=== PATIENT | female | born 1975 | race Caucasian/White ===

== ENCOUNTER 2019-12-31 13:08 | Observation (INO) | payer BC ==
[2019-12-31 15:42] LABS: Basophils % 1.1 % (0-1.3); Lymphocytes % 40.3 % (15.3-44.8); RBC Red Blood Cell Count 3.56 M/uL (3.86-4.86)
[2019-12-31 15:43] LABS: BUN Blood Urea Nitrogen 11 mg/dL (7-18); Bicarbonate 23 mmol/L (21-32); Glucose Level 88 mg/dL (74-106); Potassium 3.9 mmol/L (3.5-5.1); Sodium Level 138 mmol/L (136-145)
[2019-12-31 15:53] LABS: Hematocrit 19.6 % (36.0-45.0)
[2019-12-31] MEDS ORDERED: LORazepam 2 MG/ML VIAL ONE (16:11)
[2019-12-31] MEDS ORDERED: ONDANSETRON 4 MG/2 ML VIAL ONE ×2 (16:12→19:15)
[2019-12-31] MEDS ORDERED: ACETAMINOPHEN 500 MG TAB PO PRN (17:30)
--- NOTE | 2019-12-31 17:41 | P.HP ---
Certification for Inpatient Patient admitted to: Observation With expected LOS: <2 Midnights Patient will require the following post-hospital care: None Practitioner: I am a practitioner with admitting privileges, knowledge of patient current condition, hospital course, and medical plan of care. Services: Services provided to patient in accordance with Admission requirements found in Title 42 Section 412.3 of the Code of Federal Regulations Patient History Date of Service: 12/31/19 Reason for admission: Anemia History of Present Illness: 44-year-old female with no significant past medical history other than anxiety and chronic anemia came with generalized weakness and was diagnosed with anemia with a hemoglobin of 5.2 and is admitted for blood transfusions. The patient denies any bleeding. No history of melena or hematemesis, Denies any menorrhagia. No previous history of connective tissue disorder or hemolytic anemia. Patient has poor appetite. Denies any chest pain or shortness of breath No fever no chills No sick contacts Home medications list reviewed: Yes - Past Medical/Surgical History Past Medical History: Reviewed- Non-Contributory Past Surgical History: Reviewed- Non-Contributory - Family History Family History: Reviewed- Non-Contributory - Social History Smoking Status: Never smoker Review of Systems 10-point ROS is otherwise unremarkable Physical Examination - Vital Signs Temperature: 97.8 F Blood Pressure: 112/76 Pulse: 82 Respirations: 18 Pulse Ox (%): 98 - Physical Exam General: Alert, In no apparent distress, Oriented x3 HEENT: Atraumatic, Normocephalic Neck: Supple, 2+ carotid pulse no bruit Respiratory: Clear to auscultation bilaterally, Normal air movement Cardiovascular: Normal pulses, Regular rate/rhythm Capillary refill: <2 Seconds Gastrointestinal: Soft and benign, W/out hepatosplenomegaly, No guarding Musculoskeletal: No clubbing, No swelling Integumentary: No rashes, No breakdown Neurological: Normal speech, Normal strength at 5/5 x4 extr, Other (Anxious ) Rectal: Deferred - Studies Laboratory Data (last 24 hrs) 12/31/19 15:15: Sodium 138, Potassium 3.9, BUN 11, Creatinine 0.63, Glucose 88 12/31/19 15:15: WBC 4.9, Hgb 5.2 L*, Hct 19.6 L*, Plt Count 530 H Laboratory Last Values WBC 4.9 K/uL (4.3-10.9) 12/31/19 15:15 RBC 3.56 M/uL (3.86-4.86) L 12/31/19 15:15 Hgb 5.2 g/dL (12.0-15.0) L* 12/31/19 15:15 Hct 19.6 % (36.0-45.0) L* 12/31/19 15:15 MCV 55.1 fL (80-100) L 12/31/19 15:15 MCH 14.5 pg (27.0-35.0) L 12/31/19 15:15 MCHC 26.3 g/dL (32.0-36.0) L 12/31/19 15:15 RDW 21.2 % (12.1-15.2) H 12/31/19 15:15 Plt Count 530 K/uL (152-406) H 12/31/19 15:15 MPV 9.0 fL (7.6-11.3) 12/31/19 15:15 Neutrophils % 46.3 % (41.7-73.7) 12/31/19 15:15 Lymphocytes % 40.3 % (15.3-44.8) 12/31/19 15:15 Monocytes % 10.1 % (3.3-12.3) 12/31/19 15:15 Eosinophils % 2.2 % (0-4.4) 12/31/19 15:15 Basophils % 1.1 % (0-1.3) 12/31/19 15:15 Absolute Neutrophils 2.3 K/uL (1.8-8.0) 12/31/19 15:15 Absolute Lymphocytes 2.0 K/uL (0.7-4.9) 12/31/19 15:15 Absolute Monocytes 0.5 K/uL (0.1-1.3) 12/31/19 15:15 Absolute Eosinophils 0.1 K/uL (0-0.5) 12/31/19 15:15 Absolute Basophils 0.1 K/uL (0-0.5) 12/31/19 15:15 Sodium 138 mmol/L (136-145) 12/31/19 15:15 Potassium 3.9 mmol/L (3.5-5.1) 12/31/19 15:15 Chloride 110 mmol/L (98-107) H 12/31/19 15:15 Carbon Dioxide 23 mmol/L (21-32) 12/31/19 15:15 BUN 11 mg/dL (7-18) 12/31/19 15:15 Creatinine 0.63 mg/dL (0.55-1.3) 12/31/19 15:15 Estimated GFR > 90 mL/min (=/>90) 12/31/19 15:15 Glucose 88 mg/dL (74-106) 12/31/19 15:15 Calcium 8.6 mg/dL (8.5-10.1) 12/31/19 15:15 ABO/Rh O POSITIVE 12/31/19 15:15 Solid Phase Ab Screen Positive H 12/31/19 15:15 Assessment and Plan - Problems (Diagnosis) (1) Anemia Current Visit: Yes Status: Acute - Plan Anemia with hemoglobin 5.2 Hypochromic microcytic Plan monitor closely under telemetry Transfuse 2 units PRBC will monitor under observation as the patient has antibodies Will get a reticulocyte count, haptoglobin, iron and TIBC along with folic acid and vitamin B12 levels Will also get an stool occult blood Will get a repeat H and H post transfusion Possible Dc in a.m. Discharge Plan: Home Plan to discharge in: 24 Hours - Advance Directives Does patient have a Living Will: No Does patient have a Durable POA for Healthcare: No Time Spent Managing Pts Care (In Minutes): 35
[2019-12-31 18:11] LABS: ALT/SGPT 12 U/L (12-78); AST/SGOT 12 U/L (15-37); Albumin 3.8 g/dL (3.4-5.0); Alkaline Phosphatase 52 U/L (45-117); BUN Blood Urea Nitrogen 11 mg/dL (7-18); Bicarbonate 22 mmol/L (21-32); Bilirubin Total 0.2 mg/dL (0.2-1.0); Glucose Level 89 mg/dL (74-106); Potassium 3.9 mmol/L (3.5-5.1); Protein, Total 7.3 g/dL (6.4-8.2); Sodium Level 139 mmol/L (136-145)
[2019-12-31 18:37] LABS: Folic Acid, (Folate) 10.1 ng/mL (3.1-17.5)
[2019-12-31] MEDS: ONDANSETRON 4 MG/2 ML VIAL IV PRN (19:14)
[2019-12-31 19:26] LABS: RBC Red Blood Cell Count 3.45 M/uL (3.86-4.86)
[2019-12-31 20:20] LABS: Anisocytosis 1+; Blood Morphology Comment NOTED (NOT SEEN); Hypochromasia 3+; Platelet Estimate INCR; Poikilocytosis SLIGHT
[2019-12-31 20:23] LABS: Urine Appearance CLEAR; Urine Bilirubin NEGATIVE (NEG); Urine Blood NEGATIVE (NEG); Urine Color YELLOW; Urine Glucose NEGATIVE (NEG); Urine Protein NEGATIVE (NEG)
[2019-12-31 20:29] LABS: Urine Microscopic Reflex NO UMIC
[2019-12-31 22:01] LABS: Ovalocytes SLIGHT
[2019-12-31 22:42] VITALS: BMI 24.3
[2020-01-01] MEDS ORDERED: ACETAMINOPHEN 325 MG TABLET PO ONE (00:41)
[2020-01-01] MEDS ORDERED: DIPHENHYDRAMINE 50 MG/ML VIAL IV ONE ×2 (00:43→11:46)
[2020-01-01] MEDS ORDERED: NA CHLORIDE 0.9% 250 ML ONE ×2 (02:53→12:04)
[2020-01-01 04:22] VITALS: O2SAT 99
[2020-01-01] MEDS ORDERED: LEVOTHYROXINE SOD 0.075 MG TAB PO SCH (08:38)
[2020-01-01] MEDS ORDERED: ACETAMIN/CAFFEINE/BUTALB TAB PO SCH (09:00)
[2020-01-01] MEDS ORDERED: FERROUS SULFATE 325 MG TAB PO SCH (09:00)
[2020-01-01 11:14] LABS: Absolute Lymphocytes (CBC) 1.5 K/uL (0.7-4.9); Basophils % 1.8 % (0-1.3); Hematocrit 25.4 % (36.0-45.0); Lymphocytes % 28.8 % (15.3-44.8); MPV 8.7 fL (7.6-11.3); RBC Red Blood Cell Count 4.26 M/uL (3.86-4.86)
[2020-01-01] MEDS ORDERED: FUROSEMIDE 20 MG/ 2ML VIAL IV ONE (11:35)
--- NOTE | 2020-01-01 11:44 | DS ---
Discharge Diagnoses: 1. Acute microcytic hypochromic anemia. 2. History of migraine headaches. 3. Generalized anxiety disorder. 4. Hypothyroidism. Hospital Course: Patient is a 44-year-old female with past medical history of anxiety, chronic anemia with no significant workup done in the past. Does not know her baseline hemoglobin and has required transfusions in the past. Last transfusion was almost 1 year ago. Patient came in with hemoglobin of 5.2. Patient denied any abnormal bleeding, did not have any hematuria or blood in the stool. No melena or hematemesis, but recently completed her menstrual cycle, which was normal. She denied any menorrhagia. Patient was transfused 2 units of PRBCs. Hemoglobin was repeated. UA was negative. Her iron panel showed very low iron levels and she is very hypochromic microcytic and children's entertainer homemaker companion, Dr. Hurtado was consulted. She recommended outpatient followup in her office. Patient's Face sheet was faxed over to Dr. Hurtado's office. Patient was counseled regarding taking iron pills regularly. She was on a multivitamin with iron previously. She understands that she needs to have workup done for her anemia. Patient will also need IV iron infusions, which can be set up as an outpatient. She has had a scope done by Dr. Bowman within the past year and was negative. Patient's weakness and symptoms improved. She was not having any dizziness, was able to ambulate. Her blood pressure was stable. She was not tachycardic, hemodynamically stable. She was then cleared for discharge and was sent home in a stable condition. Followup: Patient to follow up with her primary care physician in 2-3 days. Follow up with children's entertainer, Dr. Hurtado in 1 week. Return to ER for worsening condition. Diet: Regular. Activity: As tolerated. Medications: As per medication reconciliation list. Physical Examination: General: Awake, alert, oriented x3. No acute distress. CV: S1-S2. No murmurs. Respiratory: Moving air well bilaterally. Abdomen: Soft, nontender, nondistended. Positive bowel sounds. Extremities: no clubbing cyanosis or edema Neuro: nonfocal SA/MODL Voice ID: [id number] Report ID: [id number] [facility]
[2020-01-01 11:45] LABS: Anisocytosis 3+; Blood Morphology Comment NOTED (NOT SEEN); Hypochromasia 3+; Platelet Estimate ADEQ; Urine White Blood Cell Casts OK
[2020-01-01 11:58] LABS: BUN Blood Urea Nitrogen 6 mg/dL (7-18); Bicarbonate 23 mmol/L (21-32); Glucose Level 87 mg/dL (74-106); Magnesium 2.3 mg/dL (1.8-2.4); Phosphorus 3.1 mg/dL (2.5-4.9); Potassium 4.6 mmol/L (3.5-5.1); Sodium Level 137 mmol/L (136-145)
[2020-01-01] MEDS: ONDANSETRON 4 MG/2 ML VIAL IV PRN (12:08)
[2020-01-01 12:35] VITALS: BP 115/55; TEMP 97.7
--- NOTE | 2020-01-04 15:59 | EDPHYS ---
Physician Documentation [facility] Name: Stephanie Espinoza Age: 44 yrs Sex: Female : 1975 Arrival Date: 12/31/2019 Time: 13:26 Bed 7 Private MD: ED Physician Cristian Davies HPI: 12/30 15:17 This 44 yrs old Female presents to ER via Ambulatory with complaints of BLOOD jr8 TRANSFUSION. 15:17 Patient stated that she has been feeling very fatigued. Went to PCP and had blood work jr8 done. Stated that she was called today by PCP and told to go to ED because her hemoglobin was low. Stated that she has had to transfusions in the past from chronic anemia. Denies hematemesis or melena . Severity of symptoms: At their worst the symptoms were moderate in the emergency department the symptoms are unchanged. The patient has experienced similar episodes in the past, a few times. The patient has been recently seen by a physician:. 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 - Social history:: Smoking status: unknown. ROS: 15:17 Eyes: Negative for injury, pain, redness, and discharge, ENT: Negative for injury, jr8 pain, and discharge, Neck: Negative for injury, pain, and swelling, Cardiovascular: Negative for chest pain, palpitations, and edema, Respiratory: Negative for shortness of breath, cough, wheezing, and pleuritic chest pain, Abdomen/GI: Negative for abdominal pain, nausea, vomiting, diarrhea, and constipation, Back: Negative for injury and pain, MS/Extremity: Negative for injury and deformity, Skin: Negative for injury, rash, and discoloration, Neuro: Negative for headache, weakness, numbness, tingling, and seizure. 15:17 Constitutional: Positive for fatigue, malaise. Exam: 15:17 ENT: Nares patent. No nasal discharge, no septal abnormalities noted. Tympanic jr8 membranes are normal and external auditory canals are clear. Oropharynx with no redness, swelling, or masses, exudates, or evidence of obstruction, uvula midline. Mucous membranes moist. Neck: Trachea midline, no thyromegaly or masses palpated, and no cervical lymphadenopathy. Supple, full range of motion without nuchal rigidity, or vertebral point tenderness. No Meningismus. Cardiovascular: Regular rate and rhythm with a normal S1 and S2. No gallops, murmurs, or rubs. Normal PMI, no JVD. No pulse deficits. Respiratory: Lungs have equal breath sounds bilaterally, clear to auscultation and percussion. No rales, rhonchi or wheezes noted. No increased work of breathing, no retractions or nasal flaring. Abdomen/GI: Soft, non-tender, with normal bowel sounds. No distension or tympany. No guarding or rebound. No evidence of tenderness throughout. Back: No spinal tenderness. No costovertebral tenderness. Full range of motion. Skin: Warm, dry with normal turgor. Pale in appearance with no rashes, no lesions, and no evidence of cellulitis. MS/ Extremity: Pulses equal, no cyanosis. Neurovascular intact. Full, normal range of motion. Neuro: Awake and alert, GCS 15, oriented to person, place, time, and situation. Cranial nerves II-XII grossly intact. Motor strength 5/5 in all extremities. Sensory grossly intact. Cerebellar exam normal. Normal gait. 15:17 Eyes: Periorbital structures: appear normal, Pupils: equal, round, and reactive to light and accomodation, Extraocular movements: intact throughout, Conjunctiva: pale, bilaterally, Corneas: are normal, Sclera: no appreciated abnormality, Anterior chamber: normal, Lids and lashes: appear normal. Vital Signs: 13:57 BP 120 / 72; Pulse 81; Resp 16; Temp 97.8; Pulse Ox 100% on R/A; Weight 64.41 kg; iw Height 5 ft. 4 in. (162.56 cm); Pain 0/10; 14:30 BP 110 / 62; Pulse 66; Resp 16; Pulse Ox 100% ; sv 15:00 BP 108 / 69; Pulse 57; Resp 16; Pulse Ox 100% ; sv 16:45 BP 103 / 72; Pulse 62; Resp 15; Pulse Ox 100% ; sv 18:18 BP 101 / 66; Pulse 61; Resp 16; Pulse Ox 100% ; sv 19:22 BP 105 / 76; Pulse 56; Resp 17 S; Pulse Ox 100% on R/A; jd3 13:57 Body Mass Index 24.37 (64.41 kg, 162.56 cm) iw MDM: 14:27 Patient medically screened. [facility] 16:30 Data reviewed: vital signs, nurses notes, lab test result(s), and as a result, I will [facility] admit patient. Data interpreted: Pulse oximetry: on room air is 100 %. Interpretation: normal. Counseling: I had a detailed discussion with the patient and/or guardian regarding: the historical points, exam findings, and any diagnostic results supporting the discharge/admit diagnosis, lab results, the need for further work-up and treatment in the hospital. ED course: Patient will be here several hours for transfusion and antibody screen and matching. Will admit for obs. 12/30 14:52 Order name: CBC with Diff [facility] 12/30 14:52 Order name: Basic Metabolic Panel; Complete Time: 15:52 [facility] 12/30 14:52 Order name: T\T\S [facility] 12/30 16:00 Order name: Bb Add On 12/30 16:05 Order name: Antibody Identification [facility] 12/30 17:34 Order name: Comprehensive Metabolic Panel [facility] 12/30 17:34 Order name: CBC with Automated Diff [facility] 12/30 17:34 Order name: CBC with Automated Diff [facility] 12/30 17:34 Order name: Magnesium [facility] 12/30 17:34 Order name: Magnesium [facility] 12/30 17:34 Order name: Phosphorus [facility] 12/30 17:34 Order name: Phosphorus [facility] 12/30 17:36 Order name: Urinalysis [facility] 12/30 17:37 Order name: Folic Acid, (Folate) [facility] 12/30 14:52 Order name: IV; Complete Time: 15:41 [facility] 12/30 17:10 Order name: Labs - recollect needed: collect red and purple top; Complete Time: 17:56 12/30 17:34 Order name: Regular [facility] 12/30 17:37 Order name: Transferrin Sat/Iron Binding [facility] 12/30 17:37 Order name: Vitamin B12 Level [facility] 12/30 17:37 Order name: Occult Blood [facility] 12/30 18:16 Order name: ABO/RH no charge [facility] 12/30 18:33 Order name: Labs - recollect needed: collect red top; Complete Time: 19:05 12/30 19:30 Order name: Retic Count [facility] Administered Medications: 16:10 Drug: Ativan 0.5 mg Route: IVP; Site: right antecubital; em 16:30 Follow up: Response: No adverse reaction; Marked relief of symptoms em 16:12 Drug: Zofran (Ondansetron) 4 mg Route: IVP; Site: right antecubital; em 16:30 Follow up: Response: No adverse reaction; Marked relief of symptoms; Nausea is decreasedem Disposition: 12/31/19 16:32 Hospitalization ordered by Sekou Stewart for Observation. Preliminary diagnosis is Anemia in chronic diseases classified elsewhere. - Bed requested for Telemetry/MedSurg (observation). - Status is Observation. jd3 - Condition is Stable. - Problem is new. - Symptoms are unchanged. Addendum: 01/02/2020 07:57 Co-signature as Attending Physician, Cristian Davies MD I agree with the assessment and k dr plan of care. Signatures: Dispatcher [employer] [facility] Zayda Stiles Cristian Davies MD MD [facility] Moy Majano RN RN Marla Bernstein RN RN Ralf Liang PA PA jr8 David Verdin RN RN jd3 Corrections: (The following items were deleted from the chart) 12/30 17:55 16:32 Hospitalization Ordered by Sekou Stewart MD for Observation. Preliminary bd diagnosis is Anemia in chronic diseases classified elsewhere. Bed requested for Telemetry/MedSurg (observation). Status is Observation. Condition is Stable. Problem is new. Symptoms are unchanged. jr8 20:05 17:55 12/31/2019 16:32 Hospitalization Ordered by Sekou Stewart MD for Observation. jd3 Preliminary diagnosis is Anemia in chronic diseases classified elsewhere. Bed requested for Telemetry/MedSurg (observation). Status is Observation. Condition is Stable. Problem is new. Symptoms are unchanged. bd
--- NOTE | 2020-01-04 15:59 | ER ---
Nurse's Notes [facility] Name: Stephanie Espinoza Age: 44 yrs Sex: Female : 1975 Arrival Date: 12/31/2019 Time: 13:26 Bed 7 Private MD: Diagnosis: Anemia in chronic diseases classified elsewhere Presentation: 12/30 13:57 Chief complaint: Patient states: had labs done at [facility] and was called today by her PCP dilip to come to ER for blood transfusion, does not know results, has been feeling weak, dizzy, finished her period but it was normal, not heavy , sent by LISE Garcia at Dr. Ji office. Coronavirus screen: Proceed with normal triage. Patient denies a cough. Patient denies shortness of breath or difficulty breathing. Patient denies measured and/or subjective temperature greater than 100.4F prior to today's visit. Patient denies travel on a cruise ship or to a country the [facility] currently lists as an affected area. Patient denies contact with known and/or suspected case of COVID-19. Ebola Screen: Patient negative for fever greater than or equal to 101.5 degrees Fahrenheit, and additional compatible Ebola Virus Disease symptoms Patient denies exposure to infectious person. Patient denies travel to an Ebola-affected area in the 21 days before illness onset. No symptoms or risks identified at this time. Initial Sepsis Screen: Does the patient meet any 2 criteria? No. Patient's initial sepsis screen is negative. Does the patient have a suspected source of infection? No. Patient's initial sepsis screen is negative. Risk Assessment: Do you want to hurt yourself or someone else? Patient reports no desire to harm self or others. Onset of symptoms was November 2019. 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 - Social history:: Smoking status: unknown. Screenin:15 Abuse screen: Denies threats or abuse. Nutritional screening: No deficits noted. em Tuberculosis screening: No symptoms or risk factors identified. Fall Risk None identified. Assessment: 15:10 General: Appears in no apparent distress. comfortable, Behavior is calm, cooperative, em appropriate for age, Denies fever. Pain: Denies pain. Neuro: Level of Consciousness is awake, alert, obeys commands, Oriented to person, place, time, situation, Appropriate for age. Cardiovascular: Capillary refill < 3 seconds Patient's skin is warm and dry. Respiratory: Airway is patent Respiratory effort is even, unlabored, Respiratory pattern is regular, symmetrical. GI: Abdomen is flat, Patient currently denies rectal bleeding. Derm: Skin is intact, is healthy with good turgor, Skin is dry, Skin is pale. Musculoskeletal: Capillary refill < 3 seconds, Range of motion: intact in all extremities. 16:00 Reassessment: pt crying and upset that she has to be in the hospital and receive blood em transfusion, pt also reports being sick to her stomach, provider notified. 16:20 Reassessment: Patient appears in no apparent distress at this time. Patient and/or em family updated on plan of care and expected duration. Pain level reassessed. reports nausea and anxiety has decrease. 17:14 Reassessment: Dr. Stewart at bedside. em 19:15 General: Appears in no apparent distress. comfortable, Behavior is cooperative, jd3 appropriate for age, anxious. Pain: Denies pain. Neuro: Level of Consciousness is awake, alert, obeys commands, Oriented to person, place, time, situation. Cardiovascular: Denies chest pain, Capillary refill < 3 seconds Patient's skin is warm and dry. Respiratory: Airway is patent Respiratory effort is even, unlabored, Respiratory pattern is regular, symmetrical, Denies cough, shortness of breath. GI: Abdomen is flat, non-distended, Reports nausea, Patient currently denies rectal bleeding. : No signs and/or symptoms were reported regarding the genitourinary system. EENT: No signs and/or symptoms were reported regarding the EENT system. Derm: Skin is intact, Skin is dry, Skin is pale, Skin temperature is warm. Musculoskeletal: Circulation, motion, and sensation intact. Range of motion: intact in all extremities. Vital Signs: 13:57 BP 120 / 72; Pulse 81; Resp 16; Temp 97.8; Pulse Ox 100% on R/A; Weight 64.41 kg; iw Height 5 ft. 4 in. (162.56 cm); Pain 0/10; 14:30 BP 110 / 62; Pulse 66; Resp 16; Pulse Ox 100% ; sv 15:00 BP 108 / 69; Pulse 57; Resp 16; Pulse Ox 100% ; sv 16:45 BP 103 / 72; Pulse 62; Resp 15; Pulse Ox 100% ; sv 18:18 BP 101 / 66; Pulse 61; Resp 16; Pulse Ox 100% ; sv 19:22 BP 105 / 76; Pulse 56; Resp 17 S; Pulse Ox 100% on R/A; jd3 13:57 Body Mass Index 24.37 (64.41 kg, 162.56 cm) iw ED Course: 13:26 Patient arrived in ED. fj1 14:00 Triage completed. iw 14:02 Arm band placed on. iw 14:25 Moy Majano, CHARLI is Primary Nurse. em 14:26 Ralf Liang PA is PHCP. jr8 14:26 Cristian Davies MD is Attending Physician. jr8 15:10 Patient has correct armband on for positive identification. Bed in low position. Call em light in reach. Pulse ox on. NIBP on. 16:20 PHCP role handed off by Ralf Liang PA [facility] 16:20 Zeke Colby PA is PHCP. [facility] 16:30 PHCP role handed off by Zeke Colby PA jr8 16:30 Ralf Liang PA is PHCP. jr8 16:31 Sekou Stewart MD is Hospitalizing Provider. jr8 19:23 Patient admitted, IV remains in place. jd3 Administered Medications: 16:10 Drug: Ativan 0.5 mg Route: IVP; Site: right antecubital; em 16:30 Follow up: Response: No adverse reaction; Marked relief of symptoms em 16:12 Drug: Zofran (Ondansetron) 4 mg Route: IVP; Site: right antecubital; em 16:30 Follow up: Response: No adverse reaction; Marked relief of symptoms; Nausea is decreasedem Outcome: 16:32 Decision to Hospitalize by Provider. jr8 20:05 Patient left the ED. jd3 Signatures: Kassi Child, RN Zeke Newton PA PA jmm Munoz, Edgar, RN RN em Williams, Irene, RN RN Ralf Alonso PA PA jrDavid Peacock RN RN jd3 Forrest Majano fj1 Corrections: (The following items were deleted from the chart) 14:02 13:57 Chief complaint: Patient states: had labs done at [facility] and was called today by iw her PCP to come to ER for blood transfusion, does not know results, has been feeling weak, dizzy, finished her period but it was normal, not heavy iw 17:20 15:10 Derm: Skin is intact, is healthy with good turgor, Skin is pink, warm \T\ dry. em em
== END 2020-01-01 15:50 | disposition home or self-care (01) ==
LOC: ER 13:08 → ERHOLD 17:35 → 2ND 19:45
PROVIDERS: ADMIT Family Medicine; ATTEND Family Medicine
PROC: 30233N1 Transfusion of Nonautologous Red Blood Cells into Peripheral Vein, Percutaneous Approach (ICD-10-PCS; principal; 2019-12-31)
DX: D50.9 Iron deficiency anemia, unspecified (principal); E03.9 Hypothyroidism, unspecified; F41.1 Generalized anxiety disorder; G43.909 Migraine, unspecified, not intractable, without status migrainosus; Z88.2 Allergy status to sulfonamides; Z88.3 Allergy status to other anti-infective agents; Z88.6 Allergy status to analgesic agent
CPT/HCPCS: 85025 ×2; 80048 ×2; 36415 ×2; 86900; 83735; 86850; 84100; 85044; 86870; 86901; 81003; 82746; 82607; 83540; 83010; 80053; 86922 ×2; 84466; 96375; 96374; 99283; 36430; J1940; J1200 ×2; P9016 ×2; J7030 ×2; J2405 ×3; G0378 ×2

== ENCOUNTER 2020-01-11 10:26 | Emergency (ER) | payer BC ==
[2020-01-11 12:29] LABS: Absolute Lymphocytes (CBC) 1.1 K/uL (0.7-4.9); Basophils % 1.2 % (0-1.3); Hematocrit 28.4 % (36.0-45.0); Lymphocytes % 19.8 % (15.3-44.8); MPV 9.4 fL (7.6-11.3)
[2020-01-11] MEDS ORDERED: MORPHINE 4 MG/ML SYR ONE ×2 (12:36→16:20)
[2020-01-11 12:48] LABS: Bilirubin Direct 0.2 mg/dL (0-0.2); Bilirubin Total 1.1 mg/dL (0.2-1.0); Protein, Total 7.9 g/dL (6.4-8.2)
[2020-01-11 12:51] LABS: Potassium 3.6 mmol/L (3.5-5.1)
[2020-01-11 13:00] LABS: Urine Amorphous Sediment 3+ /HPF (NONE SEEN); Urine Bacteria 20-50 /HPF (<20); Urine Culture Reflex Order REFLEXED
[2020-01-11 13:08] LABS: Anisocytosis 2+; Blood Morphology Comment NOTED (NOT SEEN); Hypochromasia 1+; Platelet Estimate ADEQ
[2020-01-11 13:09] LABS: Ovalocytes 1+; Polychromasia 2+
--- NOTE | 2020-01-11 13:10 | RAD REPORT ---
EXAM DESCRIPTION: CT - Abdomen Pelvis W Contrast - 01/11/2020 12:53 pm CLINICAL HISTORY: Abdominal pain/left flank pain COMPARISON: January 08, 2020 TECHNIQUE: Computed axial tomography of the abdomen pelvis was obtained. 100 cc Isovue-300 was admin istered intravenously. Oral contrast was given All CT scans are performed using dose optimization technique as appropriate and may include automated exposure control or mA/KV adjustment according to patient size. FINDINGS: Tiny low-density area within the liver is nonspecific but probably benign Spleen measures 15 centimeters The pancreas, adrenals kidneys unremarkable Cholecystectomy. The appendix is normal caliber. There is no evidence of diverticulitis 2 centimeter bilateral ovarian cyst with small amount of free fluid Apparent thickening of the wall of the distal stomach IMPRESSION: Mild to moderate splenomegaly 2 centimeter bilateral ovarian cyst with small amount of free fluid Apparent thickening of the wall of the distal stomach could be secondary to incomplete distention or pathology such as inflammation
[2020-01-11] MEDS ORDERED: FENTANYL CITR 100 MCG/2 ML ONE (13:16)
--- NOTE | 2020-01-11 17:41 | EDPHYS ---
Physician Documentation [facility] Name: Stephanie Espinoza Age: 44 yrs Sex: Female : 1975 Arrival Date: 01/11/2020 Time: 10:31 Bed 23 Private MD: ED Physician Cristian Davies HPI: 01/11 09:03 This 44 yrs old Female presents to ER via Ambulatory with complaints of kdr enlarged spleen. 09:03 The patient was seen here on Saturday with c/o left flank pain and was found to have a kdr moderately enlarged spleen. She was discharged home and since has continued to have worsening and persistent left flank pain. 09:50 Onset: The symptoms/episode began/occurred suddenly, 4 day(s) ago. Severity of kdr symptoms: At their worst the symptoms were moderate severe incapacitating just prior to arrival, in the emergency department the symptoms are unchanged. The patient has experienced a previous episode, last week. The patient has been recently seen by a physician: The patient has a history of chronic anemia and received a blood transfusion on . The following day, she began to have the flank pain. She received an additional transfusion on Saturday. Since then, she had continued to have unrelenting flank pain.. Historical: - Allergies: 01/10 10:43 Levaquin; ss 10:43 Sulfa (Sulfonamide Antibiotics); ss 10:43 tramadol; ss - PMHx: 10:43 Hypothyroidism; Migraines; ss - PSHx: 10:43 ; Cholecystectomy; ss - Immunization history:: Adult Immunizations up to date. - Social history:: Smoking status: Patient denies any tobacco usage or history of. ROS: 01/11 09:50 Constitutional: Negative for fever, chills, and weight loss, Eyes: Negative for injury, kdr pain, redness, and discharge, ENT: Negative for injury, pain, and discharge, Neck: Negative for injury, pain, and swelling, Cardiovascular: Negative for chest pain, palpitations, and edema, Respiratory: Negative for shortness of breath, cough, wheezing, and pleuritic chest pain, : Negative for injury, bleeding, discharge, and swelling, MS/Extremity: Negative for injury and deformity, Skin: Negative for injury, rash, and discoloration, Neuro: Negative for headache, weakness, numbness, tingling, and seizure activity. Psych: Negative for depression, anxiety, suicide ideation, homicidal ideation, and hallucinations, Allergy/Immunology: Negative for hives, rash, and allergies, Endocrine: Negative for neck swelling, polydipsia, polyuria, polyphagia, and marked weight changes, Hematologic/Lymphatic: Negative for swollen nodes, abnormal bleeding, and unusual bruising. Abdomen/GI: Positive for nausea, Negative for diarrhea, constipation, abdominal distension, anorexia, dysphagia, hematemesis, black/tarry stool, rectal pain, rectal bleeding, bowel incontinence. Exam: 09:50 Constitutional: This is a well developed, well nourished patient who is awake, alert, kdr and in mild distress. Head/Face: Normocephalic, atraumatic. Eyes: Pupils equal round and reactive to light, extra-ocular motions intact. Lids and lashes normal. Conjunctiva and sclera are non-icteric and not injected. Cornea within normal limits. Periorbital areas with no swelling, redness, or edema. Neck: Trachea midline, no thyromegaly or masses palpated, and no cervical lymphadenopathy. Supple, full range of motion without nuchal rigidity, or vertebral point tenderness. No Meningismus. Chest/axilla: Normal chest wall appearance and motion. Nontender with no deformity. No lesions are appreciated. Cardiovascular: Regular rate and rhythm with a normal S1 and S2. No gallops, murmurs, or rubs. Normal PMI, no JVD. No pulse deficits. Respiratory: Lungs have equal breath sounds bilaterally, clear to auscultation and percussion. No rales, rhonchi or wheezes noted. No increased work of breathing, no retractions or nasal flaring. Skin: Warm, dry with normal turgor. Normal color with no rashes, no lesions, and no evidence of cellulitis. MS/ Extremity: Pulses equal, no cyanosis. Neurovascular intact. Full, normal range of motion. Neuro: Awake and alert, GCS 15, oriented to person, place, time, and situation. Cranial nerves II-XII grossly intact. Motor strength 5/5 in all extremities. Sensory grossly intact. Cerebellar exam normal. Normal gait. Psych: Awake, alert, with orientation to person, place and time. Behavior, mood, and affect are within normal limits. 09:50 Abdomen/GI: Inspection: abdomen appears normal, Bowel sounds: active, diminished, in all quadrants, Palpation: soft, moderate abdominal tenderness, mass, is not appreciated, rebound tenderness, is not appreciated, voluntary guarding, is not appreciated, involuntary guarding, is not appreciated. Vital Signs: 01/10 10:40 BP 126 / 90; Pulse 81; Resp 18; Temp 98.8; Pulse Ox 100% on R/A; Weight 65.77 kg; ss Height 5 ft. 4 in. (162.56 cm); Pain 10/10; 11:30 BP 138 / 83; Pulse 80; Resp 16 S; Pulse Ox 100% on R/A; aa5 12:00 BP 148 / 94; Pulse 73; Resp 16 S; Pulse Ox 100% on R/A; aa5 13:00 BP 131 / 69; Pulse 53; Resp 18 S; Pulse Ox 99% on R/A; Pain 8/10; aa5 16:00 BP 138 / 73; Pulse 53; Resp 18; Pulse Ox 99% on R/A; ls4 17:00 BP 106 / 73; Pulse 72; Resp 16; Pulse Ox 99% on R/A; Pain 3/10; ls4 10:40 Body Mass Index 24.89 (65.77 kg, 162.56 cm) ss MDM: 17:40 Patient medically screened. [facility] 01/11 09:50 Data reviewed: vital signs, nurses notes. Counseling: I had a detailed discussion with kdr the patient and/or guardian regarding: the historical points, exam findings, and any diagnostic results supporting the discharge/admit diagnosis, lab results, radiology results, the need for outpatient follow up. 01/10 12:05 Order name: Type And Screen [facility] 01/10 12:05 Order name: Basic Metabolic Panel; Complete Time: 13:05 [facility] 01/10 12:05 Order name: CBC with Diff; Complete Time: 13:23 [facility] 01/10 12:05 Order name: Hepatic Function; Complete Time: 13:05 [facility] 01/10 12:18 Order name: Test, Serum; Complete Time: 13:05 [facility] 01/10 12:22 Order name: Urine Microscopic Only; Complete Time: 13:05 [facility] 01/10 12:05 Order name: CT Abd/Pelvis - IV Contrast Only; Complete Time: 13:23 [facility] 06/08 13:03 Order name: Urine Culture [facility] 01/10 13:07 Order name: Manual Differential; Complete Time: 13:23 [facility] 01/10 15:09 Order name: [place] Screen Profile; Complete Time: 16:55 kdr 01/10 16:06 Order name: Antibody Identification [facility] 01/10 12:05 Order name: IV Saline Lock; Complete Time: 12:18 kdr 01/10 12:05 Order name: Labs collected and sent; Complete Time: 12:18 kdr Administered Medications: 01/10 12:20 Drug: morphine 4 mg Route: IVP; Site: right antecubital; aa5 12:30 Follow up: Response: No adverse reaction; Pain is unchanged, physician notified aa5 12:20 Drug: Zofran (Ondansetron) 4 mg Route: IVP; Site: right antecubital; aa5 12:25 Follow up: Response: No adverse reaction aa5 12:30 Drug: morphine 4 mg Route: IVP; Site: right antecubital; aa5 12:32 Follow up: Response: No adverse reaction aa5 13:12 Drug: fentaNYL (PF) 25 mcg Route: IVP; Site: right antecubital; aa5 13:14 Follow up: Response: No adverse reaction aa5 16:16 Drug: morphine 4 mg Route: IVP; Site: right antecubital; ls4 16:46 Follow up: Response: No adverse reaction; Marked relief of symptoms ls4 18:10 Drug: [place] 10 mg-325 mg 1 tabs Route: PO; ls4 Disposition: 01/11/20 17:40 Discharged to Home. Impression: Left flank pain, Splenomegaly, not elsewhere classified. - Condition is Fair. - Discharge Instructions: Enlarged Spleen, Flank Pain, [id number]. - Prescriptions for Tylenol- Codeine #3 300-30 mg Oral Tablet - take 2 tablets by ORAL route every 6 hours As needed; 16 tablet. - Medication Reconciliation Form, Thank You Letter, Prescription Opioid Use form. - Follow up: Private Physician; When: 2 - 3 days; Reason: If symptoms return, Further diagnostic work-up, Recheck today's complaints, Continuance of care, Re-evaluation by your physician. - Problem is an ongoing problem. - Symptoms have improved. - Notes: As we discussed, if your pain worsens or if it abruptly goes away, return immediately or to the nearest emergency department. Signatures: Dispatcher [employer] [facility] Cristian Davies MD MD kdr Samantha Bosch RN RN aa5 Leigh Ann James RN RN ss Nina Cifuentes RN RN ls4 Corrections: (The following items were deleted from the chart) 16:03 15:02 Antibody Screen ordered. [facility] 18:11 17:40 01/11/2020 17:40 Discharged to Home. Impression: Left flank pain; Splenomegaly, ls4 not elsewhere classified. Condition is Fair. Forms are Medication Reconciliation Form, Thank You Letter, Antibiotic Education, Prescription Opioid Use. Follow up: Private Physician; When: 2 - 3 days; Reason: If symptoms return, Further diagnostic work-up, Recheck today's complaints, Continuance of care, Re-evaluation by your physician. Problem is an ongoing problem. Symptoms have improved. kdr
--- NOTE | 2020-01-11 17:41 | ER ---
Nurse's Notes [facility] Name: Stephanie Espinoza Age: 44 yrs Sex: Female : 1975 Arrival Date: 01/11/2020 Time: 10:31 Bed 23 Private MD: Diagnosis: Left flank pain;Splenomegaly, not elsewhere classified Presentation: 01/10 10:40 Chief complaint: Patient states: "Saturday I had a blood transfusion and ever since I ss left the hospital I've been having back pain and pain to my L side. I had an outpatient CT and they told me to come to the ER because my spleen is enlarged.". Coronavirus screen: Proceed with normal triage. Patient denies a cough. Patient denies shortness of breath or difficulty breathing. Patient denies measured and/or subjective temperature greater than 100.4F prior to today's visit. Patient denies travel on a cruise ship or to a country the [facility] currently lists as an affected area. Patient denies contact with known and/or suspected case of COVID-19. Ebola Screen: Patient denies exposure to infectious person. Patient denies travel to an Ebola-affected area in the 21 days before illness onset. Initial Sepsis Screen: Does the patient meet any 2 criteria? No. Patient's initial sepsis screen is negative. Does the patient have a suspected source of infection? No. Patient's initial sepsis screen is negative. Risk Assessment: Do you want to hurt yourself or someone else? Patient reports no desire to harm self or others. Onset of symptoms is unknown. 10:40 Method Of Arrival: Ambulatory ss 10:40 Acuity: AI 3 ss Historical: - Allergies: 10:43 Levaquin; ss 10:43 Sulfa (Sulfonamide Antibiotics); ss 10:43 tramadol; ss - PMHx: 10:43 Hypothyroidism; Migraines; ss - PSHx: 10:43 ; Cholecystectomy; ss - Immunization history:: Adult Immunizations up to date. - Social history:: Smoking status: Patient denies any tobacco usage or history of. Screenin:30 Abuse screen: Denies threats or abuse. Nutritional screening: No deficits noted. aa5 Tuberculosis screening: No symptoms or risk factors identified. Fall Risk None identified. Assessment: 11:30 General: Appears uncomfortable, Behavior is calm, cooperative. Pain: Complains of pain aa5 in left upper quadrant Pain does not radiate. Pain currently is 10 out of 10 on a pain scale. Quality of pain is described as sharp, Pain began 2-3 days ago. Is continuous. Neuro: Level of Consciousness is awake, alert, obeys commands, Oriented to person, place, time, situation. Cardiovascular: Heart tones S1 S2 present Rhythm is regular. Respiratory: Airway is patent Respiratory effort is even, unlabored, Respiratory pattern is regular, symmetrical. GI: Abdomen is round non-distended, Bowel sounds present X 4 quads. Abdomen is tender to palpation in left upper quadrant. : Reports blood in the urine since Saturday. Denies burning with urination. EENT: No signs and/or symptoms were reported regarding the EENT system. Derm: Skin is pink, warm \\T\\ dry. Musculoskeletal: Range of motion: intact in all extremities. 12:10 Reassessment: Dr. Davies at bedside. . aa5 12:30 Reassessment: Patient is alert, oriented x 3, equal unlabored respirations, skin aa5 warm/dry/pink. Patient states symptoms have not improved. Pain is unchanged. Dr. Davies notified. . Pain: Noted to be guarding, restless. 12:30 Reassessment: Patient is alert, oriented x 3, equal unlabored respirations, skin aa5 warm/dry/pink. Pt appears uncomfortable, unchanged from last assessment, MD notified and Morphine ordered. . 12:32 Reassessment: Pt to CT via wheelchair, accompanied by communications tower technician. . aa5 13:08 Reassessment: Patient is alert, oriented x 3, equal unlabored respirations, skin aa5 warm/dry/pink. 13:08 Reassessment: Pt appears more comfortable than previous assessment but c/o pain 8/10 on aa5 a pain scale. Dr. Davies notified of request for more pain medication. . 13:40 Reassessment: Patient is alert, oriented x 3, equal unlabored respirations, skin aa5 warm/dry/pink. Patient states feeling better. Patient states symptoms have improved. Pt appears comfortable at this time, lying down in bed. Call tabares remains within reach. Awaiting disposition. . 14:10 Reassessment: Pt's care resumed by Nina, RN. aa5 16:18 Pain: Complains of pain in left low back, left mid back and posterior aspect of left ls4 lateral abdomen Pain currently is 9 out of 10 on a pain scale. Vital Signs: 10:40 BP 126 / 90; Pulse 81; Resp 18; Temp 98.8; Pulse Ox 100% on R/A; Weight 65.77 kg; ss Height 5 ft. 4 in. (162.56 cm); Pain 10/10; 11:30 BP 138 / 83; Pulse 80; Resp 16 S; Pulse Ox 100% on R/A; aa5 12:00 BP 148 / 94; Pulse 73; Resp 16 S; Pulse Ox 100% on R/A; aa5 13:00 BP 131 / 69; Pulse 53; Resp 18 S; Pulse Ox 99% on R/A; Pain 8/10; aa5 16:00 BP 138 / 73; Pulse 53; Resp 18; Pulse Ox 99% on R/A; ls4 17:00 BP 106 / 73; Pulse 72; Resp 16; Pulse Ox 99% on R/A; Pain 3/10; ls4 10:40 Body Mass Index 24.89 (65.77 kg, 162.56 cm) ED Course: 10:31 Patient arrived in ED. as 10:43 Triage completed. ss 10:43 Arm band placed on right wrist. ss 11:28 Samantha Bosch, CHARLI is Primary Nurse. aa5 11:30 Patient has correct armband on for positive identification. Placed in gown. Bed in low aa5 position. Call light in reach. Side rails up X2. Pulse ox on. NIBP on. 11:31 Cristian Davies MD is Attending Physician. kdr 12:10 Initial lab(s) drawn, by tx, sent to lab. Inserted saline lock: 20 gauge in right aa5 antecubital area, using aseptic technique. Blood collected. 12:54 CT Abd/Pelvis - IV Contrast Only In Process Unspecified. [facility] 14:08 Urine Culture Sent. aa5 18:10 No provider procedures requiring assistance completed. Patient did not have IV access ls4 during this emergency room visit. IV discontinued, intact, bleeding controlled, No redness/swelling at site. Pressure dressing applied. Administered Medications: 12:20 Drug: morphine 4 mg Route: IVP; Site: right antecubital; aa5 12:30 Follow up: Response: No adverse reaction; Pain is unchanged, physician notified aa5 12:20 Drug: Zofran (Ondansetron) 4 mg Route: IVP; Site: right antecubital; aa5 12:25 Follow up: Response: No adverse reaction aa5 12:30 Drug: morphine 4 mg Route: IVP; Site: right antecubital; aa5 12:32 Follow up: Response: No adverse reaction aa5 13:12 Drug: fentaNYL (PF) 25 mcg Route: IVP; Site: right antecubital; aa5 13:14 Follow up: Response: No adverse reaction aa5 16:16 Drug: morphine 4 mg Route: IVP; Site: right antecubital; ls4 16:46 Follow up: Response: No adverse reaction; Marked relief of symptoms ls4 18:10 Drug: [place] 10 mg-325 mg 1 tabs Route: PO; ls4 Outcome: 17:40 Discharge ordered by . kdr 18:11 Discharged to home ambulatory. ls4 18:11 Condition: good 18:11 Discharge instructions given to patient, family, Instructed on discharge instructions, follow up and referral plans. safety practices, Demonstrated understanding of instructions, follow-up care, medications, Prescriptions given X 1. 18:11 Patient left the ED. ls4 Signatures: Dispatcher [employer] [facility] Crisitan Davies MD MD kdr Martinez, Amelia as Calderon, Audri, RN RN aa5 Leigh Ann James RN RN ss Stewart, Lisa, RN RN ls4 Corrections: (The following items were deleted from the chart) 13:16 13:12 Reassessment: Patient is alert, oriented x 3, equal unlabored respirations, skin aa5 warm/dry/pink. aa5
[2020-01-11] MEDS ORDERED: HYDROCODONE/APAP 10/325 TAB ONE (18:04)
[2020-01-11 18:28] VITALS: TEMP 98.8
[2020-01-11 18:33] VITALS: O2SAT 99
[2020-01-11 18:35] VITALS: BP 106/73
== END 2020-01-11 18:11 | disposition home or self-care (01) ==
LOC: ER 10:26
DX: R16.1 Splenomegaly, not elsewhere classified (principal); Z88.1 Allergy status to other antibiotic agents; Z88.2 Allergy status to sulfonamides; Z88.5 Allergy status to narcotic agent
CPT/HCPCS: 87088; 85025; 87086; 80048; 36415; 86900; 86850; 86308; 84703; 86870; 86901; 80076; 81015; 74177; 96375; 96374; 99284; Q9967; J3010

== ENCOUNTER 2020-09-25 20:01 | Emergency (ER) | payer BC ==
--- OUTSIDE RECORDS SUMMARY | 2020-09-25 20:05 | XMS REPORT | Continuity of Care Document ---
:1975 Author Organization [facility] t Address [address] [place] [address] Care Team Providers Name Role Phone Unavailable Unavailable Unavailable Payers Payer Name Policy Type Policy Number Effective Date Expiration Date S ource Problems This patient has no known problems. Allergies, Adverse Reactions, Alerts Allergy Allergy Status Severity Reaction(s) Onset Inactive Treating Comm ents Source Name Type Date Date Clinician Sulfa DA Active 0 [facility] (Sulfona 9-30 [place] mide 00:00: d Antibiot 00 Medical ics) Center tramadol DA Active SV 2020-0 [facility] 9[facility]30 [place] 00:[facility]: d 00 [facility] levoflox DA Active SV 2020-0 [facility]in 9-30 [place] 00:00: d 00 [facility] Medications This patient has no known medications. Procedures This patient has no known procedures. Results Test Description Test Time Test Comments Results Result Comments Source SURG 2020-05-11 14:36:00 --------RUN DATE: 05/11/20 JT [facility] - LAB PAGE 1 RUN TIME: 1436 Specimen Inquiry RUN USER: INTERFACE --------PATIENT: MODESTO STEWART LOC: [facility] U #: [id number] AGE/SX: 44/F ROOM: RE05/05/20REG DR: Corinna Cooley : 77 BED: DIS: STATUS: [facility] TLOC: -------- SPEC #: [id number] RECD: 05/06/20 STATUS: B[place] REQ #: [id number] NIMCO: 05/05/[address] [facility] [address]: Corinna Cooley MD ENTERED: 05/06/20 SP TYPE: SURG OTHR DR: Carlos Ji Jr, MD ORDERED: SURG PATH LVL 5 COPIES TO: Carlos Ji Jr, MD [address] [facility] [address] [place] [address] Corinna Cooley MD [address] [facility] [place] [address] [place] [address] HISTOLOGY: TISSUE ID BLK PCS HENOK LEV PROCEDURE DISPOSITION ____ ___ ___ ___ UTERUS, NOS A 1 1 PROCEDURES: SURG PATH LVL 5 (05/06/20) TISSUES: A. UTERUS, NOS - UTERUS, CERVIX AND BILATERAL TUBES CLINICAL HISTORY PAIN - R10.2; ANEMIA - D50.9; EXCESSIVE/FREQUENT MENSES - N92.0 CPT CODES CPT CODE(S): 34372 , , , , , , FINAL DIAGNOSIS Uterus, cervix and bilateral fallopian tubes, hysterectomy and bilateral salpingectomy: CHRONIC CERVICITIS NABOTHIAN CYST ADENOMYOSIS BILATERAL FALLOPIAN TUBES WITH PARATUBAL CYSTS CONTINUED ON NEXT PAGE --------RUN DATE: 05/11/20 [facility] PAGE 2 RUN TIME: 1436 Specimen Inquiry RUN USER: INTERFACE --------SPEC #: [facility]:[id number] PATIENT: MODESTO STEWART #[id number] (Continued) GROSS DESCRIPTION Uterus, cervix and bilateral fallopian tubes. Received in formalin is a 121.4-gram hysterectomy and bilateral salpingectomy specimen including a uterus with attached cervix (9.5 x 6.5 x 4.5 cm, a separate longer portion of fallopian tube with fimbriated end (3.7 x 1.5 x 1.0 cm) and a separate shorter segment of fallopian tube with fimbriated end (3.5 x 1.0 x 1.0 cm). The serosal surface is elizondo-brown, smooth and glistening. The cervix measures 4.0 x 3.5 x 4.0 cm (depth) with an ovoid os, 0.9 cm. The cervix contain a several cysts filled with translucent viscous fluid, the largest measures 0.6 cm in greatest dimension. The endometrial cavity measures 2.2 cm from cornu to cornu x 4.0 cm in length with a hemorrhagic endometrium, 0.3 cm. The myometrium is maximally 2.1 cm in thickness, and contains focal areas with coarse trabeculations. The longer fallopian is slightly tortuous, has a patent lumen and is grossly unremarkable except for a thin-walled paratubal cyst, 0.8 cm filled with translucent non-viscous fluid. The shorter segment of fallopian is slightly tortuous, has a patent lumen and is grossly unremarkable. Putty Mixer And Applier sections are submitted. ba/nr Section code: A1 Anterior cervix A2 Posterior cervix A3-A4 Anterior endometrium/myometriu m A5-A6 Posterior endometrium/myometriu m A7 Serosa (posterior cul-de-sac) A8 Fimbria - Longer fallopian tube A9 Cross-sections of Longer fallopian tube paratubal cyst A10 Fimbria - Compton fallopian tube A11 Cross-sections of Compton fallopian tube Grossing performed at [facility], [address] [place] [address], [address], [place] [address]. Durability Engineer: Alexey Song M.D. MICROSCOPIC DESCRIPTION Uterus, cervix and bilateral fallopian tubes. Sections demonstrate squamous ectocervix and glandular endocervix. Nabothian cysts and chronic cervicitis are identified. Sections of endometrium demonstrate secretory phase endometrium. The myometrium demonstrates adenomyosis. Sections of the fallopian demonstrate unremarkable fallopian tube with paratubal cysts. Signed SIGNATURE ON FILE Chip Zhang 05/11/20 1436 -------- END OF REPORT COVID 19 INHOUSE AG 2020-05-04 12:30:00 Test Item Value Reference Range Interpretation Comme nts COVID 19 INHOUSE AG (test code = NEGATIVE Negative Per dater assembler, negative [id number]) results should be treated aspresumptive a nd, if inconsistent wi th clinical signs andsymptoms or necessary for patient managem ent, should betested with a n alternative molecular assay . Negative resultsdo not p reclude SARS-CoV-2 infection and s hould not be usedas the sole basis for patient management mariami chasidy. Negative results should be considered in the context of apatient's recent exposures, hist ory, presence of clinicalsigns a nd symptoms consistent with COVID-19. URINALYSIS [id number] 12:15:00 Test Item Value Reference Range Interpretation Comments UA GLUCOSE DIPSTICK (test NEGATIVE mg/dL NEG code = DGLUU) UA BILIRUBIN DIPSTICK (test NEGATIVE mg/dL NEG code = BILU) UA KETONE DIPSTICK (test NEGATIVE mg/dL NEG code = KETU) UA SPECIFIC GRAVITY (test 1.025 SG 1.005-1.030 code = SGU) UA BLOOD DIPSTICK (test NEGATIVE mg/DL NEG code = MARISOL) UA PH DIPSTICK (test code = 6.0 pH UNITS 5.0-7.0 TRISHA) UA PROTEIN DIPSTICK (test NEGATIVE mg/dL NEG code = PROU) UA UROBILINIOGEN DIPSTICK 0.2 mg/dL <2.0 (test code = URO) UA NITRITE DIPSTICK (test NEGATIVE SCREEN NEG code = TIKA) UA LEUKOCYTE ESTERASE NEGATIVE Leuk/mcL NEGATIVE DIPSTICK (test code = LEUU) Urine Specimen Type: Clean CatchUR HCG [id number] 12:15:00 Test Item Value Reference Range Interpretation Comments UR HCG QUAL (test code = HCGQLU) NEGATIVE Urine Specimen Type: Clean CatchURINALYSIS [id number] 12:15:00 Test Item Value Reference Range Interpretation Comments UA GLUCOSE DIPSTICK (test NEGATIVE mg/dL NEG code = DGLUU) UA BILIRUBIN DIPSTICK (test NEGATIVE mg/dL NEG code = BILU) UA KETONE DIPSTICK (test NEGATIVE mg/dL NEG code = KETU) UA SPECIFIC GRAVITY (test 1.025 SG 1.005-1.030 code = SGU) UA BLOOD DIPSTICK (test NEGATIVE mg/DL NEG code = MARISOL) UA PH DIPSTICK (test code = 6.0 pH UNITS 5.0-7.0 TRISHA) UA PROTEIN DIPSTICK (test NEGATIVE mg/dL NEG code = PROU) UA UROBILINIOGEN DIPSTICK 0.2 mg/dL <2.0 (test code = URO) UA NITRITE DIPSTICK (test NEGATIVE SCREEN NEG code = TIKA) UA LEUKOCYTE ESTERASE NEGATIVE Leuk/mcL NEGATIVE DIPSTICK (test code = LEUU) Urine Specimen Type: Clean CatchUR HCG [id number] 12:15:00 Test Item Value Reference Range Interpretation Comments UR HCG QUAL (test code = HCGQLU) NEGATIVE NEGATIVE Urine Specimen Type: Clean CatchCBC W/AUTO [id number] 12:11:00 Test Item Value Reference Range Interpretation Comments WHITE BLOOD CELL (test code = 3.7 K/mm3 3.5-11.0 N WBC) RED BLOOD CELL (test code = 4.82 M/mm3 4.70-6.10 N RBC) HEMOGLOBIN (test code = HGB) 14.4 G/DL 10.4-14.9 N HEMATOCRIT (test code = HCT) 42.9 % 31.5-44.1 N MEAN CELL VOLUME (test code = 89.0 Fl 84.5-98.6 N MCV) MEAN CELL HGB (test code = MCH) 29.9 pg 27.0-34.2 N MEAN CELL HGB CONCETRATION 33.6 G/DL 31.5-34.0 N (test code = MCHC) RED CELL DISTRIBUTION WIDTH 12.8 SD 11.5-14.5 N (test code = RDW) PLATELET COUNT (test code = 264 K/mm3 150-450 N PLT) MEAN PLATELET VOLUME (test code 10.70 fL 7.0-10.5 H = MPV) NEUTROPHIL % (test code = NT%) 47.8 % 40-76 N IMMATURE GRANULOCYTE % (test 0.3 % 0.0-5.0 N code = IG%) LYMPHOCYTE % (test code = LY%) 35.8 % 20.5-51.1 N MONOCYTE % (test code = MO%) 12.6 % 1.7-9.3 H EOSINOPHIL % (test code = EO%) 2.7 % 0.0-6.0 N BASOPHIL % (test code = BA%) 0.8 % 0.0-2.0 N NUCLEATED RBC % (test code = 0.0 /100WBC% 0.0-1.0 N NRBC%) NEUTROPHIL # (test code = NT#) 1.8 K/mm3 1.8-7.6 N IMMATURE GRANULOCYTE # (test 0.01 x10 3/uL 0.00-0.03 N code = IG#) LYMPHOCYTE # (test code = LY#) 1.3 K/mm3 0.6-3.2 N MONOCYTE # (test code = MO#) 0.5 K/mm3 0.3-1.1 N EOSINOPHIL # (test code = EO#) 0.1 K/mm3 0.0-0.4 N BASOPHIL # (test code = BA#) 0.0 K/mm3 0.0-0.1 N NUCLEATED RBC # (test code = 0.0 K/mm3 0.0-0.1 N NRBC#) MANUAL DIFF REQUIRED (test code NO DIFF/SCN CRITERIA = MDIFF)
[2020-09-25 22:56] LABS: Absolute Lymphocytes (CBC) 1.9 K/uL (0.7-4.9); Basophils % 1.1 % (0-1.3); Hematocrit 40.3 % (36.0-45.0); Lymphocytes % 34.4 % (15.3-44.8); MPV 9.4 fL (7.6-11.3); RBC Red Blood Cell Count 4.49 M/uL (3.86-4.86)
[2020-09-25 23:07] LABS: Potassium 3.7 mmol/L (3.5-5.1)
[2020-09-25] MEDS ORDERED: MORPHINE 2 MG/ML SYR ONE (23:11)
[2020-09-25] MEDS ORDERED: ONDANSETRON 4 MG/2 ML VIAL ONE (23:11)
[2020-09-25] MEDS ORDERED: NA CHLORIDE 0.9% 1,000 ML ONE (23:11)
[2020-09-25 23:23] LABS: Urine Blood NEGATIVE (NEG); Urine Glucose NEGATIVE (NEG); Urine Protein 1+ (NEG); Urine Specific Gravity 1.015 (1.005-1.030); Urine pH 8.5 (5.0-7.0)
[2020-09-26] MEDS ORDERED: MORPHINE 2 MG/ML SYR ONE (00:49)
[2020-09-26] MEDS ORDERED: KETOROLAC 30 MG/ML INJ ONE (01:21)
--- NOTE | 2020-09-26 03:02 | EDPHYS ---
Physician Documentation [facility] Name: Stephanie Espinoza Age: 44 yrs Sex: Female : 1975 Arrival Date: 09/25/2020 Time: 20:03 Bed 19 Private MD: Carlos Ji E ED Physician Jacinto Jones HPI: 09/25 23:06 This 44 yrs old Female presents to ER via Ambulatory with complaints of mh7 Vaginal Bleeding, Pelvic Pain. 23:06 The patient presents with pelvic pain, that is located in/on the pelvis, the pain does mh7 not radiate, the pain is described as crampy, intermittent, waxing and waning, vaginal bleeding that is moderate. Onset: The symptoms/episode began/occurred 1 week(s) ago. Modifying factors: The symptoms are alleviated by nothing, the symptoms are aggravated by nothing. Associated signs and symptoms: Pertinent positives: cramping, nausea, vaginal bleeding, Pertinent negatives: constipation, diarrhea, dyspareunia, dysuria, fever, hematuria, urinary frequency, vaginal discharge, vomiting. Severity of symptoms: At their worst the symptoms were moderate, yesterday, in the emergency department the symptoms are unchanged. The patient has experienced similar episodes in the past, multiple times. Patient states that she had a hysterectomy 05/24 and has been having vaginal spotting since then. She states that she has had increased bleeding for the past week and lower abdominal/pelvic cramping.. 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 - Social history:: Smoking status: Patient denies any tobacco usage or history of. ROS: 23:06 Constitutional: Negative for fever, chills, and weight loss, Eyes: Negative for injury, mh7 pain, redness, and discharge, ENT: Negative for injury, pain, and discharge, Neck: Negative for injury, pain, and swelling, Cardiovascular: Negative for chest pain, palpitations, and edema, Respiratory: Negative for shortness of breath, cough, wheezing, and pleuritic chest pain, Back: Negative for injury and pain, MS/Extremity: Negative for injury and deformity, Skin: Negative for injury, rash, and discoloration, Neuro: Negative for headache, weakness, numbness, tingling, and seizure, Psych: Negative for depression, anxiety, suicide ideation, homicidal ideation, and hallucinations, Allergy/Immunology: Negative for hives, rash, and allergies, Endocrine: Negative for neck swelling, polydipsia, polyuria, polyphagia, and marked weight changes, Hematologic/Lymphatic: Negative for swollen nodes, abnormal bleeding, and unusual bruising. Exam: 23:06 Constitutional: This is a well developed, well nourished patient who is awake, alert, mh7 and in no acute distress. Head/Face: Normocephalic, atraumatic. Eyes: Pupils equal round and reactive to light, extra-ocular motions intact. Lids and lashes normal. Conjunctiva and sclera are non-icteric and not injected. Cornea within normal limits. Periorbital areas with no swelling, redness, or edema. Neck: Trachea midline, no thyromegaly or masses palpated, and no cervical lymphadenopathy. Supple, full range of motion without nuchal rigidity, or vertebral point tenderness. No Meningismus. Chest/axilla: Normal chest wall appearance and motion. Nontender with no deformity. No lesions are appreciated. Cardiovascular: Regular rate and rhythm with a normal S1 and S2. No gallops, murmurs, or rubs. Normal PMI, no JVD. No pulse deficits. Respiratory: Lungs have equal breath sounds bilaterally, clear to auscultation and percussion. No rales, rhonchi or wheezes noted. No increased work of breathing, no retractions or nasal flaring. 23:23 Back: No spinal tenderness. No costovertebral tenderness. Full range of motion. mh7 Skin: Warm, dry with normal turgor. Normal color with no rashes, no lesions, and no evidence of cellulitis. MS/ Extremity: Pulses equal, no cyanosis. Neurovascular intact. Full, normal range of motion. Neuro: Awake and alert, GCS 15, oriented to person, place, time, and situation. Cranial nerves II-XII grossly intact. Motor strength 5/5 in all extremities. Sensory grossly intact. Cerebellar exam normal. Normal gait. Psych: Awake, alert, with orientation to person, place and time. Behavior, mood, and affect are within normal limits. 23:23 Abdomen/GI: Inspection: abdomen appears normal, Bowel sounds: normal, in all quadrants, Palpation: moderate abdominal tenderness, in the suprapubic area and left lower quadrant, Rectal exam: the exam is deferred, because of patient request, Indicators: McBurney's point is not tender, Pascual's sign is negative, Rovsing's sign is negative, Obturator sign is negative, Psoas sign is negative, Liver: no appreciated palpable abnormalities, Hernia: not appreciated. 09/26 01:06 : CVA tenderness, is absent, Pelvic Exam: External exam: is normal, Speculum exam: mh7 scant bleeding, bimanual exam reveals no uterine tenderness, no adnexa tenderness or masses bilaterally, discharge, is not appreciated, the nurse was present for the exam, Rectal exam: is refused by patient or guardian. : Pelvic Exam: cuff intact. Vital Signs: 09/25 20:16 BP 125 / 80; Pulse 89; Resp 18; Temp 98.2(O); Pulse Ox 98% ; Weight 61.69 kg; Height 5 ss ft. 4 in. (162.56 cm); Pain 7/10; 09/26 00:16 BP 121 / 95; Pulse 80; Resp 18; Pulse Ox 100% on R/A; mg2 01:24 BP 122 / 70; Pulse 81; Resp 18; Pulse Ox 100% on R/A; mg2 03:16 BP 121 / 80; Pulse 89; Resp 18; Temp 98; Pulse Ox 100% on R/A; mg2 09/25 20:16 Body Mass Index 23.34 (61.69 kg, 162.56 cm) ss MDM: 02:59 Differential diagnosis: dysmenorrhea, ovarian cyst, urinary tract infection, Ovarian mh7 torsion. Data reviewed: vital signs, nurses notes, lab test result(s), CBC, electrolytes, urinalysis, radiologic studies, CT scan, ultrasound. Data interpreted: Pulse oximetry: on room air is 100 %. Interpretation: normal. Counseling: I had a detailed discussion with the patient and/or guardian regarding: the historical points, exam findings, and any diagnostic results supporting the discharge/admit diagnosis, lab results, radiology results, the need for outpatient follow up, an OB/Gyne specialist, to return to the emergency department if symptoms worsen or persist or if there are any questions or concerns that arise at home. Response to treatment: the patient's symptoms have markedly improved after treatment. 03:01 Patient medically screened. [facility] 09/25 22:29 Order name: Abo/rh Typing; Complete Time: 00:22 [facility] 09/25 22:29 Order name: Basic Metabolic Panel; Complete Time: 23:13 [facility] 09/25 22:29 Order name: CBC with Diff; Complete Time: 23:06 [facility] 09/25 22:43 Order name: CT Abd/Pelvis - IV Contrast Only [facility] 09/25 23:08 Order name: Urine Dipstick--Ancillary (enter results); Complete Time: 00:22 tt3 09/25 22:29 Order name: IV Saline Lock; Complete Time: 22:37 [facility] 09/25 22:29 Order name: Labs collected and sent; Complete Time: 22:38 [facility] 09/26 00:27 Order name: US Pelvis Complete [facility] 09/25 22:29 Order name: NPO; Complete Time: 22:38 [facility] 09/25 22:29 Order name: Urine Dipstick-Ancillary (obtain specimen); Complete Time: 22:59 mg2 Administered Medications: 09/25 22:59 Drug: Zofran (Ondansetron) 4 mg Route: IVP; Site: right antecubital; mg2 09/26 00:17 Follow up: Response: No adverse reaction mg2 09/25 22:59 Drug: morphine 2 mg Route: IVP; Site: right antecubital; mg2 09/26 00:17 Follow up: Response: No adverse reaction [facility] 09/25 22:59 Drug: NS 0.9% 1000 ml Route: IV; Rate: 1000 ml; Site: right antecubital; mg2 09/26 00:16 Follow up: Response: No adverse reaction; IV Status: Completed infusion; IV Intake: mg2 1000ml 00:41 Drug: morphine 2 mg Route: IVP; Site: right antecubital; mg2 01:07 Follow up: Response: No adverse reaction; Marked relief of symptoms mg2 01:07 Drug: TORadol 30 mg Route: IVP; Site: right antecubital; mg2 02:20 Follow up: Response: No adverse reaction; Marked relief of symptoms mg2 Disposition: 09/26/20 03:01 Discharged to Home. Impression: Vaginal Bleeding, Ovarian Cyst. - Condition is Stable. - Discharge Instructions: Ovarian Cyst, [id number]. - Prescriptions for Zofran ODT 4 mg Oral tablet,disintegrating - place 1 tablet by TRANSLINGUAL route every 8 hours As needed; 6 tablet. ketorolac 10 mg Oral tablet - take 1 tablet by ORAL route every 6 hours As needed not to exceed 40 mg in 24hrs; 12 tablet. - Medication Reconciliation Form, Thank You Letter, Antibiotic Education, Prescription Opioid Use form. - Follow up: Corinna Cooley MD; When: 1 - 2 days; Reason: Worsening of condition, Recheck today's complaints, Continuance of care, Re-evaluation by your physician. - Problem is an ongoing problem. - Symptoms have improved. Signatures: Dispatcher [employer] [facility] Leigh Ann James RN RN ss Viktor Connolly RN RN mg2 Jacinto Jones MD MD mh7 Corrections: (The following items were deleted from the chart) 02:43 00:28 Transvaginal Study (Probe)+US.RAD.BRZ ordered. [facility] EDKY 03:17 03:01 09/26/2020 03:01 Discharged to Home. Impression: Vaginal Bleeding; Ovarian Cyst. mg2 Condition is Stable. Forms are Medication Reconciliation Form, Thank You Letter, Antibiotic Education, Prescription Opioid Use. Follow up: Corinna Cooley; When: 1 - 2 days; Reason: Worsening of condition, Recheck today's complaints, Continuance of care, Re-evaluation by your physician. Problem is an ongoing problem. Symptoms have improved. mh7
--- NOTE | 2020-09-26 03:02 | ER ---
Nurse's Notes [facility] Name: Stephanie Espinoza Age: 44 yrs Sex: Female : 1975 Arrival Date: 09/25/2020 Time: 20:03 Bed 19 Private MD: Carlos Ji E Diagnosis: Vaginal Bleeding;Ovarian Cyst Presentation: 09/25 20:16 Chief complaint: Patient states: Intermittent vaginal bleeding since having ss hysterectomy 05/05/20. Pt has been seeing Dr. Cooley off and on, but states since yesterday the bleeding is getting worse. Coronavirus screen: Client denies travel out of the [place] in the last 14 days. Ebola Screen: Patient denies exposure to infectious person. Patient denies travel to an Ebola-affected area in the 21 days before illness onset. Initial Sepsis Screen: Does the patient meet any 2 criteria? Does the patient have a suspected source of infection? No. Patient's initial sepsis screen is negative. Risk Assessment: Do you want to hurt yourself or someone else? Patient reports no desire to harm self or others. Onset of symptoms was May 05, 2020. 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 - Social history:: Smoking status: Patient denies any tobacco usage or history of. Screenin:39 Abuse screen: Denies threats or abuse. Denies injuries from another. Nutritional mg2 screening: No deficits noted. Tuberculosis screening: No symptoms or risk factors identified. Fall Risk IV access (20 points). Assessment: 22:38 General: Appears in no apparent distress. comfortable, Behavior is calm, cooperative. mg2 Pain: Complains of pain in abdomen Pain does not radiate. Pain currently is 5 out of 10 on a pain scale. Neuro: Level of Consciousness is awake, alert, obeys commands, Oriented to person, place, time, situation. Cardiovascular: Capillary refill < 3 seconds Patient's skin is warm and dry. Respiratory: Airway is patent Respiratory effort is even, unlabored, Respiratory pattern is regular, symmetrical. GI: No signs and/or symptoms were reported involving the gastrointestinal system. : Reports vaginal bleeding that is with clots. EENT: No signs and/or symptoms were reported regarding the EENT system. Derm: Skin is intact, is healthy with good turgor, Skin is pink, warm \T\ dry. normal. Musculoskeletal: Circulation, motion, and sensation intact. Capillary refill < 3 seconds. 09/26 00:15 Reassessment: Patient appears in no apparent distress at this time. Patient and/or mg2 family updated on plan of care and expected duration. Pain level reassessed. Patient is alert, oriented x 3, equal unlabored respirations, skin warm/dry/pink. 01:23 Reassessment: awaiting for industrial ecology technician. patient aware about the wait time. mg2 02:19 Reassessment: ultrasound \T\ bedside. mg2 Vital Signs: 09/25 20:16 BP 125 / 80; Pulse 89; Resp 18; Temp 98.2(O); Pulse Ox 98% ; Weight 61.69 kg; Height 5 ss ft. 4 in. (162.56 cm); Pain 7/10; 09/26 00:16 BP 121 / 95; Pulse 80; Resp 18; Pulse Ox 100% on R/A; mg2 01:24 BP 122 / 70; Pulse 81; Resp 18; Pulse Ox 100% on R/A; mg2 03:16 BP 121 / 80; Pulse 89; Resp 18; Temp 98; Pulse Ox 100% on R/A; mg2 09/25 20:16 Body Mass Index 23.34 (61.69 kg, 162.56 cm) ED Course: 09/25 20:03 Patient arrived in ED. am2 20:03 Carlos Ji MD is Private Physician. am2 20:21 Triage completed. 20:22 Arm band placed on right wrist. 22:20 Jacinto Jones MD is Attending Physician. [facility] 22:26 Viktor Connolly RN is Primary Nurse. mg2 22:39 Patient has correct armband on for positive identification. Pulse ox on. NIBP on. Door mg2 closed. Warm blanket given. 22:39 Inserted saline lock: 20 gauge in right antecubital area, using aseptic technique. mg2 Blood collected. 23:45 CT Abd/Pelvis - IV Contrast Only In Process Unspecified. EDMS 23:50 Assist provider with pelvic exam: Set up pelvic tray. Performed by Jacinto Jones MD mg2 Patient tolerated well. 02 02:42 US Pelvis Complete In Process Unspecified. EDMS 03:01 Corinna Cooley MD is Referral Physician. [facility] 03:17 IV discontinued, intact, bleeding controlled, No redness/swelling at site. Pressure mg2 dressing applied. Administered Medications: 09/25 22:59 Drug: Zofran (Ondansetron) 4 mg Route: IVP; Site: right antecubital; mg2 09/26 00:17 Follow up: Response: No adverse reaction mg2 09/25 22:59 Drug: morphine 2 mg Route: IVP; Site: right antecubital; mg2 09/26 00:17 Follow up: Response: No adverse reaction mg2 09/25 22:59 Drug: NS 0.9% 1000 ml Route: IV; Rate: 1000 ml; Site: right antecubital; mg2 02 00:16 Follow up: Response: No adverse reaction; IV Status: Completed infusion; IV Intake: mg2 1000ml 00:41 Drug: morphine 2 mg Route: IVP; Site: right antecubital; mg2 01:07 Follow up: Response: No adverse reaction; Marked relief of symptoms mg2 01:07 Drug: TORadol 30 mg Route: IVP; Site: right antecubital; mg2 02:20 Follow up: Response: No adverse reaction; Marked relief of symptoms mg2 Intake: 00:16 IV: 1000ml; Total: 1000ml. mg2 Outcome: 03:01 Discharge ordered by . 7 03:17 Discharged to home ambulatory. mg2 03:17 Condition: stable 03:17 Discharge instructions given to patient, Instructed on discharge instructions, follow up and referral plans. medication usage, Demonstrated understanding of instructions, follow-up care, medications, Prescriptions given X 2. 03:17 Patient left the ED. mg2 Signatures: Dispatcher [employer] EDOH Leigh Ann James RN RN Rochelle Collier am2 Viktor Connolly RN RN mg2 Jacinto Jones MD MD 7
[2020-09-26 03:32] VITALS: BP 125/80; TEMP 98.2; O2SAT 98
--- NOTE | 2020-09-26 08:51 | RAD REPORT ---
EXAM DESCRIPTION: US - Pelvis Complete - 09/26/2020 2:42 am CLINICAL HISTORY: oarian cyst;Vaginal bleeding Pelvic pain. COMPARISON: Abdomen Pelvis W Contrast dated 09/25/2020 FINDINGS: The uterus appears surgically absent. The right ovary appears prominent in size measuring 3.5 x 3.5 cm. Normal arterial blood flow seen to the right ovary. The left ovary measures 1.7 x 1.5 cm. Normal blood flow seen to the left ovary. No significant pelvic ascites. IMPRESSION: No evidence of ovarian torsion identified.
--- NOTE | 2020-09-26 11:14 | RAD REPORT ---
EXAM DESCRIPTION: CT ABDOMEN AND PELVIS WITH CONTRAST CLINICAL HISTORY: Vaginal bleeding;Abd pain COMPARISON: None Available. TECHNIQUE: CT of the abdomen and pelvis performed following IV administration of iodinated contras t.. FINDINGS: Lung Bases: The visualized lung bases are clear. Bones: No destructive bone lesions identified. Abdomen: Liver: The liver has normal size and density. No intrahepatic biliary dilatation. Small hepatic cysts . Gallbladder: Prior cholecystectomy. Spleen, Pancreas, and Adrenal Glands: The spleen, pancreas, and adrenal glands are unremarkable. Kidneys: No hydronephrosis or obstructing calculus. Vasculature: The aorta and IVC have normal caliber and position. The portal vein is patent. The pro ximal visceral and renal arteries are patent. Stomach: The stomach and duodenum have normal course. Other: No free intraperitoneal air. No free fluid or lymphadenopathy. Tiny fat-containing umbilic al hernia. Pelvis: Bladder: Urinary bladder is unremarkable. Bowel: No dilated loops of large or small bowel. Appendix: None identified. Pelvis: 4.3 x 3.3 cm likely hemorrhagic indeterminate right ovarian cyst. Prior hysterectomy. Minimal free fluid in the pelvis.. IMPRESSION: 1. Trace free pelvic fluid may be physiologic. 2. 4.3 cm indeterminate right ovarian cyst. This may represent a hemorrhagic right ovarian cyst. 4.3 cm indeterminate ovarian cyst. Recommend prompt follow-up with pelvic US. Reference: J Am Jeanmarie Radiol 2013;10:675-681 This exam was performed according to our departmental dose-optimization program, which includes autom ated exposure control, adjustment of the mA and/or kV according to patient size and/or use of iterati ve reconstruction technique. Electronically signed by: Didier Lizama 09/26/2020 12:04 AM POSSUM TRAPPER Due to temporary technical issues with the PACS/Fluency reporting system, reports are being signed by the in house radiologist without review as a courtesy to ensure prompt reporting. The interpreting r adiologist is fully responsible for the content of the report.
== END 2020-09-26 03:17 | disposition home or self-care (01) ==
LOC: ER 20:01
DX: N83.209 Unspecified ovarian cyst, unspecified side (principal); Z90.710 Acquired absence of both cervix and uterus; Z88.1 Allergy status to other antibiotic agents; Z88.2 Allergy status to sulfonamides; Z88.5 Allergy status to narcotic agent
CPT/HCPCS: 96361; 85025; 80048; 36415; 86900; 86901; 81003; 74177; 76856; 96375; 96374; 99284; Q9967; J2270 ×2; J7030; J2405

== ENCOUNTER 2020-11-15 11:29 | Day surgery (SDC) | payer BC ==
[2020-11-15 12:14] LABS: Absolute Lymphocytes (CBC) 1.2 K/uL (0.7-4.9); Basophils % 0.5 % (0-1.3); Hematocrit 39.8 % (36.0-45.0); Lymphocytes % 23.5 % (15.3-44.8); MPV 9.1 fL (7.6-11.3); RBC Red Blood Cell Count 4.43 M/uL (3.86-4.86)
[2020-11-15] MEDS ORDERED: SCOPOLAMINE HYDROBROMIDE PATCH TD ONE ×2 (12:15→13:01)
[2020-11-15 12:51] LABS: Urine Appearance CLEAR (Clear); Urine Blood NEGATIVE (Negative); Urine Color YELLOW (Yellow); Urine Glucose NEGATIVE (Negative); Urine Protein NEGATIVE (Negative); Urine Specific Gravity 1.025 (1.005-1.030); Urine Urobilinogen 0.2 mg/dL (0.2-1.0)
[2020-11-15] MEDS ORDERED: Ringers Lactate 1,000 ML IV SCH (13:00)
[2020-11-15] MEDS ORDERED: Ringers Lactate 1,000 ML IV ONE ×2 (13:01→16:10)
[2020-11-15 13:06] LABS: Urine Bilirubin NEGATIVE (Negataive)
[2020-11-15 13:07] LABS: Urine Microscopic Reflex NO UMIC
[2020-11-15] MEDS ORDERED: BUPIVACAINE 0.25% PF 30 ML VIAL ONE (14:15)
[2020-11-15] MEDS ORDERED: FENTANYL CITR 100 MCG/2 ML ONE (14:46)
[2020-11-15] MEDS ORDERED: dexAMETHasone 10 MG/ML VIAL ONE (14:46)
[2020-11-15] MEDS ORDERED: propofoL 200 MG/20 ML VIAL IV ONE (14:46)
[2020-11-15] MEDS ORDERED: MIDAZOLAM HCL 2 MG/2 ML INJ ONE (14:46)
[2020-11-15] MEDS ORDERED: LIDOCAINE 1% MPF 5 ML VIAL ONE ×2 (14:46→15:12)
[2020-11-15] MEDS ORDERED: ONDANSETRON 4 MG/2 ML VIAL ONE (14:47)
[2020-11-15] MEDS ORDERED: ROCURONIUM 50 MG/5 ML VIAL IV ONE ×2 (14:49→16:07)
[2020-11-15] MEDS ORDERED: CEFAZOLIN/SWI 2gm 2 GM/20 ML SYR ONE (15:00)
[2020-11-15] MEDS ORDERED: KETOROLAC 30 MG/ML INJ ONE (15:23)
[2020-11-15] MEDS ORDERED: NEOSTIGMINE 1 MG/ML -5 ML ONE (16:39)
[2020-11-15] MEDS ORDERED: GLYCOPYRROLATE 0.2 MG/ML SYR ONE (16:40)
[2020-11-15] MEDS: MEPERIDINE HCL 25 MG/ML SYR ONE ×2 (17:07→17:13)
[2020-11-15] MEDS: HYDROMORPHONE HCL 1 MG/ML INJ ONE ×3 (17:18→17:23)
[2020-11-15] MEDS ORDERED: PROMETHAZINE INJ 25 MG/ML AMP ONE (17:20)
[2020-11-15] MEDS: HYDROCODONE/APAP 10/325 TAB ONE ×2 (17:30→18:00)
[2020-11-15 18:20] VITALS: TEMP 97; O2SAT 100
[2020-11-15 18:51] VITALS: BP 122/75
--- NOTE | 2020-11-16 12:52 | OP ---
Date of Procedure: 11/15/2020 Surgeon: Corinna Cooley MD Independent Living Advisor: Nara Neri. Preoperative Diagnoses: Left lower quadrant pain, pelvic pain, 6 months post hysterectomy, vaginal b leeding. Postoperative Diagnoses: Left lower quadrant pain, pelvic pain, 6 months post hysterectomy, vaginal bleeding, adhesions of the sigmoid to the left ovary, endometriosis, vaginal cuff granulation tissue. Procedures Performed: Exam under anesthesia, vaginal cuff reinforcement, diagnostic laparoscopy, jeff ateral oophorectomy, endometriosis, fulguration, significant periovarian and bowel adhesions taken do wn from the sigmoid and from the bladder and vaginal cuff, cystoscopy. Anesthesia: General endotracheal. Specimens: Bilateral ovaries. Complications: No complications. Drains: No drains. Condition: The patient's condition is stable. Findings: On entry, the right ovary appeared to be unremarkable. The right lateral wall at the leve l of the uterine artery cauterization seemed to have a bluish dark spot, could be old endometriosis o r just the pedicle with on it. Then, there were adhesions of the sigmoid epiploicae and t he sigmoid to the posterior cul-de-sac, posterior aspect of the vaginal cuff as well as to the anteri or bladder wall. Then on the left side, the sigmoid was completely adhered to the left sidewall, brionna y densely to the ovary, and there was significant endometriosis implant close to the bladder, which w as pulled up to the sidewall and the sigmoid adhesions. The adhesions were completely taken down. T he ovaries were removed completely widely excising all the peritoneum and the endometriosis like impl ants around. The implants close to the lateral wall distal close to the bladder were fulgurated with bipolar cautery. On cystoscopy at the end of the procedure, there was no evidence of any injury. U reters were patent with good jets of urine. Indications: The patient is a 45-year-old lady with significant pelvic pain and abnormal bleeding. She underwent a total laparoscopic hysterectomy, bilateral salpingectomy, and endometriosis excision at [facility] 6 months ago. She had a postoperative period complicated by poor vaginal cuff h ealing due to a very early ambulation. She was treated and probably healed. No dyspareunia. The pa in had gradually gotten better. She has had workups to make sure that there was no pelvic hematoma o r abscess, any ureteric injuries and they were all negative. Even after 6 months, she continues to h ave intermittent episodes of pain. Denies dyspareunia and pain is just spontaneous and this is at ra ndom times and it is severe. She has been to the emergency room and gotten a CT scan, did not show a ny pelvic masses either with slightly enlarged unilateral, one ovary was enlarged. On vaginal cuff e xam, she also has a brownish discharge initially when she presented to the ER with most pain. There was bright red blood according to the patient, but this was not triggered by postcoital time. So, I assumed that this was not a cuff related problem, mostly intraabdominal pain. Her pain is very simil ar to what was preop at this time and so the possibility that her endometriosis probably is incomplet fernando treated and also that her ovulation triggered her pain, may be any endometrial tissue and the vag inal cuff could be leading to her bleeding, so went ahead and consented her. Also wanted to make sigrid e that there was no concealed bone separation or dehiscence that is delayed which should be extremely unusual. The patient was explained about this that vaginal cuff revision would not be done on this as there was a dehiscence noted, then bilateral oophorectomy because of her recurrent pain followed b y postoperative hormone therapy and any endometriosis removal or any needed procedures. Procedure In Detail: She was consented and brought to the OR after discussing with the . All questions were answered in the preop. She was given 2 g of Ancef in anticipation of any vaginal cuf f revision. Then, general anesthesia given with endotracheal tube. Placed in a supine fashion first , then dorsal lithotomy. Abdomen, vulva, vagina, and perineum were prepped and draped in a sterile f ashion. Before the prepping was done, speculum exam was performed and there was a slight amount of b rownish discharge from the right lateral aspect of the vaginal wall. No evidence of any dehiscence after prepping the patient. Then, a Llanos was placed to drain the blad noris. Sponge on a stick was placed in the vagina. This area was draped. A 1 cm infraumbilical incision was made with a scalpel, tagged with 0 Vicryl sutures on the fascia. Peritoneum entered sharply. S-retractors were placed. Jayashree introduced after insufflation. Site o f entry checked and unremarkable. The patient was placed in Trendelenburg. Pelvic cavity was examin ed after placing a 5 suprapubic and left lower quadrant port. There was later right lower quadrant p ort placed for retraction of the bowel. After making sure that the entire pelvic cavity was evaluated and the findings are as dictated above, plan was to take down the sigmoid adhesions first, the adhesions of the epiploicae from the cuff, ri ght side, posterior pelvic wall in the midline. These were all done sharply. Bipolar cautery used a s needed, then onto the left pelvic sidewall. Opened up the space between the ovary and the sidewall adhesions. Once I got into the space, I was able to take down the peritoneum on the top to open up the peritoneum counting the epiploicae. Once this was , then posterior peritoneum was also taken down in the lateral wall lateral to the round ligament was opened up. The remnant of the round ligament was picked up. Dissection was carried in the right and the left pelvic sidewall parallel t o the infundibulopelvic ligament. Once the window was made in the medial leaf of the broad ligament, then the ureter was identified in the medial leaf much more inferior and medial. Once this was done , the peritoneum was taken down to isolate the IP ligament and the bowel adhesions were taken down re tracting the sigmoid colon to the medial aspect and then sharp and by bipolar cautery followed by dis section was performed. The bowel was . This took at least 50% of the procedure. Then, IP was cauterized with the help of the LigaSure and . The ovarian specimen placed in the cul-d e-sac, then opened the broad ligament, continuing up. Taken down all the adhesions, endometriosis po ssible, excised this and sent it with the same specimen. On the opposite side, the peritoneum was op ened lateral to the IP ligament and then the IP ligament was isolated medially. A window was made, t aken down. Then, the ovary was dissected off the sidewall. The specimens were placed in a specimen catch bag and retrieved through the umbilical port. The endometriosis implants were identified. The n, bladder was retrograde filled just to identify the borders of the bladder and this was right on to p of the area above the vaginal cuff. This was cauterized, did not think that it needed excision sin ce she has a bilateral oophorectomy. Then, the implant on the right side was also fulgurated. Thorough irrigation and suction were performed. No evidence of any injury to the ureters, electrical , mechanical or thermal. All the trocars were removed under direct vision. A 0.25% Marcaine injected at the fascia and skin, both at the entry and exit for this patient. The fascia at the umbilicus was closed with 0 Vicryl tied to each other, subcutaneous 0 Vicryl simple stitch, 4-0 Vicryl interrupted sutures to close all the incisions. Cystoscopy was performed. Llanos was removed. Good ureteric jets from both ureteric orifices. No ev idence of any trauma to the bladder. This was performed after the vaginal part was done. Vaginal exam was performed by visual inspection using 2 retractors after visualizing the cuff at the level of the right and of the vault. This was closed with the help of a 2-0 Vicryl suture in a figur e-of-eight fashion including the vaginal epithelium and sub-epithelium probably taking the connective tissue as well to reinforce this end and close any granulation tissue that was exposed after excisin g it with Metzenbaum. Then, reinforcing stitches were placed, 3 other xuxiia-ha-fjqan, 2 in the cent er and 1 on the lateral end just to reinforce as there was no dehiscence which was examined by juany Fisher retractor in the vagina while during the laparoscopic part of the case. Subsequently, cystoscopy was performed. Then, the case was ended after removing the Llanos. Instrume nt, needle, and sponge counts x3 were correct at the end of the case. The patient tolerated the proc edure well. She was recovered from anesthesia in the OR and taken to PACU in stable condition. Her findings were explained to her and she was given a narcotic prescription to go home with and given restrictions. She has a 1-week followup appointment here. EBL was minimal. The patient yoselyn ated the procedure well. CHRISTIANNE/JEFFY Voice ID: [id number] Report ID: [id number]
== END 2020-11-15 18:50 | disposition home or self-care (01) ==
LOC: OR 11:29
PROVIDERS: ATTEND Obstetrics & Gynecology
PROC: 0UT24ZZ Resection of Bilateral Ovaries, Percutaneous Endoscopic Approach (ICD-10-PCS; principal; 2020-11-15 13:30)
DX: R10.2 Pelvic and perineal pain (principal); R10.32 Left lower quadrant pain; N93.9 Abnormal uterine and vaginal bleeding, unspecified; Z20.822 Contact with and (suspected) exposure to COVID-19
CPT/HCPCS: 85025; 36415; 86900; 86850 ×2; 86901; 88305; 81003; 58661; U0003; J2704; J2550; J2250; J3010; J1100; J2175; J1170; J2710; J0690; J7120 ×2; J2405

== ENCOUNTER 2021-02-12 17:48 | Emergency (ER) | payer BC ==
--- OUTSIDE RECORDS SUMMARY | 2021-02-12 17:50 | XMS REPORT | Continuity of Care Document ---
:1975 Author Organization [facility] t Address [address] [place] [address] Care Team Providers Name Role Phone Unavailable Unavailable Unavailable Payers Payer Name Policy Type Policy Number Effective Date Expiration Date S ource Problems This patient has no known problems. Allergies, Adverse Reactions, Alerts Allergy Allergy Status Severity Reaction(s) Onset Inactive Treating Comm ents Source Name Type Date Date Clinician Sulfa DA Active 0 [facility] (Sulfona 9-30 Pearlan mide 00:00: d Antibiot [...] Source SURG 2020-05-11 14:36:00 --------RUN DATE: 05/11/20 [facility] - LAB PAGE 1 RUN TIME: 1436 Specimen Inquiry RUN USER: INTERFACE --------PATIENT: MODESTO STEWART LOC: [facility] U #: [id number] AGE/SX: 44/F ROOM: RE05/05/20REG DR: Corinna Cooley : [birth year] BED: DIS: STATUS: [facility] TLOC: -------- SPEC #: [id number] RECD: 05/06/20 STATUS: BIRGIT REQ #: [id number] NIMCO: 05/05/20 [facility] DR: Corinna Cooley MD ENTERED: 05/06/20 SP TYPE: SURG OTHR DR: Carlos Ji Jr, MD ORDERED: SURG PATH LVL 5 COPIES TO: Carlos Ji Jr, MD [address] [facility] [address] [place] [address] Corinna Cooley MD [address] [facility] [place] [address] [place] [address] HISTOLOGY: TISSUE ID BLK PCS HENOK LEV PROCEDURE DISPOSITION ____ ___ ___ ___ UTERUS, NOS A 1 1 PROCEDURES: SURG PATH LVL 5 (05/06/20) TISSUES: A. UTERUS, NOS - UTERUS, CERVIX AND BILATERAL TUBES CLINICAL HISTORY PAIN - R10.2; ANEMIA - D50.9; EXCESSIVE/FREQUENT MENSES - N92.0 CPT CODES CPT CODE(S): 33941 , , , , , , FINAL DIAGNOSIS Uterus, cervix and bilateral fallopian tubes, hysterectomy and bilateral salpingectomy: CHRONIC CERVICITIS NABOTHIAN CYST ADENOMYOSIS BILATERAL FALLOPIAN TUBES WITH PARATUBAL CYSTS CONTINUED ON NEXT PAGE --------RUN DATE: 05/11/20 [facility] PAGE 2 RUN TIME: 1436 Specimen Inquiry RUN USER: INTERFACE --------SPEC #: [facility]:[id number] PATIENT: MODESTO STEWART #[id number] (Continued) GROSS DESCRIPTION Uterus, cervix and bilateral [...] a patent lumen and is grossly unremarkable. Pediatric Clinical Nurse Specialist sections are submitted. ba/nr Section code: A1 Anterior cervix A2 Posterior cervix A3-A4 Anterior endometrium/myometriu m A5-A6 Posterior endometrium/myometriu m A7 Serosa (posterior cul-de-sac) A8 Fimbria - Longer fallopian tube A9 Cross-sections of Longer fallopian tube paratubal cyst A10 Fimbria - [place] fallopian tube A11 Cross-sections of [place] fallopian tube Grossing performed at [facility], [address] [place] [address], [address], [place] [address]. Documentation Liaison: Alexey Song M.D. MICROSCOPIC DESCRIPTION Uterus, cervix [...] AG (test code = NEGATIVE Negative Per java oracle developer, negative [id number]) results should be treated aspresumptive a nd, [...] a nd symptoms consistent with COVID-19. URINALYSIS [id number] 12:15:00 Test Item Value Reference Range Interpretation [...] LEUU) Urine Specimen Type: Clean CatchUR HCG [id number] 12:15:00 Test Item Value Reference Range Interpretation Comments UR HCG QUAL (test code = HCGQLU) NEGATIVE Urine Specimen Type: Clean CatchURINALYSIS [id number] 12:15:00 Test Item Value Reference Range Interpretation [...] LEUU) Urine Specimen Type: Clean CatchUR HCG [id number] 12:15:00 Test Item Value Reference Range Interpretation Comments UR HCG QUAL (test code = HCGQLU) NEGATIVE NEGATIVE Urine Specimen Type: Clean CatchCBC W/AUTO [id number] 12:11:00 Test Item Value Reference Range Interpretation [...]
[2021-02-12 18:30] LABS: Urine Blood Negative (Negative); Urine Glucose Negative (Negative); Urine Protein Trace (Negative); Urine Specific Gravity 1.025 (1.005-1.030); Urine pH 5.5 (5.0-7.0)
[2021-02-12 18:38] LABS: Absolute Lymphocytes (CBC) 1.4 K/uL (0.7-4.9); Basophils % 0.9 % (0-1.3); Hematocrit 42.9 % (36.0-45.0); Lymphocytes % 42.4 % (15.3-44.8); MPV 9.6 fL (7.6-11.3); RBC Red Blood Cell Count 4.91 M/uL (3.86-4.86)
[2021-02-12 18:50] LABS: Urine Specific Gravity/Preg 1.025 (1.005-1.030)
[2021-02-12] MEDS ORDERED: NA CHLORIDE 0.9% 1,000 ML ONE (18:50)
[2021-02-12 18:52] LABS: Urine Bacteria 20-50 /HPF (<20); Urine Mucus 2+ /HPF (NONE SEEN); Urine RBC <5 /HPF (NONE SEEN)
[2021-02-12 18:55] LABS: ALT/SGPT 29 U/L (12-78); AST/SGOT 21 U/L (15-37); Albumin 4.3 g/dL (3.4-5.0); Alkaline Phosphatase 68 U/L (45-117); BUN Blood Urea Nitrogen 9 mg/dL (7-18); Bicarbonate 20 mmol/L (21-32); Bilirubin Direct < 0.1 mg/dL (0-0.2); Bilirubin Total 0.3 mg/dL (0.2-1.0); Glucose Level 113 mg/dL (74-106); Lipase 179 U/L (73-393); Potassium 3.6 mmol/L (3.5-5.1); Protein, Total 8.1 g/dL (6.4-8.2); Sodium Level 141 mmol/L (136-145)
--- NOTE | 2021-02-12 19:44 | RAD REPORT ---
EXAM DESCRIPTION: CT - Abdomen Pelvis W Contrast - 02/12/2021 7:16 pm CLINICAL HISTORY: Abdominal pain COMPARISON: September 2020 TECHNIQUE: Computed axial tomography of the abdomen pelvis was obtained. 100 cc Isovue-300 was admin istered intravenously. Oral contrast was not requested which limits evaluation of bowel and appendix. All CT scans are performed using dose optimization technique as appropriate and may include automated exposure control or mA/KV adjustment according to patient size. FINDINGS: A subcentimeter hepatic cyst. Cholecystectomy. Spleen, pancreas, adrenal and kidneys appear unremarkable. There is no evidence of diverticulitis. Hysterectomy. Appendix not clearly seen Mild thickening left colon wall IMPRESSION: Apparent mild thickening of the left colonic wall may indicate a mild colitis or be seco ndary to incomplete distention
[2021-02-12 20:38] LABS: Anisocytosis 1+; Blood Morphology Comment NOTED (NOT SEEN); Platelet Estimate ADEQ; Poikilocytosis 1+; White Blood Cell Scan OK (OK)
--- NOTE | 2021-02-12 20:41 | ER ---
Nurse's Notes [facility] Name: Stephanie Espinoza Age: 45 yrs Sex: Female : 1975 Arrival Date: 02/12/2021 Time: 17:53 Bed 20 Private MD: Diagnosis: Colitis Presentation: 02/12 17:55 Chief complaint: Patient states: N/V/Diarrhea since . Low back pain since ca1 . Chills, feeling real sick. In the beginning -of February, my doctor found E-.Coli on my urine. But has not been taking antibiotics. Coronavirus screen: chills, diarrhea, nausea, vomiting. Client presents with at least one sign or symptom that may indicate coronavirus-19. Standard/surgical mask placed on the client. Provider contacted for isolation considerations. Ebola Screen: Patient negative for fever greater than or equal to 101.5 degrees Fahrenheit, and additional compatible Ebola Virus Disease symptoms Patient denies exposure to infectious person. Patient denies travel to an Ebola-affected area in the 21 days before illness onset. No symptoms or risks identified at this time. Initial Sepsis Screen: Does the patient meet any 2 criteria? No. Patient's initial sepsis screen is negative. Does the patient have a suspected source of infection? No. Patient's initial sepsis screen is negative. Risk Assessment: Do you want to hurt yourself or someone else? Patient reports no desire to harm self or others. Onset of symptoms was February 09, 2021. 17:55 Method Of Arrival: Wheelchair ca1 17:55 Acuity: AI 3 ca1 SOFTWARE PRODUCT SPECIALIST: 17:59 LMP N/A - Hysterectomy ca1 Historical: - Allergies: 17:59 Levaquin; ca1 17:59 Sulfa (Sulfonamide Antibiotics); ca1 17:59 tramadol; ca1 - PMHx: 17:59 Hypothyroidism; Migraines; ca1 - Immunization history:: Client reports receiving the 2nd dose of the Covid vaccine, Client reports receiving the 1st dose of the Covid vaccine, Flu vaccine is up to date. - Social history:: Smoking status: Smoking status: Patient denies any tobacco usage or history of. Screenin:09 Abuse screen: Denies threats or abuse. Nutritional screening: No deficits noted. rb3 Tuberculosis screening: No symptoms or risk factors identified. Fall Risk None identified. Assessment: 18:09 General: Appears in no apparent distress. Behavior is calm, cooperative, Reports chills rb3 for . feeling ill for Denies fever. Pain: Complains of pain in left low back Pain currently is 8 out of 10 on a pain scale. Pain began . Neuro: Level of Consciousness is awake, alert, obeys commands, Oriented to person, place, time, situation. Cardiovascular: Patient's skin is warm and dry. Respiratory: Airway is patent Respiratory effort is even, unlabored, Respiratory pattern is regular, symmetrical. GI: Abdomen is flat, Reports diarrhea, nausea, vomiting, since . : Reports urinary frequency, Denies burning with urination. 18:09 Reassessment: Pt is currently taking Macrobid for a UTI. rb3 19:45 Reassessment: Patient and/or family updated on plan of care and expected duration. Pain ak2 level reassessed. Vital Signs: 17:55 Pulse 63; Resp 18 S; Temp 97.4(TE); Pulse Ox 100% ; Weight 58.97 kg (R); Height 5 ft. 4 ca1 in. (162.56 cm) (R); Pain 9/10; 17:55 BP 124 / 85; ca1 19:45 BP 128 / 93; Pulse 61; Resp 16; Pulse Ox 100% on R/A; ak2 21:18 BP 115 / 81; Pulse 66; Resp 18; Pulse Ox 98% on R/A; ak2 17:55 Body Mass Index 22.31 (58.97 kg, 162.56 cm) ca1 ED Course: 17:53 Patient arrived in ED. bp1 17:57 Rani Espinosa, RN is Primary Nurse. rb3 17:59 Triage completed. ca1 17:59 Arm band placed on right wrist. Patient placed in an exam room, on pulse oximetry. ca1 18:01 Tobin Banda NP is PHCP. pm1 18:01 Clint Montana MD is Attending Physician. pm1 18:09 Patient has correct armband on for positive identification. Bed in low position. Call rb3 light in reach. Side rails up X 1. Pulse ox on. NIBP on. Warm blanket given. 18:20 Inserted saline lock: 20 gauge in right antecubital area, using aseptic technique. rb3 ,using aseptic technique. IV inserted by BJORN, therapeutic case manager Blood collected. 18:34 Urine --Ancillary Sent. kj1 18:34 Urine --Ancillary (enter results) Sent. kj1 18:34 Urine Microscopic Only Sent. kj1 19:16 CT Abd/Pelvis - IV Contrast Only In Process Unspecified. EDMS 21:19 IV discontinued. ak2 Administered Medications: 18:30 Drug: NS 0.9% 1000 ml Route: IV; Rate: 1000 ml; Site: right antecubital; rb3 20:40 Drug: Rocephin (cefTRIAXone) 1 grams Route: IV; Rate: calculated rate; Site: right ak2 antecubital; 20:53 Drug: Phenergan (promethazine) 25 mg Route: IVP; Site: right antecubital; ak2 20:53 Drug: Flagyl (metroNIDAZOLE) 500 mg Volume: 100 ml; Route: IVPB; Rate: 200 ml/hr; ak2 Infused Over: 30 mins; Site: right antecubital; 20:53 Drug: Ketorolac 30 mg Route: IVP; Site: right antecubital; ak2 Outcome: 20:41 Discharge ordered by MD. pm1 21:19 Discharged to home ambulatory. ak2 21:19 Condition: good 21:19 Discharge instructions given to patient, family. 21:20 Patient left the ED. ak2 Signatures: Dispatcher [employer] EDMS Tobin Banda, DANCE HALL HOSTESS DANCE HALL HOSTESS pm1 Valorie Marshall RN RN Veena Angeles kj1 Mago Anderson Rebecca, RN RN rb3 Raghav Le ak2
--- NOTE | 2021-02-12 20:41 | EDPHYS ---
Physician Documentation [facility] Name: Stephanie Espinoza Age: 45 yrs Sex: Female : 1975 Arrival Date: 02/12/2021 Time: 17:53 Bed 20 Private MD: ED Physician Clint oMntana HPI: 02/12 18:13 This 45 yrs old Female presents to ER via Wheelchair with complaints of pm1 Vomiting/Diarrhea. 18:13 The patient presents to the emergency department with nausea, vomiting, diarrhea. pm1 18:13 Onset: The symptoms/episode began/occurred 3 day(s) ago. Possible causes: unknown. The pm1 symptoms are aggravated by food , The symptoms are alleviated by nothing. Associated signs and symptoms: Pertinent positives: abdominal pain, chills. Severity of symptoms: in the emergency department the symptoms are worse. The patient has been recently seen by a physician: the patient's primary care provider, diagnosed with UTI. 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 - Social history:: Smoking status: Smoking status: Patient denies any tobacco usage or history of. ROS: 18:13 Eyes: Negative for injury, pain, redness, and discharge, ENT: Negative for injury, pm1 pain, and discharge, Neck: Negative for injury, pain, and swelling, Cardiovascular: Negative for chest pain, palpitations, and edema, Respiratory: Negative for shortness of breath, cough, wheezing, and pleuritic chest pain. 18:13 Back: Negative for injury and pain, : Negative for injury, bleeding, discharge, and swelling, MS/Extremity: Negative for injury and deformity, Skin: Negative for injury, rash, and discoloration, Neuro: Negative for headache, weakness, numbness, tingling, and seizure. 18:13 Constitutional: Positive for chills, Negative for fever. 18:13 Abdomen/GI: Positive for abdominal pain, nausea, vomiting, and diarrhea, Negative for constipation. Exam: 18:13 Constitutional: This is a well developed, well nourished patient who is awake, alert, pm1 and in no acute distress. Head/Face: Normocephalic, atraumatic. 18:13 Skin: Warm, dry with normal turgor. Normal color with no rashes, no lesions, and no evidence of cellulitis. MS/ Extremity: Full, normal range of motion. 18:13 Eyes: Exam is negative for acute changes, Extraocular movements: no acute changes, Conjunctiva: no acute changes, no injection. 18:13 ENT: Exam is negative for acute changes, Mouth: Lips: normal, Oral mucosa: normal, pink and intact, moist. 18:13 Cardiovascular: unable to assess due to patient not wanting to be touched during examination . 18:13 Respiratory: Exam negative for acute changes, respiratory distress, shortness of breath. 18:13 Abdomen/GI: Inspection: abdomen appears normal. 18:13 Neuro: Exam negative for acute changes, Orientation: is normal, Mentation: is normal, Motor: is normal, moves all fours. Vital Signs: 17:55 Pulse 63; Resp 18 S; Temp 97.4(TE); Pulse Ox 100% ; Weight 58.97 kg (R); Height 5 ft. 4 ca1 in. (162.56 cm) (R); Pain 9/10; 17:55 BP 124 / 85; ca1 19:45 BP 128 / 93; Pulse 61; Resp 16; Pulse Ox 100% on R/A; ak2 21:18 BP 115 / 81; Pulse 66; Resp 18; Pulse Ox 98% on R/A; ak2 17:55 Body Mass Index 22.31 (58.97 kg, 162.56 cm) ca1 MDM: 18:08 Patient medically screened. pm1 18:10 ED course: Patient does not want me to perform a physical assessment or any form of pm1 palpation. She also said that she does not want to be admitted to the hospital for any reason. 20:40 Data reviewed: vital signs. Data interpreted: Pulse oximetry: on room air is 100 %. pm1 Interpretation: normal. Counseling: I had a detailed discussion with the patient and/or guardian regarding: the historical points, exam findings, and any diagnostic results supporting the discharge/admit diagnosis, lab results, radiology results, the need for outpatient follow up, to return to the emergency department if symptoms worsen or persist or if there are any questions or concerns that arise at home. 20:40 ED course: Patient does not want to be admitted to the hospital. Expressed that also pm1 when I first examined her. 02/12 18:09 Order name: Urine Microscopic Only; Complete Time: 19:59 pm1 02/12 18:09 Order name: Basic Metabolic Panel; Complete Time: 19:59 pm1 02/12 18:09 Order name: CBC with Diff; Complete Time: 20:39 pm1 02/12 18:09 Order name: Hepatic Function; Complete Time: 19:59 pm1 02/12 18:09 Order name: Lipase; Complete Time: 19:59 pm1 02/12 18:30 Order name: Urine Dipstick-Ancillary; Complete Time: 19:59 EDNJ 02/12 18:09 Order name: CT Abd/Pelvis - IV Contrast Only; Complete Time: 19:59 pm1 02/12 18:31 Order name: Urine --Ancillary (enter results) [facility] 02/12 18:32 Order name: Urine --Ancillary; Complete Time: 19:59 EDNJ 02/12 18:54 Order name: Urine Culture [facility] 02/12 20:38 Order name: CBC Smear Scan; Complete Time: 20:39 EDNJ 02/12 18:09 Order name: Urine Dipstick-Ancillary (obtain specimen); Complete Time: 18:30 pm1 02/12 18:09 Order name: Urine Test (obtain specimen); Complete Time: 18:30 pm1 02/12 18:09 Order name: IV Saline Lock; Complete Time: 18:24 pm1 02/12 18:09 Order name: Labs collected and sent; Complete Time: 18:24 pm1 Administered Medications: 18:30 Drug: NS 0.9% 1000 ml Route: IV; Rate: 1000 ml; Site: right antecubital; rb3 20:40 Drug: Rocephin (cefTRIAXone) 1 grams Route: IV; Rate: calculated rate; Site: right ak2 antecubital; 20:53 Drug: Phenergan (promethazine) 25 mg Route: IVP; Site: right antecubital; ak2 20:53 Drug: Flagyl (metroNIDAZOLE) 500 mg Volume: 100 ml; Route: IVPB; Rate: 200 ml/hr; ak2 Infused Over: 30 mins; Site: right antecubital; 20:53 Drug: Ketorolac 30 mg Route: IVP; Site: right antecubital; ak2 Disposition Summary: 02/12/21 20:41 Discharge Ordered Location: Home pm1 Problem: new pm1 Symptoms: have improved pm1 Condition: Stable pm1 Diagnosis - Colitis pm1 Followup: pm1 - With: Emergency Department - When: As needed - Reason: Worsening of condition Followup: pm1 - With: Private Physician - When: 2 - 3 days - Reason: Recheck today's complaints, Continuance of care, Re-evaluation by your physician Discharge Instructions: - Colitis pm1 - Discharge Summary Sheet rb3 Forms: - SBAR form rb3 - Medication Reconciliation Form pm1 - Thank You Letter pm1 - Antibiotic Education pm1 - Prescription Opioid Use pm1 Prescriptions: - Augmentin 875-125 mg Oral Tablet - take 1 tablet by ORAL route every 12 hours for 10 days; 20 tablet; Refills: 0, pm1 Product Selection Permitted - Flagyl 500 mg Oral Tablet - take 1 tablet by ORAL route every 8 hours for 10 days; 30 tablet; Refills: 0, pm1 Product Selection Permitted - promethazine 25 mg Oral Tablet - take 1 tablet by ORAL route every 6 hours As needed; 20 tablet; Refills: 0, pm1 Product Selection Permitted - dicyclomine 20 mg Oral Tablet - take 1 tablet by ORAL route every 6 hours As needed; 20 tablet; Refills: 0, pm1 Product Selection Permitted Signatures: Dispatcher [employer] Tobin Elizondo NP HEAVY DUTY PRESS OPERATOR pm1 Valorie Marshall RN RN ca1 Rani Espinosa RN RN rb3 Raghav Le2
[2021-02-12] MEDS ORDERED: PROMETHAZINE INJ 25 MG/ML AMP ONE (20:46)
[2021-02-12] MEDS ORDERED: KETOROLAC 30 MG/ML INJ ONE (20:46)
[2021-02-12] MEDS ORDERED: METRONIDAZOLE 500mg IVPB 500 MG/100 ML BAG IV ONE (20:47)
[2021-02-12] MEDS ORDERED: CEFTRIAXONE/SWI 1gm 1 GM/10 ML SYR ONE (20:47)
[2021-02-12 21:45] VITALS: TEMP 97.4
[2021-02-12 21:52] VITALS: BP 115/81; O2SAT 98
== END 2021-02-12 21:20 | disposition home or self-care (01) ==
LOC: ER 17:48
DX: K52.9 Noninfective gastroenteritis and colitis, unspecified (principal); Z88.1 Allergy status to other antibiotic agents; Z88.2 Allergy status to sulfonamides; Z88.5 Allergy status to narcotic agent
CPT/HCPCS: 87088; 85025; 87086; 80048; 36415; 81025; 80076; 83690; 74177; 96375; 96374; 99284; Q9967; J2550; J0696; J7030; 81003; 81015

== ENCOUNTER 2021-10-04 16:42 | Emergency (ER) | payer BC ==
--- OUTSIDE RECORDS SUMMARY | 2021-10-04 16:45 | XMS REPORT | Continuity of Care Document ---
:1975 Author Organization [facility] t Address [address] [place] [address] Care Team Providers Name Role Phone James Cooley Attending Clinician Unavailable Ji, E Admitting Clinician Unavailable Payers Payer Name Policy Type Policy Number Effective Date Expiration Date S ource Problems This patient has no known problems. Allergies, Adverse Reactions, Alerts Allergy Allergy Status Severity Reaction(s) Onset Inactive Treating Comm ents Source Name Type Date Date Clinician Sulfa DA Active SV 2020-0 [facility] ([facility]ulf[facility] 05-04 [place] [facility] 00:[facility]: d [facility] tramadol DA Active SV 2020-0 [facility] 05-04 [place] 00:[facility] d [facility] levoflox DA Active SV 2020-0 [facility] acin 05-04 [facility]: d [facility] Sulfa DA Active SV rash 2019-0 [facility] (Sulfona 05-04 [facility] mide 00:00: d Antibiot 00 [facility] tramadol DA Active SV dont feel 2019-0 [facility] like my self 05-04 [facility] jesus alberto 00:00: d 00 [facility] levoflox DA Active SV rash 2020-0 [facility] acin 05-04 [facility] 00:[facility]: d [facility] Medications This patient has no known medications. Procedures This patient has no known procedures. Encounters Start End Encounter Admission Attending Care Care Encounter Source Date/Time Date/Time Type Type Clinicians Facility Department ID 2020-05-05 Inpatient Lenora KATY DONELL [id number] [facility] 13:30:00 Corinna [place] d [facility] 2020-05-04 Inpatient KATY Addison [id number] [facility] 11:00:00 Corinna [id number] [facility] Results Test Description Test Time Test Comments Results Result Comments Source SURG 2020-05-11 14:36:00 --------RUN DATE: 05/11/20 [facility] PAGE 1 RUN TIME: 1436 Specimen Inquiry RUN USER: INTERFACE --------PATIENT: MODESTO STEWART LOC: ChaunceyYANIQUEU U #: [id number] AGE/SX: 44/F ROOM: RE05/05/20[facility] DR: Corinna Cooley : [birth year] BED: DIS: STATUS: SIMONE MONTALVO TLOC: -------- SPEC #: [id number] RECD: 05/06/20 STATUS: BIRIGT REHi #: [id number] NIMCO: 05/05/[address] [facility] [address]: Corinna Cooley MD ENTERED: 05/06/20 SP TYPE: SURG OTHR DR: Carlos Ji Jr, MD ORDERED: SURG PATH LVL 5 COPIES TO: Carlos Ji Jr, MD [address] [facility] [address] [place] [address] Corinna Cooley MD [address] [facility] [place] [address] [place] [address] HISTOLOGY: TISSUE ID BLK PCS HENOK LEV PROCEDURE DISPOSITION ____ ___ ___ ___ UTERUS, NOS A 1 1 PROCEDURES: SURG PATH LVL 5 (05/06/20) TISSUES: A. UTERUS, NOS - UTERUS, CERVIX AND BILATERAL TUBES CLINICAL HISTORY PAIN - R10.2; ANEMIA - D50.9; EXCESSIVE/FREQUENT MENSES - N92.0 CPT CODES CPT CODE(S): 55913 , , , , , , FINAL DIAGNOSIS Uterus, cervix and bilateral fallopian tubes, hysterectomy and bilateral salpingectomy: CHRONIC CERVICITIS NABOTHIAN CYST ADENOMYOSIS BILATERAL FALLOPIAN TUBES WITH PARATUBAL CYSTS CONTINUED ON NEXT PAGE --------RUN DATE: 05/11/20 [facility] PAGE 2 RUN TIME: 1436 Specimen Inquiry RUN USER: INTERFACE --------SPEC #: [id number] PATIENT: MODESTO STEWART #[id number] (Continued) GROSS DESCRIPTION Uterus, cervix and bilateral [...] a patent lumen and is grossly unremarkable. Injector Assembler sections are submitted. ba/nr Section code: A1 Anterior cervix A2 Posterior cervix A3-A4 Anterior endometrium/myometriu m A5-A6 Posterior endometrium/myometriu m A7 Serosa (posterior cul-de-sac) A8 Fimbria - Longer fallopian tube A9 Cross-sections of Longer fallopian tube paratubal cyst A10 Fimbria - [place] fallopian tube A11 Cross-sections of [place] fallopian tube Grossing performed at [facility], [address] [place] [address] [address], [place], [place] [address]. Fishing Rod Assembler: Alexey Song M.D. MICROSCOPIC DESCRIPTION Uterus, cervix [...] AG (test code = NEGATIVE Negative Per christian science healer, negative [id number]) results should be treated aspresumptive a nd, if inconsistent wi th clinical signs andsymptoms or necessary for patient managem ent, should betested with a n alternative molecular assay . Negative resultsdo not p reclude SARS-CoV-2 infection and s hould not be usedas the sole basis for patient management deci sions. Negative results should be considered in the context of apatient's recent exposures, hist ory, presence of clinicalsigns a nd symptoms consistent with COVID-19. URINALYSIS [id number] 12:15:00 Test Item Value Reference Range Interpretation [...] LEUU) Urine Specimen Type: Clean CatchUR HCG [id number] 12:15:00 Test Item Value Reference Range Interpretation Comments UR HCG QUAL (test code = HCGQLU) NEGATIVE Urine Specimen Type: Clean CatchURINALYSIS [id number] 12:15:00 Test Item Value Reference Range Interpretation [...] LEUU) Urine Specimen Type: Clean CatchUR HCG [id number] 12:15:00 Test Item Value Reference Range Interpretation Comments UR HCG QUAL (test code = HCGQLU) NEGATIVE NEGATIVE Urine Specimen Type: Clean CatchCBC W/AUTO [id number] 12:11:00 Test Item Value Reference Range Interpretation [...]
[2021-10-04] MEDS ORDERED: ONDANSETRON 4 MG/2 ML VIAL ONE (17:34)
[2021-10-04] MEDS ORDERED: LORazepam 2 MG/ML VIAL ONE (17:34)
[2021-10-04] MEDS ORDERED: NA CHLORIDE 0.9% 1,000 ML ONE (17:34)
[2021-10-04] MEDS ORDERED: FAMOTIDINE 20 MG/2 ML VIAL IV ONE (17:35)
[2021-10-04 17:39] LABS: Urine Blood Negative (Negative); Urine Glucose Negative (Negative); Urine Protein Trace (Negative); Urine Specific Gravity >=1.030 (1.005-1.030)
[2021-10-04 17:50] LABS: Absolute Lymphocytes (CBC) 1.2 K/uL (0.7-4.9); Hematocrit 36.5 % (36.0-45.0); Lymphocytes % 18.9 % (15.3-44.8); MPV 8.8 fL (7.6-11.3); RBC Red Blood Cell Count 4.27 M/uL (3.86-4.86)
[2021-10-04 17:53] LABS: Protime INR 1.07
[2021-10-04 18:02] LABS: ALT/SGPT 18 U/L (12-78); AST/SGOT 16 U/L (15-37); Albumin 3.6 g/dL (3.4-5.0); Alkaline Phosphatase 74 U/L (45-117); BUN Blood Urea Nitrogen 7 mg/dL (7-18); Bicarbonate 21 mmol/L (21-32); Bilirubin Direct < 0.1 mg/dL (0-0.2); Bilirubin Total 0.1 mg/dL (0.2-1.0); CKMB Creatine Kinase MB < 1.0 ng/mL (1.0-3.6); Creatine Phosphokinase 62 U/L (26-192); Glucose Level 109 mg/dL (74-106); Lipase 380 U/L (73-393); Magnesium 1.7 mg/dL (1.8-2.4); Potassium 3.7 mmol/L (3.5-5.1); Protein, Total 7.1 g/dL (6.4-8.2); Sodium Level 138 mmol/L (136-145)
[2021-10-04 18:03] LABS: Barbiturates POSITIVE (NEGATIVE); Benzodiazepines NEGATIVE (NEGATIVE); Cocaine NEGATIVE (NEGATIVE); METHAMPHETAM NEGATIVE (NEGATIVE); Methadone NEGATIVE (NEGATIVE); Opiates NEGATIVE (NEGATIVE); Phencyclidine NEGATIVE (NEGATIVE); THC Cannibis NEGATIVE (NEGATIVE)
--- NOTE | 2021-10-04 18:23 | RAD REPORT ---
EXAM DESCRIPTION: CT - CTHCSPWOC - 10/04/2021 6:13 pm CLINICAL HISTORY: Trauma, head and neck injury. PAIN COMPARISON: No comparisons TECHNIQUE: Axial 5 mm thick images of the head were obtained. Axial 2 mm thick images of the cervical spine were obtained with sagittal and coronal reconstruction images generated and reviewed. All CT scans are performed using dose optimization technique as appropriate and may include automated exposure control or mA/KV adjustment according to patient size. FINDINGS: CT HEAD WITHOUT CONTRAST: No acute hemorrhage, hydrocephalus or extra-axial collection is identified.No areas of brain edema or midline shift. Mild sphenoid sinus fluid.The calvarium is intact. Left frontal scalp hematoma measuring 7 mm in thic kness noted. CT CERVICAL SPINE WITHOUT CONTRAST: No fracture or subluxation.Prominent C5-6 spondylosis.No prevertebral soft tissues swelling is identi fied. IMPRESSION: No acute intracranial or cervical spine findings.
[2021-10-04] MEDS ORDERED: KETOROLAC 30 MG/ML INJ ONE (18:31)
[2021-10-04 18:38] LABS: Urine Bacteria 20-50 /HPF (<20); Urine RBC <5 /HPF (NONE SEEN)
[2021-10-04] MEDS ORDERED: MAGNESIUM SULFATE 1 gm IVPB 1 GM/100 ML BAG IV ONE (19:28)
[2021-10-04] MEDS ORDERED: POTASSIUM 25 MEQ EFFERV TAB ONE (19:34)
[2021-10-04] MEDS ORDERED: NA CHLORIDE 0.9% 50 ML ONE (19:34)
[2021-10-04] MEDS ORDERED: CEFTRIAXONE 1000 MG/VIAL ONE (19:34)
[2021-10-04] MEDS ORDERED: FENTANYL CITR 100 MCG/2 ML ONE (20:06)
--- NOTE | 2021-10-04 21:09 | ER ---
Nurse's Notes [facility] Name: Stephanie Espinoza Age: 45 yrs Sex: Female : 1975 Arrival Date: 10/04/2021 Time: 17:01 Bed 23 Private MD: Diagnosis: Other seizures;Hypomagnesemia Presentation: 10/04 17:01 Chief complaint: Spouse and/or significant other states: S.O. states he and pt were ss7 playing with their animals in the back yard and pt has a syncopal episode resulting in hitting her head. He also stated that one of her arms leonel into her body and that patient was also shaking. Pt does not recall any events. Ebola Screen: No symptoms or risks identified at this time. Initial Sepsis Screen: Does the patient meet any 2 criteria? No. Patient's initial sepsis screen is negative. Does the patient have a suspected source of infection? No. Patient's initial sepsis screen is negative. Risk Assessment: Do you want to hurt yourself or someone else? Patient reports no desire to harm self or others. Onset of symptoms was October 04, 2021. 17:01 Method Of Arrival: EMS ss7 17:01 Acuity: AI 2 ss7 21:12 Coronavirus screen: Vaccine status: Patient reports receiving the 2nd dose of the covid sm5 vaccine. Client denies travel out of the [place] in the last 14 days. At this time, the client does not indicate any symptoms associated with coronavirus-19. Triage Assessment: 17:03 General: Appears in no apparent distress. Behavior is anxious. Pain: Complains of pain ss7 in generalized body aches. EENT: No deficits noted. Neuro: Level of Consciousness is awake, alert, obeys commands, Oriented to person, place, time, situation. Cardiovascular: Heart tones S1 S2. Respiratory: Breath sounds are clear bilaterally. GI: No deficits noted. Bowel sounds present X 4 quads. : No deficits noted. Derm: No deficits noted. Derm: No deficits noted. Skin hematoma noted to the left frontal lobe. Musculoskeletal: No deficits noted. 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 - Social history:: Smoking status: Patient denies any tobacco usage or history of. Screenin:10 Abuse screen: Denies threats or abuse. Nutritional screening: No deficits noted. ss7 Tuberculosis screening: No symptoms or risk factors identified. Fall Risk IV access (20 points). Assessment: 18:11 Reassessment: Pt wheeled to Ct via radiology. ss7 21:12 Reassessment: Patient states feeling better. Patient states symptoms have improved. pt 5 departed ed ambulatory with all personal effects, pt with , vss, in nad. Vital Signs: 17:01 BP 151 / 88; Pulse 91; Resp 18; Temp 97.6(O); Pulse Ox 100% ; Weight 63.5 kg; Height 5 ss7 ft. 4 in. (162.56 cm); 18:30 BP 128 / 82; Pulse 69; Resp 18; Pulse Ox 100% on R/A; ss7 20:00 BP 124 / 83; Pulse 61; Resp 18; Pulse Ox 100% on R/A; ss7 21:11 BP 117 / 82; Pulse 69; Resp 18; Pulse Ox 100% on R/A; 5 17:01 Body Mass Index 24.03 (63.50 kg, 162.56 cm) 7 ED Course: 17:01 Patient arrived in ED. ss7 17:01 Darlin Deluna MD is Attending Physician. ma2 17:03 Ryder Albrecht PA is PHCP. cp 17:03 Triage completed. ss7 17:10 Patient has correct armband on for positive identification. Call light in reach. Side 7 rails up X2. Adult w/ patient. potline monitor on. Pulse ox on. NIBP on. 17:10 No provider procedures requiring assistance completed. Inserted Accessed Maintain EMS 7 IV. Dressing intact. Good blood return noted. Gauge \T\ site: 20G right fa. Rigid cervical collar applied and checked by physician. 17:16 Arm band placed on right wrist. EKG completed in triage. Results shown to MD. ss7 17:17 Kate Kline, RN is Primary Nurse. ss7 17:43 Hepatic Function Sent. lr4 17:43 CT Head C Spine Sent. lr4 17:43 Urine Microscopic Only Sent. lr4 17:43 Acetaminophen Sent. lr4 17:44 Creatine Phosphokinase Sent. lr4 17:44 CKMB Creatine Kinase MB Sent. lr4 18:14 CT Head C Spine In Process Unspecified. EDMS 19:15 Urine Culture Sent. lr4 19:18 Basic Metabolic Panel Sent. lr4 19:18 CBC with Diff Sent. lr4 19:18 CPK Sent. lr4 19:18 Ckmb Sent. lr4 21:07 Yuri Bell MD is Referral Physician. cp 21:13 IV discontinued, intact, bleeding controlled, No redness/swelling at site. Pressure sm5 dressing applied. Administered Medications: 17:33 Drug: Zofran (Ondansetron) 4 mg Route: IVP; Site: right forearm; lr4 17:42 Follow up: Response: No adverse reaction; Nausea is decreased lr4 17:35 Drug: Ativan (LORazepam) 0.5 mg Route: IVP; Site: right forearm; lr4 19:15 Follow up: Response: No adverse reaction; Marked relief of symptoms lr4 17:41 Drug: Pepcid (famotidine) 20 mg Route: IVP; Site: right forearm; lr4 17:42 Follow up: Response: No adverse reaction; Nausea is decreased lr4 17:41 Drug: NS 0.9% 1000 ml Route: IV; Rate: 1 bolus; Site: right forearm; lr4 19:15 Follow up: IV Status: Completed infusion lr4 18:31 Drug: Ketorolac 15 mg Route: IVP; Site: right forearm; lr4 19:15 Follow up: Response: Pain is decreased lr4 19:28 Drug: Magnesium Sulfate 1 grams Route: IVPB; Infused Over: 1 hrs; Site: right forearm; lr4 20:00 Follow up: IV Status: Completed infusion ss7 19:37 Drug: Rocephin - (cefTRIAXone) 1 grams Route: IVPB; Infused Over: 30 mins; Site: left sm5 hand; 20:10 Follow up: IV Status: Completed infusion 7 19:38 Drug: Potassium Effervescent Tablet 25 mEq Route: PO; sm5 21:18 Follow up: Response: No adverse reaction ss7 20:09 Drug: fentaNYL (PF) 25 mcg Route: IVP; Site: left hand; sm5 21:18 Follow up: Response: No adverse reaction ss7 Outcome: 21:08 Discharge ordered by . linda 21:12 Condition: stable 5 21:12 Discharge instructions given to patient, family. sm5 21:13 Discharged to home ambulatory. sm5 21:30 Patient left the ED. 5 Signatures: Dispatcher [employer] EDMS Ryder Albrecht PA PA cp Alzahri, Mohammad, MD MD ma2 Davina Rodriguez RN RN sm5 Kate Kline RN RN ss7 Cookie Rene RN RN lr4 Corrections: (The following items were deleted from the chart) 17:10 17:01 Pulse 91bpm; Resp 18bpm; Pulse Ox 100%; 63.5 kg; Height 5 ft. 4 in.; BMI: 24.0; 7 7 17:16 17:16 Home Meds: Unknown migraine med; ss7 ss7
--- NOTE | 2021-10-04 21:09 | EDPHYS ---
Physician Documentation [facility] Name: Stephanie Espinoza Age: 45 yrs Sex: Female : 1975 Arrival Date: 10/04/2021 Time: 17:01 Bed 23 Private MD: ED Physician Darlin Deluna HPI: 10/04 17:15 This 45 yrs old Female presents to ER via EMS with complaints of Syncope. cp 17:15 The patient has experienced syncope, lost consciousness. cp 17:15 Onset: The symptoms/episode began/occurred just prior to arrival. Duration: This was a cp single episode. Context: the episode(s) was witnessed, by family, , occurred at home, while outside in backyard, occurred while the patient was standing. 17:15 Associated injury: Head/face: left spiritism, contusion. Associated signs and symptoms: cp Pertinent positives: lightheadedness, reports patient was "foaming at mouth", extremities appeared contracted, and patient was shaking all over, Pertinent negatives: abdominal pain, chest pain. 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 - Social history:: Smoking status: Patient denies any tobacco usage or history of. ROS: 17:25 Constitutional: Negative for body aches, chills, fever, poor PO intake. cp 17:25 Cardiovascular: Negative for chest pain. 17:25 Eyes: Negative for injury, pain, redness, and discharge. cp 17:25 ENT: Negative for drainage from ear(s), ear pain, sore throat, difficulty swallowing, difficulty handling secretions. 17:25 Respiratory: Negative for cough, shortness of breath, wheezing. 17:25 Abdomen/GI: Negative for abdominal pain, vomiting, diarrhea, constipation, black/tarry stool, rectal bleeding. 17:25 Back: Negative for pain at rest, pain with movement. 17:25 : Negative for urinary symptoms, vaginal bleeding, vaginal discharge. 17:25 Neuro: Positive for headache, seizure activity, syncope, Negative for altered mental status. Exam: 17:30 Constitutional: The patient appears in no acute distress, alert, awake, cp non-diaphoretic, non-toxic, well developed, well nourished. 17:30 Head/face: Noted is contusion, that is superficial, of the left spiritism. cp 17:30 Eyes: Periorbital structures: appear normal, Pupils: equal, round, and reactive to light and accomodation, Extraocular movements: intact throughout, Conjunctiva: normal, no exudate, no injection, Sclera: no appreciated abnormality, Lids and lashes: appear normal, bilaterally. 17:30 ENT: External ear(s): are unremarkable, Ear canal(s): are normal, clear, TM's: dullness, bilaterally, Nose: is normal, Mouth: Lips: moist, Oral mucosa: pink and intact, moist, Posterior pharynx: Airway: no evidence of obstruction, patent, erythema, is not appreciated, exudate, is not appreciated. 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 17:30 Chest/axilla: Inspection: normal, Palpation: is normal, no crepitus, no tenderness. 17:30 Cardiovascular: Rate: normal, Rhythm: regular, Heart sounds: murmur, not appreciated, Edema: is not appreciated, JVD: is not appreciated. 17:30 Respiratory: the patient does not display signs of respiratory distress, Respirations: normal, no use of accessory muscles, no retractions, labored breathing, is not present, Breath sounds: are clear throughout, no decreased breath sounds, no stridor, no wheezing. 17:30 Abdomen/GI: Inspection: abdomen appears normal, Palpation: abdomen is soft and non-tender, in all quadrants. 17:30 Back: pain, is absent, ROM is normal. 17:30 Neuro: Orientation: to person, place \\T\\ time. Mentation: is normal, Motor: moves all fours, strength is normal, Sensation: is normal. 21:05 ECG was reviewed by the Attending Physician. Vital Signs: 17:01 BP 151 / 88; Pulse 91; Resp 18; Temp 97.6(O); Pulse Ox 100% ; Weight 63.5 kg; Height 5 ss7 ft. 4 in. (162.56 cm); 18:30 BP 128 / 82; Pulse 69; Resp 18; Pulse Ox 100% on R/A; ss7 20:00 BP 124 / 83; Pulse 61; Resp 18; Pulse Ox 100% on R/A; ss7 21:11 BP 117 / 82; Pulse 69; Resp 18; Pulse Ox 100% on R/A; sm5 17:01 Body Mass Index 24.03 (63.50 kg, 162.56 cm) ss7 MDM: 17:09 Patient medically screened. cp 18:00 Differential Diagnosis: cardiac arrhythmia, drug effect, emotional response, GI bleed, cp , seizure, vasovagal episode. 21:08 Data reviewed: vital signs, nurses notes, lab test result(s), EKG, radiologic studies, cp CT scan, plain films. 21:08 ED course: VSS. Patient observed in ED and no seizure activity observed. Will discharge cp to home for continued monitoring and recommend f/u with neurology. 10/04 17:06 Order name: Basic Metabolic Panel [facility] 10/04 17:06 Order name: CBC with Diff [facility] 10/04 17:06 Order name: CPK [facility] 10/04 17:06 Order name: Ckmb [facility] 10/04 17:06 Order name: Hepatic Function [facility] 10/04 17:06 Order name: Lipase; Complete Time: 18:24 [facility] 10/04 17:06 Order name: Magnesium; Complete Time: 18:24 [facility] 10/04 19:19 Interpretation: Abnormal: MG 1.7. cp 10/04 17:06 Order name: Protime (+inr); Complete Time: 18:24 [facility] 10/04 17:06 Order name: Ptt, Activated; Complete Time: 18:24 [facility] 10/04 17:06 Order name: UDS; Complete Time: 18:24 [facility] 10/04 19:20 Interpretation: Reviewed, Reviewed. cp 10/04 17:06 Order name: Basic Metabolic Panel; Complete Time: 18:24 EDMS 10/04 19:20 Interpretation: Normal except: CL 110; GLUC 109; GFR 89. cp 10/04 17:06 Order name: CBC with Automated Diff; Complete Time: 18:24 EDMS 10/04 17:06 Order name: Creatine Phosphokinase; Complete Time: 18:24 EDMS 10/04 17:06 Order name: CKMB Creatine Kinase MB; Complete Time: 18:24 EDMS 10/04 17:06 Order name: CT Head C Spine; Complete Time: 18:24 sd2 10/04 18:25 Interpretation: Reviewed report. cp 10/04 17:06 Order name: EKG; Complete Time: 17:07 ma2 10/04 17:06 Order name: Liver (Hepatic) Function; Complete Time: 18:24 EDMS 10/04 19:20 Interpretation: Normal except: BILIT 0.1; A/G 1.0. cp / 17:10 Order name: Acetaminophen; Complete Time: 19:19 cp 10/04 19:19 Interpretation: Reviewed. cp 10/04 17:10 Order name: Urine Microscopic Only; Complete Time: 19:19 cp 10/04 19:19 Interpretation: Normal except: UWBC 5-10; UBACT 20-50; SQEPI 5-10. cp 10/04 17:39 Order name: Urine Dipstick-Ancillary; Complete Time: 18:24 EDMS 10/04 18:39 Order name: Urine Culture [facility] 10/04 17:06 Order name: Cardiac monitoring; Complete Time: 17:43 ma2 10/04 17:06 Order name: EKG - Nurse/Tech; Complete Time: 17:17 ma2 10/04 17:06 Order name: IV Saline Lock; Complete Time: 17:17 ma2 10/04 17:06 Order name: Labs collected and sent; Complete Time: 17:17 ma2 10/04 17:06 Order name: NPO; Complete Time: 17:17 ma2 10/04 17:06 Order name: O2 Per Protocol; Complete Time: 17:17 ma2 / 17:06 Order name: O2 Sat Monitoring; Complete Time: 17:43 ma2 / 17:06 Order name: Urine Dipstick-Ancillary (obtain specimen); Complete Time: 17:17 ma2 10/04 17:10 Order name: Urine Test (obtain specimen); Complete Time: 17:43 cp EC:05 Rate is 57 beats/min. Rhythm is regular. AR interval is normal. QRS interval is normal. cp QT interval is normal. T waves are Inverted in lead aVR. Interpreted by me. Reviewed by me. Administered Medications: 17:33 Drug: Zofran (Ondansetron) 4 mg Route: IVP; Site: right forearm; lr4 17:42 Follow up: Response: No adverse reaction; Nausea is decreased lr4 17:35 Drug: Ativan (LORazepam) 0.5 mg Route: IVP; Site: right forearm; lr4 19:15 Follow up: Response: No adverse reaction; Marked relief of symptoms lr4 17:41 Drug: Pepcid (famotidine) 20 mg Route: IVP; Site: right forearm; lr4 17:42 Follow up: Response: No adverse reaction; Nausea is decreased lr4 17:41 Drug: NS 0.9% 1000 ml Route: IV; Rate: 1 bolus; Site: right forearm; lr4 19:15 Follow up: IV Status: Completed infusion lr4 18:31 Drug: Ketorolac 15 mg Route: IVP; Site: right forearm; lr4 19:15 Follow up: Response: Pain is decreased lr4 19:28 Drug: Magnesium Sulfate 1 grams Route: IVPB; Infused Over: 1 hrs; Site: right forearm; lr4 20:00 Follow up: IV Status: Completed infusion ss7 19:37 Drug: Rocephin - (cefTRIAXone) 1 grams Route: IVPB; Infused Over: 30 mins; Site: left sm5 hand; 20:10 Follow up: IV Status: Completed infusion ss7 19:38 Drug: Potassium Effervescent Tablet 25 mEq Route: PO; sm5 21:18 Follow up: Response: No adverse reaction ss7 20:09 Drug: fentaNYL (PF) 25 mcg Route: IVP; Site: left hand; sm5 21:18 Follow up: Response: No adverse reaction ss7 Disposition Summary: 10/04/21 21:08 Discharge Ordered Location: Home cp Problem: new cp Symptoms: have improved cp Condition: Stable cp Diagnosis - Other seizures cp - Hypomagnesemia cp Followup: cp - With: Yuri Bell MD - When: 2 - 3 days - Reason: Recheck today's complaints Discharge Instructions: - Discharge Summary Sheet cp - Hypomagnesemia cp - Seizure, Adult cp Forms: - Medication Reconciliation Form cp - Thank You Letter cp - Antibiotic Education cp - Prescription Opioid Use cp Signatures: Dispatcher [employer] EDMS Ryder Albrecht PA PA cp Alzahri, Mohammad, MD MD ma2 Davina Rodriguez RN RN sm5 Kate Kline RN RN ss7 Cookie Rene RN RN lr4 Corrections: (The following items were deleted from the chart) 17:16 17:16 Home Meds: Unknown migraine med; ss7 ss7
[2021-10-04 21:52] VITALS: TEMP 97.6; O2SAT 100
[2021-10-04 21:56] VITALS: BP 117/82
== END 2021-10-04 21:30 | disposition home or self-care (01) ==
LOC: ER 16:42
DX: G40.89 Other seizures (principal); E83.42 Hypomagnesemia; E03.9 Hypothyroidism, unspecified; Z88.1 Allergy status to other antibiotic agents; Z88.2 Allergy status to sulfonamides; Z88.5 Allergy status to narcotic agent
CPT/HCPCS: 93005 ×2; 87088; 85025; 87086; 80048; 36415; 83735; 82550; 80329; 85610; 80076; 85730; 82553; 83690; 80307; 70450; 72125; 99285; J3010; J3475; J7030; J2405; 81003; 81015

== ENCOUNTER 2022-02-01 10:25 | Emergency (ER) | payer BC ==
[2022-02-01] MEDS ORDERED: ONDANSETRON 4 MG/2 ML VIAL ONE (12:57)
[2022-02-01] MEDS ORDERED: DICYCLOMINE HCL 20 MG/2 ML AMP IM ONE (12:57)
[2022-02-01] MEDS ORDERED: NA CHLORIDE 0.9% 1,000 ML ONE (12:58)
[2022-02-01 13:17] LABS: Absolute Lymphocytes (CBC) 1.6 K/uL (0.7-4.9); Hematocrit 44.8 % (36.0-45.0); Lymphocytes % 34.5 % (15.3-44.8); MCV 92.6 fL (80-100); MPV 8.8 fL (7.6-11.3); RBC Red Blood Cell Count 4.84 M/uL (3.86-4.86)
--- NOTE | 2022-02-01 13:40 | RAD REPORT ---
EXAM DESCRIPTION: RAD - Abdomen W Erect - 02/01/2022 1:32 pm CLINICAL HISTORY: CONSTIPATION Pain COMPARISON: No comparisons FINDINGS: The bowel gas pattern is non-obstructive. No evidence of free air or pneumatosis. No suspi cious calcifications. No significant bony findings. Cholecystectomy. There is a large amount of retained stool in the colon. IMPRESSION: Advanced constipation.
[2022-02-01 14:21] LABS: Bilirubin Total 0.3 mg/dL (0.2-1.0); Protein, Total 7.9 g/dL (6.4-8.2)
[2022-02-01 14:35] LABS: Urine Bacteria <20 /HPF (<20); Urine Mucus 1+ /HPF (NONE SEEN); Urine RBC <5 /HPF (NONE SEEN)
--- NOTE | 2022-02-01 15:02 | ER ---
Nurse's Notes [facility] Name: Stephanie Espinoza Age: 46 yrs Sex: Female : 1975 Arrival Date: 02/01/2022 Time: 10:29 Bed 17 Private MD: Diagnosis: Constipation, unspecified;Abnormal results of liver function studies Presentation: 02/01 10:52 Chief complaint: Patient states: she hasn't had a bowel movement in approx one week. ap3 patient reports being evaluated at [place] a few days for the same thing but has yet to have a BM. Patient states she has tried Miralax, Milk of Mag and an enema to which none produced a BM. Patient also complains of abdominal pain due to being constipated. Coronavirus screen: At this time, the client does not indicate any symptoms associated with coronavirus-19. Ebola Screen: No symptoms or risks identified at this time. Initial Sepsis Screen: Does the patient meet any 2 criteria? No. Patient's initial sepsis screen is negative. Does the patient have a suspected source of infection? No. Patient's initial sepsis screen is negative. Risk Assessment: Do you want to hurt yourself or someone else? Patient reports no desire to harm self or others. Onset of symptoms was January 25, 2022. 10:52 Method Of Arrival: Ambulatory ap3 10:52 Acuity: AI 3 ap3 Triage Assessment: 10:54 General: Appears uncomfortable, Behavior is calm, cooperative, appropriate for age. ap3 Pain: Complains of pain in abdomen. Neuro: Level of Consciousness is awake, alert, obeys commands, Oriented to person, place, time, situation, Speech is normal. Cardiovascular: Patient's skin is warm and dry. Respiratory: Airway is patent Respiratory effort is even, unlabored. GI: Reports lower abdominal pain, upper abdominal pain, constipation. 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 - Social history:: Smoking status: Patient denies any tobacco usage or history of. Screenin:55 Abuse screen: Denies threats or abuse. Nutritional screening: No deficits noted. ap3 Tuberculosis screening: No symptoms or risk factors identified. Fall Risk None identified. Assessment: 11:44 General: Appears uncomfortable, Behavior is calm, cooperative. Pain: Complains of pain krishnamurthy in abdomen. GI: Bowel sounds present X 4 quads. Abdomen is tender to palpation in suprapubic area, right lower quadrant and left lower quadrant Reports constipation, Pain is 7 out of 10 on a pain scale. Vital Signs: 10:52 BP 124 / 63; Pulse 67; Resp 18; Temp 98.9; Pulse Ox 100% ; Weight 56.7 kg; Height 5 ft. ap3 4 in. (162.56 cm); Pain 10/10; 10:52 Body Mass Index 21.46 (56.70 kg, 162.56 cm) ap3 ED Course: 10:29 Patient arrived in ED. ja2 10:54 Triage completed. ap3 10:56 Arm band placed on left wrist. ap3 11:42 Jackie Chandra, RN is Primary Nurse. krishnamurthy 11:44 Patient has correct armband on for positive identification. Bed in low position. krishnamurthy 11:44 No provider procedures requiring assistance completed. krishnamurthy 11:45 Ryder Albrecht PA is PHCP. cp 11:45 Ryder Harding MD is Attending Physician. cp 13:34 XRAY Abdomen With Erect In Process Unspecified. EDMS 16:00 IV discontinued, intact, bleeding controlled, No redness/swelling at site. Pressure iw dressing applied. Administered Medications: 13:02 Drug: NS 0.9% 1000 ml Route: IV; Rate: 1 bolus; Site: right antecubital; krishnamurthy 13:02 Drug: Zofran (Ondansetron) 4 mg Route: IVP; Site: right antecubital; krishnamurthy 13:02 Drug: Dicyclomine 20 mg Route: IM; Site: right gluteus; krishnamurthy 13:02 Follow up: Response: No adverse reaction krishnamurthy Medication: 11:44 VIS not applicable for this client. krishnamurthy Outcome: 15:01 Discharge ordered by . cp 16:00 Discharged to home ambulatory. iw 16:00 Condition: good 16:00 Discharge instructions given to patient, Instructed on discharge instructions, follow up and referral plans. medication usage, Demonstrated understanding of instructions, follow-up care, medications, Prescriptions given X 1. 16:01 Patient left the ED. iw Signatures: Dispatcher [employer] Marla Gallo RN RN Ryder Michel PA PA cp Prokisch, Amanda, RN RN ap3 Shanta Montana Heather, RN RN krishnamurthy
--- NOTE | 2022-02-01 15:02 | EDPHYS ---
Physician Documentation [facility] Name: Stephanie Espinoza Age: 46 yrs Sex: Female : 1975 Arrival Date: 02/01/2022 Time: 10:29 Bed 17 Private MD: KANG Physician Ryder Harding HPI: 02/01 12:00 This 46 yrs old Female presents to ER via Ambulatory with complaints of Constipation, cp Abdominal Pain. 12:00 The patient presents with abdominal pain mid abdomen. cp 12:00 Onset: The symptoms/episode began/occurred gradually. Associated signs and symptoms: cp Pertinent positives: constipation, nausea, last bowel movement 1 week ago, Pertinent negatives: blood in stools, chest pain, diarrhea, fever, shortness of breath, vomiting. The symptoms are described as constant. Modifying factors: the symptoms are aggravated by movement. Severity of pain: in the emergency department the pain is unchanged despite home interventions. 12:00 Patient reports she is passing gas. Has tried enema and OTC Miralax. Went to [place] this past Saturday where she was evaluated and had CT abdomen done that was negative for obstruction. [employer]: 10:55 LMP N/A - Hysterectomy ap3 Historical: - Allergies: 10:54 Levaquin; ap3 10:54 Sulfa (Sulfonamide Antibiotics); ap3 10:54 tramadol; ap3 - PMHx: 10:54 Hypothyroidism; Migraines; ap3 - PSHx: 10:54 hysterectomy; ap3 - Immunization history:: Client reports receiving the 2nd dose of the Covid vaccine. - Social history:: Smoking status: Patient denies any tobacco usage or history of. ROS: 12:05 Constitutional: Negative for body aches, chills, fever, poor PO intake. cp 12:05 Eyes: Negative for injury, pain, redness, and discharge. cp 12:05 ENT: Negative for drainage from ear(s), ear pain, sore throat, difficulty swallowing, difficulty handling secretions. 12:05 Cardiovascular: Negative for chest pain, edema, palpitations. 12:05 Respiratory: Negative for cough, shortness of breath, wheezing. 12:05 Abdomen/GI: Positive for abdominal pain, nausea, constipation, Negative for vomiting, abdominal distension, anorexia, black/tarry stool, rectal bleeding. 12:05 Back: Negative for radiated pain. 12:05 Neuro: Negative for altered mental status, dizziness, headache, weakness. 12:05 All other systems are negative. Exam: 12:10 Constitutional: The patient appears in no acute distress, alert, awake, non-toxic, well cp developed, well nourished, uncomfortable. 12:10 Head/Face: Normocephalic, atraumatic. cp 12:10 Eyes: Periorbital structures: appear normal, Conjunctiva: normal, no exudate, no injection, Sclera: no appreciated abnormality, Lids and lashes: appear normal, bilaterally. 12:10 ENT: External ear(s): are unremarkable, Nose: is normal, Mouth: Lips: moist, Oral mucosa: moist, Posterior pharynx: Airway: no evidence of obstruction, patent. 12:10 Neck: ROM/movement: is normal, is supple, without pain, no range of motions limitations. 12:10 Chest/axilla: Inspection: normal. 12:10 Cardiovascular: Rate: normal, Rhythm: regular. 12:10 Respiratory: the patient does not display signs of respiratory distress, Respirations: normal, no use of accessory muscles, no retractions, labored breathing, is not present, Breath sounds: are clear throughout, no decreased breath sounds, no stridor, no wheezing. 12:10 Abdomen/GI: Inspection: abdomen appears normal, Bowel sounds: active, all quadrants, Palpation: soft, in all quadrants, moderate abdominal tenderness, in the mid abdomen, rebound tenderness, is not appreciated, involuntary guarding, is not appreciated. 12:10 Back: pain, is absent, ROM is normal. 12:10 Neuro: Orientation: to person, place \T\ time. Mentation: is normal. Vital Signs: 10:52 BP 124 / 63; Pulse 67; Resp 18; Temp 98.9; Pulse Ox 100% ; Weight 56.7 kg; Height 5 ft. ap3 4 in. (162.56 cm); Pain 10/10; 10:52 Body Mass Index 21.46 (56.70 kg, 162.56 cm) ap3 MDM: 11:47 Patient medically screened. cp 12:00 Differential diagnosis: appendicitis, bowel obstruction, gastritis, non-specific abd cp pain, pancreatitis, Pyelonephritis, Ureterolithiasis, urinary tract infection, choledocholithiasis. 15:00 Data reviewed: vital signs, nurses notes, lab test result(s), radiologic studies, plain cp films. 15:00 Test interpretation: by ED physician or midlevel provider: plain radiologic studies. cp Counseling: I had a detailed discussion with the patient and/or guardian regarding: the historical points, exam findings, and any diagnostic results supporting the discharge/admit diagnosis, lab results, radiology results, the need for outpatient follow up, a family practitioner, to return to the emergency department if symptoms worsen or persist or if there are any questions or concerns that arise at home. Response to treatment: the patient's symptoms have mildly improved after treatment, and as a result, I will discharge patient. ED course: VSS. Xrays abdomen negative for obstruction. Discussed elevated liver enzymes and need for f/u. Patient with cholecystectomy in past and no RUQ tenderness on exam. Patient instructed to avoid tylenol and alcohol. 02/01 11:57 Order name: CBC with Diff; Complete Time: 14:34 cp 02/01 11:57 Order name: CMP; Complete Time: 14:34 cp 02/01 11:57 Order name: Lipase; Complete Time: 14:34 cp 02/01 11:57 Order name: Urine Microscopic Only; Complete Time: 14:40 cp 02/01 12:55 Order name: XRAY Abdomen With Erect; Complete Time: 14:34 cp 02/01 11:57 Order name: IV Saline Lock; Complete Time: 13:02 cp 02/01 11:57 Order name: Labs collected and sent; Complete Time: 13:02 cp 02/01 11:57 Order name: Urine Dipstick-Ancillary (obtain specimen); Complete Time: 14:26 cp Administered Medications: 13:02 Drug: NS 0.9% 1000 ml Route: IV; Rate: 1 bolus; Site: right antecubital; krishnamurthy 13:02 Drug: Zofran (Ondansetron) 4 mg Route: IVP; Site: right antecubital; krishnamurthy 13:02 Drug: Dicyclomine 20 mg Route: IM; Site: right gluteus; krishnamurthy 13:02 Follow up: Response: No adverse reaction krishnamurthy Disposition Summary: 02/01/22 15:01 Discharge Ordered Location: Home cp Problem: new cp Symptoms: have improved cp Condition: Stable cp Diagnosis - Constipation, unspecified cp - Abnormal results of liver function studies cp Followup: cp - With: Private Physician - When: 2 - 3 days - Reason: Recheck today's complaints Discharge Instructions: - Discharge Summary Sheet cp - Constipation, Adult cp - High-Fiber Diet cp - Liver Function Tests cp Forms: - Medication Reconciliation Form cp - Thank You Letter cp - Antibiotic Education cp - Prescription Opioid Use cp Prescriptions: - Golytely - take 1 unit by ORAL route as directed; 1 bottle; Refills: 0, Product Selection cp Permitted Signatures: Dispatcher [employer] EDMS Ryder Albrecht PA PA cp Rochelle Cordova RN RN ap3 Jackie Chandra RN RN krishnamurthy Corrections: (The following items were deleted from the chart) 14:26 11:57 Urine Test ordered. cp iw 14:54 14:35 Abdomen Limited+US.RAD.BRZ ordered. EDNE EDMS
[2022-02-01 16:19] VITALS: BP 124/63; TEMP 98.9; O2SAT 100
== END 2022-02-01 16:01 | disposition home or self-care (01) ==
LOC: ER 10:25
DX: K59.00 Constipation, unspecified (principal); R94.5 Abnormal results of liver function studies; Z88.1 Allergy status to other antibiotic agents; Z88.2 Allergy status to sulfonamides; Z88.5 Allergy status to narcotic agent
CPT/HCPCS: 85025; 36415; 81015; 83690; 80053; 74019; 96372; 96374; 99283; J0500; J7030; J2405

== ENCOUNTER 2024-06-25 13:26 | Emergency (ER) | payer BC ==
--- OUTSIDE RECORDS SUMMARY | 2024-06-25 13:30 | XMS REPORT | Continuity of Care Document ---
Author Name Unknown Address [address] [facility] [address] [place] [address] [facility] Address [address] [facility] [address] [place] [address] Care Team Providers Care Thermodynamics Professor Name Role Phone PCP, PATIENT DOES NOT HAVE A Primary Care Physic chanda Unavailable Corinna Cooley Attending Clinician Un available GC_GCBZW_Lenora_S Attending Clinician SCOOTER Morris Attending Clinician Unavail able SCOOTER BUCKLEY Attending Clinician Unavail Scooter Oconnor MD Attending Clinician [facility] Eeg Attending Clinician Unavailable Doctor Unassigned, [place] Attending Clinician U Carlos Jenkins Admitting Clinician Unavailable GC_GCBZW_Maggya_S Admitting Clinician SCOOTER Morris Admitting Clinician Unavail able Payers Payer Name Policy Type Policy Number Effective Date Expirati on Date Source [place] [facility] ([facility] [id number] 2020 00:00:00 2023 00:00:00 [id number] 2020 00:00:00 Problems Condition Name Condition Details Condition Category Status Onset Date Resolution Date Last Treatment Date Treating Clinician Comments Source No known active problems No known active problems Disease [facility] Allergies, Adverse Reactions, Alerts Allergy Name Allergy Type Status Severity Reaction(s) Onset Date Inactive Date Treating Clinician Comments Source Sulfa (Sulfona mide Antibiot ics) DA Active SV 05-04 00:00: 00 [facility] tramadol DA Active SV 05-04 00:00: 00 [facility] levoflox acin DA Active SV 05-04 00:00: 00 [facility] Sulfa (Sulfona mide Antibiot ics) DA Active SV rash 05-04 00:00: 00 [facility] tramadol DA Active SV dont feel like my self 05-04 00:00: 00 [facility] levoflox acin DA Active SV rash 05-04 00:00: 00 [facility] LEVOFLOX ACIN DRUG INGREDI Active Unknown-Cmnt 02-04 00:00: 00 [facility] SULFA (SULFONA MIDE ANTIBIOT ICS) Drug Class Active Unknown-Cmnt 02-04 00:00: 00 [facility] Levoflox acin Propensi ty to adverse reaction s Active Unknown - See comments 02-04 00:00: 00 [facility] Sulfa (Sulfona mide Antibiot ics) Propensi ty to adverse reaction s Active Unknown - See comments 02-04 00:00: 00 [facility] Social History Social Habit Start Date Stop Date Quantity Comments Source Exposure to SARS-CoV-2 (event) Not sure [facility] Sex Assigned At 1975 00:00:00 1975 00:00:00 [facility] Smoking Status Start Date Stop Date Source Unknown if ever smoked [facility] Medications Ordered Medication Name Filled Medication Name Start Date Stop Date Current Medication? Ordering Clinician Indication Dosage Frequency Signature (SIG) Comments Components Source proMETHazin e 25 mg tablet 10-03 00:00: 00 Yes TAKE 1-2 TABLETS BY MOUTH EVERY 6 HOURS NEEDED FOR NAUSEA AND VOMITING [facility] ondansetron 8 mg disintegrat ing tablet 10-03 00:00: 00 Yes TAKE 1 TABLET BY MOUTH EVERY 8 HOURS NEEDED FOR NAUSEA AND VOMITING [facility] butalbital- acetaminoph en-caff 50-325-40 mg tablet -24 00:00: 00 Yes TAKE 1 TABLET BY MOUTH TWICE DAILY NEEDED [facility] lisinopriL 5 mg tablet 09-21 00:00: 00 Yes 5mg Take 5 mg by mouth daily. [facility] levothyroxi ne 100 mcg tablet 09-21 00:00: 00 Yes TAKE 1 TABLET BY MOUTH EVERY MORNING ON AN EMPTY STOMACH [facility] gabapentin 600 mg tablet 09-21 00:00: 00 Yes 600mg Take 600 mg by mouth 2 (two) times daily. [facility] DULoxetine 30 mg capsule 09-21 00:00: 00 Yes 30mg Take 30 mg by mouth daily. [facility] fluconazole 150 mg tablet 09-08 00:00: 00 Yes [facility] amoxicillin -clavulanat e 875-125 mg per tablet 08-31 00:00: 00 Yes [facility] estradioL 1 mg tablet 1- 00:00: 00 Yes [facility] cyclobenzap rine 5 mg tablet 08-16 00:00: 00 Yes [facility] methylPREDN ISolone 4 mg tablets 2020-08- 00:00: 00 Yes [facility] cyclobenzap rine 10 mg tablet 2020-08 00:00: 00 Yes TAKE ONE TABLET BY MOUTH EVERY 12 HOURS NEEDED FOR MUSCLE SPAMS [facility] No known medications 02-04 21:46: 47 No [facility] Procedures Procedure Date / Time Performed Performing Clinicia n Source ASSIGNMENT OF BENEFITS 2021-10-06 14:17:55 Docto r Unassigned, [place] [facility] Encounters Start Date/Time End Date/Time Encounter Type Admission Type Attending Clinicians Care Facility Care Department Encounter ID Source 2020-05-04 11:00:00 Inpatient Corinna Addison [facility] [id number] [facility] 2023-07-24 00:00:00 2023-07-24 00:00:00 Outpatient GC_GCBZW_Ka diyala_S PRIV PRIV [id number] [facility] 2023-05-02 00:00:00 2023-05-02 00:00:00 Outpatient GC_GCBZW_Ka diyala_S PRIV PRIV [id number] [facility] 2023-03-07 00:00:00 2023-03-07 00:00:00 Outpatient GC_GCBZW_Ka diyala_S PRIV PRIV [id number] [facility] 2021-10-17 10:38:56 2021-10-17 23:59:00 Outpatient SCOOTER [facility]ER [facility] [id number] [facility] 2021-10-17 10:38:56 2021-10-17 23:59:00 Hospital Scooter [facility] [place] 1..840.114 [id number] [facility] 2021-10-09 00:00:00 2021-10-09 00:00:00 Telephone Scooter Buck[facility] 1..840.114 [id number] [facility] 2021-10-06 08:40:00 2021-10-06 11:07:18 Outpatient SCOOTER WEINER [facility] [id number] [facility] 2021-10-06 00:00:00 2021-10-06 00:00:00 Orders Only Doctor Unassigned, [place] [facility] 1..840.114 [id number] [facility] Results Test Description Test Time Test Comments Results Result Co mments Source SURG 2020-05-11 14:36:00 --------RUN DATE: 05/11/20 [facility] PAGE 1 RUN TIME: 1436 Specimen Inquiry RUN USER: INTERFACE --------PATIENT: MODESTO STEWART LOC: SINA U #: [id number] AGE/SX: 44/F ROOM: RE05/05/20REG DR: Corinna Cooley : 77 BED: DIS: STATUS: [facility] TLOC: -------- SPEC #: [id number] RECD: 05/06/20 STATUS: BIRGIT REQ #: [id number] NIMCO: 05/05/[address]: Corinna Cooley MD ENTERED: 05/06/20 SP TYPE: SURG OTHR DR: Carlos Ji Jr, MD ORDERED: SURG PATH LVL 5 COPIES TO: Carlos Ji Jr, MD [address] [place] [address] [address] [facility] [id number] Corinna Cooley MD [address] [place] [id number] HISTOLOGY: TISSUE ID BLK PCS HENOK LEV PROCEDURE DISPOSITION ____ ___ ___ ___ UTERUS, NOS A 1 1 PROCEDURES: SURG PATH LVL 5 (05/06/20-104) TISSUES: A. UTERUS, NOS - UTERUS, CERVIX AND BILATERAL TUBES CLINICAL HISTORY PAIN - R10.2; ANEMIA - D50.9; EXCESSIVE/FREQUENT MENSES - N92.0 CPT CODES CPT CODE(S): 17977 , , , , , , FINAL DIAGNOSIS Uterus, cervix and bilateral fallopian tubes, hysterectomy and bilateral salpingectomy: CHRONIC CERVICITIS NABOTHIAN CYST ADENOMYOSIS BILATERAL FALLOPIAN TUBES WITH PARATUBAL CYSTS CONTINUED ON NEXT PAGE --------RUN DATE: 05/11/20 [facility] RUN TIME: 1436 Specimen Inquiry RUN USER: INTERFACE --------SPEC #: [facility]:[id number] PATIENT: MODESTO STEWART #[id number] (Continued) GROSS DESCRIPTION Uterus, cervix and bilateral [...] a patent lumen and is grossly unremarkable. Senior Data Scientist sections are submitted. ba/nr Section code: A1 Anterior cervix A2 Posterior cervix A3-A4 Anterior endometrium/myometriu m A5-A6 Posterior endometrium/myometriu m A7 Serosa (posterior cul-de-sac) A8 Fimbria - Longer fallopian tube A9 Cross-sections of Longer fallopian tube paratubal cyst A10 Fimbria - Wrens fallopian tube A11 Cross-sections of Wrens fallopian tube Grossing performed at [facility] Pathology, [facility] [facility], [address], [place], [place] [address]. Ground Nuclear Weapons Assembly Officer: Alexey Song M.D. MICROSCOPIC DESCRIPTION Uterus, cervix and bilateral fallopian tubes. Sections demonstrate squamous ectocervix and glandular endocervix. Nabothian cysts and chronic cervicitis are identified. Sections of endometrium demonstrate secretory phase endometrium. The myometrium demonstrates adenomyosis. Sections of the fallopian demonstrate unremarkable fallopian tube with paratubal cysts. Signed SIGNATURE ON FILE Chip Zhang 05/11/20 1436 -------- END OF REPORT URINALYSIS [id number] 12:15:00* Test Item Value Reference Range Interpretation Comme nts UA GLUCOSE DIPSTICK (test code = DGLUU) NEGATIVE mg/dL NEG UA BILIRUBIN DIPSTICK (test code = BILU) NEGATIVE mg/dL NEG UA KETONE DIPSTICK (test code = KETU) NEGATIVE mg/dL NEG UA SPECIFIC GRAVITY (test code = SGU) 1.025 SG 1.005-1.030 UA BLOOD DIPSTICK (test code = MARISOL) NEGATIVE mg/DL NEG UA PH DIPSTICK (test code = TRISHA) 6.0 pH UNITS 5.0-7.0 UA PROTEIN DIPSTICK (test code = PROU) NEGATIVE mg/dL NEG UA UROBILINIOGEN DIPSTICK (test code = URO) 0.2 mg/dL <2.0 UA NITRITE DIPSTICK (test code = TIKA) NEGATIVE SCREEN NEG UA LEUKOCYTE ESTERASE DIPSTICK (test code = LEUU) NEGATIVE Leuk/mcL NEGATIVE Urine Specimen Type: Clean CatchUR HCG [id number] 12:15:00* Test Item Value Reference Range Interpretation Comme nts UR HCG QUAL (test code = HCGQLU) NEGATIVE Urine Specimen Type: Clean CatchURINALYSIS [id number] 12:15:00* Test Item Value Reference Range Interpretation Comme nts UA GLUCOSE DIPSTICK (test code = DGLUU) NEGATIVE mg/dL NEG UA BILIRUBIN DIPSTICK (test code = BILU) NEGATIVE mg/dL NEG UA KETONE DIPSTICK (test code = KETU) NEGATIVE mg/dL NEG UA SPECIFIC GRAVITY (test code = SGU) 1.025 SG 1.005-1.030 UA BLOOD DIPSTICK (test code = MARISOL) NEGATIVE mg/DL NEG UA PH DIPSTICK (test code = TRISHA) 6.0 pH UNITS 5.0-7.0 UA PROTEIN DIPSTICK (test code = PROU) NEGATIVE mg/dL NEG UA UROBILINIOGEN DIPSTICK (test code = URO) 0.2 mg/dL <2.0 UA NITRITE DIPSTICK (test code = TIKA) NEGATIVE SCREEN NEG UA LEUKOCYTE ESTERASE DIPSTICK (test code = LEUU) NEGATIVE Leuk/mcL NEGATIVE Urine Specimen Type: Clean CatchUR HCG [id number] 12:15:00* Test Item Value Reference Range Interpretation Comme nts UR HCG QUAL (test code = HCGQLU) NEGATIVE NEGATIVE Urine Specimen Type: Clean CatchCBC W/AUTO [id number] 12:11:00* Test Item Value Reference Range Interpretation Comme nts WHITE BLOOD CELL (test code = WBC) 3.7 K/mm3 3.5-11.0 N RED BLOOD CELL (test code = RBC) 4.82 M/mm3 4.70-6.10 N HEMOGLOBIN (test code = HGB) 14.4 G/DL 10.4-14.9 N HEMATOCRIT (test code = HCT) 42.9 % 31.5-44.1 N MEAN CELL VOLUME (test code = MCV) 89.0 Fl 84.5-98.6 N MEAN CELL HGB (test code = MCH) 29.9 pg 27.0-34.2 N MEAN CELL HGB CONCETRATION (test code = MCHC) 33.6 G/DL 31.5-34.0 N RED CELL DISTRIBUTION WIDTH (test code = RDW) 12.8 SD 11.5-14.5 N PLATELET COUNT (test code = PLT) 264 K/mm3 150-450 N MEAN PLATELET VOLUME (test c ode = MPV) 10.70 fL 7.0-10.5 H NEUTROPHIL % (test code = NT%) 47.8 % 40-76 N IMMATURE GRANULOCYTE % (test code = IG%) 0.3 % 0.0-5.0 N LYMPHOCYTE % (test code = LY%) 35.8 % 20.5-51.1 N MONOCYTE % (test code = MO%) 12.6 % 1.7-9.3 H EOSINOPHIL % (test code = EO%) 2.7 % 0.0-6.0 N BASOPHIL % (test code = BA%) 0.8 % 0.0-2.0 N NUCLEATED RBC % (test code = NRBC%) 0.0 /100WBC% 0.0-1.0 N NEUTROPHIL # (test code = NT#) 1.8 K/mm3 1.8-7.6 N IMMATURE GRANULOCYTE # (test code = IG#) 0.01 x10 3/uL 0.00-0.03 N LYMPHOCYTE # (test code = LY#) 1.3 K/mm3 0.6-3.2 N MONOCYTE # (test code = MO#) 0.5 K/mm3 0.3-1.1 N EOSINOPHIL # (test code = EO#) 0.1 K/mm3 0.0-0.4 N BASOPHIL # (test code = BA#) 0.0 K/mm3 0.0-0.1 N NUCLEATED RBC # (test code = NRBC#) 0.0 K/mm3 0.0-0.1 N MANUAL DIFF REQUIRED (test c ode = MDIFF) NO DIFF/SCN CRITERIA Notes Date/Time Note Provider Source 2020-05-05 16:57:00 [id number] [address] PATIENT NAME: MODESTO STEWART ADMIT DATE: 05/05/20 ACCOUNT NO: [id number] ROOM NO: AGE: 44 REPORT TYPE: OPERATIVE REPORT SEX: F ADMITTING PHYSICIAN: ATTENDING PHYSICIAN: Corinna Cooley MD OPERATION DATE: 05/05/2020 PREOPERATIVE DIAGNOSES: Pelvic pain, abnormal uterine bleeding either adenomyosis or ovulatory dysfunction. POSTOPERATIVE DIAGNOSES: Pelvic pain; abnormal uterine bleeding, either adenomyosis or ovulatory dysfunction; extensive bladder adhesions. PROCEDURES PERFORMED: Total laparoscopic hysterectomy, bilateral salpingectomy, and lysis of extensive bladder adhesions, cystoscopy. SURGEON: Corinna Cooley MD CANCELLATION CLERK: Rigo Samano ANESTHESIA: General endotracheal. COMPLICATIONS: No complications, drains. The patient's condition is stable. ESTIMATED BLOOD LOSS: 50 mL. URINE OUTPUT: 100 mL. SPECIMENS: Uterus, bilateral tubes. FINDINGS: On cystoscopy, both ureteral orifices were patent. No evidence of injury to the bladder. No abdominal findings. The ovaries on both sides were completely normal. Left and right tubes, both scarred in the distal parts and small amount of sigmoid adhesions to the area of the left IP ligament. This is below the natural attachment of the sigmoid to the left lower quadrant. Both ovaries were preserved as there was no evidence of any pathology or endometriosis. No endometriosis in the rest of the peritoneal cavity. The bladder adhesions were significant to the lower segment of the uterus. Once these were removed, the rest of the hysterectomy was unremarkable. INDICATIONS: The patient is a 44-year-old, who came over for pelvic pain, bleeding, and iron deficiency anemia. Followup from the ER, she was evaluated, endometrial sampling was performed. No evidence of atypia or malignancy. We discussed about the different options of treatment of bleeding along with ablation, diagnostic laparoscopy for the pelvic pain or laparoscopic hysterectomy with bilateral salpingectomy if there is any endometriosis, removal of that, possibly remove the left ovary if needed, but definitely preservation PATIENT NAME: MODESTO STEWART of ovaries if no other pathology was noted. All the medical treatment options were reviewed as well and the patient wanted to proceed with a hysterectomy, so she was consented and brought to the OR. PROCEDURE IN DETAIL: Two grams of Ancef were given. SCDs were started. After consent was obtained in the preop again, present for answering all questions, the patient was taken back to the OR and placed in supine fashion on the operating table. General anesthesia was given. She was placed in dorsal lithotomy position. Using Biju stirrups, abdomen, vulva, vagina, and perineum prepped and draped in a sterile fashion. Llanos was placed to drain the bladder and large VCare introduced into the uterus without any problems. A 1 cm infraumbilical incision made with scalpel using open laparoscopy technique. Fascia was incised, tagged with 0 Vicryl sutures. Peritoneum entered sharply. S retractors placed. Jayashree introduced. Insufflation done and after adequate insufflation, site of entry was checked and unremarkable. Upper abdominal surfaces unremarkable. The patient was placed in Trendelenburg. A 5 mm left lower quadrant, then 10 mm suprapubic, and 5 mm right lower quadrant ports were placed under direct vision. After visualizing the peritoneal cavity in the bottom and findings as dictated above. Proceeded with laparoscopic hysterectomy. First, the bowel adhesions were taken down from the left lateral side. Tube was removed and handed off for pathology. Then, mesosalpinx was taken down. Round ligament was taken down, then the broad ligament was opened up. Anterior broad ligament opened to the level of the bladder. There was no space to take the peritoneum down, so the posterior peritoneum was taken down here. As I was attempting to take it down, there was some bleeding at the level of the uterine vein. This was cauterized with the bipolar Kleppinger and then proceeded taking down the peritoneum all the way to the posterior uterosacral ligament. Then on the opposite side, the tube was removed. The uteroovarian ligament was taken down, mesosalpinx was taken down leaving the proximal part of the tube attached to the specimen. Then, round ligament taken down, posterior broad ligament taken down to the right uterosacral. However, anteriorly, here opening up the anterior broad ligament came down to the level of the bladder. There was just a lot of scar tissue that did not allow me to visualize the VCare cup or the paravesical space. So, basically, went down posteriorly, identified the vessels. Both ureters were identified and had no anatomical distortions. So once all the vessels were skeletonized posteriorly, both sites were ascertained that the bladder adhesions were very anterior and no vessels were involved in this. Then, the left paravesical space was opened up by starting laterally, opening up the peritoneum, then taking down the scar tissue that was holding down to the lateral aspect of the left side of the bladder. Then once the peritoneum was opened up, paravesical space was entered with a push-spread technique using the graspers. Then once I reached the anterior vaginal wall on top of the VCare cup and under the bladder here, a plane was developed in the retroperitoneum. Once I got in here, then I was able to dissect the bladder off the anterior vaginal wall and the lower wall of the uterus where the scar was. Sharp dissection was performed along with the LigaSure bipolar cautery in short bursts to cut and to detach the bladder from the uterus. Once all this was done all the way to the right, the right paravesical space was entered from the right side and then the bladder was dissected off completely from the anterior vaginal wall, especially at the level of the VCare cup. The vesicovaginal space was entered in the midline and then the bladder was pushed down inferiorly, leaving PATIENT NAME: MODESTO STEWART at least 1.5 cm of the anterior vaginal wall exposed for suturing. Then, the vessels were taken down first on the right side, then on the left side. Cardinal ligaments were also cauterized and cut, especially more difficulty and scar tissue on the left side. So once all this was removed and the circumferential perimeter of the cup was well visualized and the cardinal ligaments were all taken down, then monopolar was used with a L hook to perform a colpotomy. Specimen pulled out through the vagina. Thorough suction irrigation was performed at the vaginal cuff posteriorly at 8 o'clock. There was some bleeding, which was cauterized with the Kleppinger, then bipolar Kleppinger, then there was excellent hemostasis after this. Thorough irrigation suction performed again. Ovaries checked again. No evidence of any endometriosis. Closed the vaginal cuff with a 0 Vicryl suture, simple, at both angles, tied outside the angle and 3 [id number] in the center for very good closure, inclusion of the uterosacral along with the anterior and posterior vaginal kemp and connective tissue, closing this and supporting the apex. Once this was done, the bladder was filled and drained. No evidence of any extravasation. The adhesions that were taken down and all the dissection that was performed did not have any injury to the bladder, very superficial serosal damage was noted and did not warrant any further treatment. Then, all the pedicles were checked, ports were pulled, injected the sites, the skin and the fascial levels. The umbilical port was closed after Jayashree was pulled out. The gas was desufflated. Fascia closed with a tag sutures tied to each other. All 4 incision sites were injected with 0.25% Marcaine as well as the umbilical incision. Once this was done, all the skin incisions closed with the help of interrupted 4-0 Monocryl sutures. The suprapubic fascial site was not closed as this was too scarred and the opening was very tiny. The Llanos was removed. The vaginal occluder was removed. Then, cystoscopy was performed with 30-degree lens, normal saline, and 21-Malaysian sheath. There was no evidence of any bladder trauma, foreign body in the bladder. Both ureteral orifices patent and the procedure was completed after draining the bladder. The vagina was cleaned up. Instrument, needle, and sponge counts x3 were correct at the end of the case. The patient was recovered from anesthesia and taken to PACU in stable condition. Dictated By: Corinna Cooley MD WT: OP:DURGA/JAX/HORACIO Conf#: [id number]/DID#: [id number] Authenticated by Corinna Cooley MD On 05/26/2020 03:50:48 PM at 1551 PATIENT NAME: MODESTO STEWART [facility] 2020-05-05 16:41:[address] [facility] Brief Op Note REPORT#:[id number] REPORT STATUS: Signed DATE:05/05/20 TIME:164 PATIENT: MODESTO STEWART UNIT #: [id number] ROOM/BED: : 76 AGE: 44 SEX: F ATTEND: Corinna Cooley MD ADM AUTHOR: Corinna Cooley MD * ALL edits or amendments must be made on the electronic/computer document * Op/Inv Proc Note - Brief Pre-procedure diagnosis: pelvic pain AUB-O/A Post-procedure diagnosis: same as pre procedure dx, extensive bladder adhesions Procedures performed: TLH bilateral salpingectomy extensive lysis of bladder adhesions >50% time Primary Surgeon: lenora Budget Report Clerk(s): bradley lange Anesthesia: general anesthesia Findings: bladder adhesions to uterus, ovaries normal Complications: none Estimated blood loss in ml's: 50 Specimens removed/altered: uterus bilateral tubes Drain(s): None Urine output: 100 Approach: laparoscopic Wound class: clean-contaminated Disposition: plan to D/C home Dictation number: [id number] at 1659 RPT #: [id number] END OF REPORT HCAPM
[2024-06-25] MEDS ORDERED: KETOROLAC 30 MG/ML INJ ONE (13:57)
[2024-06-25] MEDS ORDERED: NA CHLORIDE 0.9% 500 ML ONE (13:57)
[2024-06-25] MEDS ORDERED: METHYLPREDNISOLONE 40 MG INJ ONE (13:57)
[2024-06-25] MEDS ORDERED: DIAZEPAM 10 MG/2 ML INJ SYRINGE ONE ×3 (14:19→18:17)
[2024-06-25 14:37] LABS: Absolute Lymphocytes (CBC) 1.9 K/uL (0.7-4.9); Absolute Monocytes 0.6 K/uL (0.1-1.3); Absolute Neutrophil 2.4 K/uL (1.8-8.0); Basophils % 0.5 % (0-1.3); Eosinophils % 0.8 % (0-4.4); Hematocrit 41.6 % (36.0-45.0); Hemoglobin 13.4 g/dL (12.0-15.0); Lymphocytes % 38.7 % (15.3-44.8); MCH 26.1 pg (27.0-35.0); MCHC 32.2 g/dL (32.0-36.0); MCV 81.1 fL (80-100); MPV 8.8 fL (7.6-11.3); Monocytes % 12.9 % (3.3-12.3); Neutrophils % 47.1 % (41.7-73.7); Nucleated Red Blood Cells % 0.1 % (0-0); Platelets 274 thou/uL (152-406); RBC Red Blood Cell Count 5.13 M/uL (3.86-4.86); Red Cell Distribution Width 15.6 % (12.1-15.2)
[2024-06-25 14:55] LABS: ALT/SGPT 16 U/L (13-56); AST/SGOT 14 U/L (15-37); Albumin 4.1 g/dL (3.4-5.0); Alkaline Phosphatase 85 U/L (45-117); Anion Gap 11.2 mEq/L (5.0-15.0); BUN Blood Urea Nitrogen 9 mg/dL (7-18); Bicarbonate 22 mEq/L (21-32); Bilirubin Total 0.3 mg/dL (0.2-1.0); Globulin 4.3 g/dL (2.3-3.5); Glomerular Filtration Rate 70 ml/min (=/>90); Glucose Level 89 mg/dL (74-106); Magnesium 1.8 mg/dL (1.6-2.4); Potassium 3.2 mEq/L (3.5-5.1); Protein, Total 8.4 g/dL (6.4-8.2); Sodium Level 140 mEq/L (136-145); Troponin High Sensitivity 4.5 pg/mL (<58.9)
[2024-06-25 14:57] LABS: Bilirubin Direct < 0.2 mg/dL (0-0.2); Bilirubin Indirect, Calculated 0.1 mg/dL (0.2-0.8)
[2024-06-25 14:59] LABS: SARS-CoV-2 Antigen CONTROL BLUE LINE VIS/BG OK; SARS-CoV-2 Antigen Rapid Res Negative (Negative)
--- NOTE | 2024-06-25 15:07 | RAD REPORT ---
EXAMINATION: TWO VIEW CHEST XR CLINICAL INDICATION: COUGH TECHNIQUE: 2 views of the chest was performed. COMPARISON: No prior exam. FINDINGS: The lungs are well inflated and clear. The heart is normal in size. No displaced fractures evident. IMPRESSION: No acute or significant abnormalities.
[2024-06-25] MEDS ORDERED: FENTANYL CITR 100 MCG/2 ML ONE (15:16)
[2024-06-25] MEDS ORDERED: POTASSIUM 25 MEQ EFFERV TAB ONE (15:17)
[2024-06-25 15:47] LABS: Specific Gravity 1.021 (1.005-1.030); Urine Bilirubin NEGATIVE (Negative); Urine Blood Negative (Negative); Urine Clarity Clear (Clear); Urine Color Light-Yellow (Yellow); Urine Glucose NEGATIVE (Negative); Urine Ketones NEGATIVE (Negative); Urine Microscopic Reflex YN NO UMIC; Urine Nitrite NEGATIVE (Negative); Urine Protein NEGATIVE (Negative); Urine Urobilinogen 1+ (Normal)
[2024-06-25 15:50] LABS: Specific Gravity 1.021 (1.005-1.030)
[2024-06-25] MEDS ORDERED: MORPHINE 4 MG/ML SYR ONE (16:31)
--- NOTE | 2024-06-25 17:23 | RAD REPORT ---
EXAMINATION: CTA CHEST PE CLINICAL INDICATION: CHEST PAIN TECHNIQUE: This examination was performed according to an angiographic protocol with 3D post-processi ng. This involves 3D reconstructions, MIPs, volume rendered images and/or shaded surface rendering. One or more of the following dose reduction techniques were used: Automated exposure control, adjustm ent of the mA and/or kV according to patient size, and/or iterative reconstruction. Unless otherwise specified, incidental findings do not require dedicated imaging follow-up. COMPARISON: No prior exam. FINDINGS: PULMONARY ARTERIES: Normal caliber. No evidence of pulmonary emboli to the subsegmental level. THORACIC AORTA: Normal caliber and configuration. LUNGS: No evidence of airspace or interstitial process. No nodules. PLEURA: No pleural effusion. No pneumothorax. MEDIASTINUM AND LYMPH NODES: No mediastinal mass or fluid collection. Normal size mediastinal, hilar, and axillary lymph nodes. OSSEOUS STRUCTURES AND CHEST WALL: Intact. UPPER ABDOMEN: No significant abnormalities. IMPRESSION: No evidence of pulmonary emboli to the subsegmental level.
--- NOTE | 2024-06-25 17:54 | EDPHYS ---
Physician Documentation [facility] Name: Stephanie Espinoza Age: 48 yrs Sex: Female : 1975 Arrival Date: 06/25/2024 Time: 13:26 Bed 16 Private MD: ED Physician Ryder Harding HPI: 06/25 13:52 This 48 yrs old Female presents to ER via Ambulatory with complaints of Bronchitis, cp Chest Tightness, Breathing Difficulty. 13:52 The patient or guardian reports cough, difficulty breathing. Onset: The cp symptoms/episode began/occurred last week. Associated signs and symptoms: Pertinent positives: chest pain, with cough, with breathing, nausea, Pertinent negatives: fever, vomiting. Severity of symptoms: in the emergency department the symptoms are unchanged despite home interventions. 13:52 The patient has been recently seen by a physician: the patient's primary care provider, cp with similar presenting complaints, Patient reports she was diagnosed with strep and had her antibiotics changed from Augmentin to penicillin which she started taking yesterday. Patient presents with cough, congestion and chest pain with breathing and shortness of breath, but the patient's symptoms have worsened. Historical: - Allergies: 13:40 Levaquin; tm6 13:40 Sulfa (Sulfonamide Antibiotics); tm6 13:40 tramadol; tm6 - PMHx: 13:40 Hypothyroidism; Migraines; tm6 - PSHx: 13:40 hysterectomy; tm6 - Immunization history:: Client reports receiving the 2nd dose of the Covid vaccine. - Infectious Disease History:: Denies. - Social history:: Smoking status: Patient denies any tobacco usage or history of. ROS: 13:55 Constitutional: Positive for body aches, chills, Negative for fever, cp 13:55 Cardiovascular: Positive for chest pain, Negative for edema, cp 13:55 Respiratory: Positive for cough, shortness of breath, 13:55 Eyes: Negative for injury, pain, redness, and discharge, cp 13:55 ENT: Negative for drainage from ear(s), ear pain, difficulty swallowing, difficulty handling secretions, 13:55 Abdomen/GI: Negative for abdominal pain, vomiting, diarrhea, constipation, 13:55 Neuro: Negative for altered mental status, numbness, 13:55 All other systems are negative, Exam: 14:00 Constitutional: The patient appears in no acute distress, alert, awake, cp non-diaphoretic, non-toxic, well developed, well nourished, anxious, uncomfortable, 14:00 Head/Face: Normocephalic, atraumatic. cp 14:00 Eyes: Periorbital structures: appear normal, Conjunctiva: normal, no exudate, no injection, Sclera: no appreciated abnormality, Lids and lashes: appear normal, bilaterally, 14:00 ENT: External ear(s): are unremarkable, Nose: is normal, Mouth: Lips: moist, Oral mucosa: pink and intact, moist, Posterior pharynx: Airway: no evidence of obstruction, patent, 14:00 Neck: ROM/movement: is normal, is supple, without pain, no range of motions limitations, 14:00 Chest/axilla: Inspection: normal, 14:00 Cardiovascular: Rate: tachycardic, Rhythm: regular, Edema: is not appreciated, JVD: is not appreciated, 14:00 Respiratory: the patient does not display signs of respiratory distress, Respirations: shallow respirations, that is moderate, Breath sounds: are clear throughout, no decreased breath sounds, no stridor, no wheezing, 14:00 Abdomen/GI: Inspection: abdomen appears normal, Palpation: abdomen is soft and non-tender, in all quadrants, 14:00 Back: pain, is absent, ROM is normal, 14:00 Skin: cellulitis, is not appreciated, no rash present. 14:00 Neuro: Orientation: to person, place \T\ time. Mentation: is normal, Motor: moves all fours, strength is normal, Sensation: no obvious gross deficits, 14:05 ECG was reviewed by the Attending Physician. cp Vital Signs: 13:38 BP 119 / 88; Pulse 108; Resp 25; Temp 97.6(O); Pulse Ox 100% on R/A; MAP 100 mmHg; tm6 Weight 56.7 kg; Height 5 ft. 4 in. ; Pain 9/10; 14:25 Pulse 69; Resp 20 S; Pulse Ox 100% on R/A; kc6 15:45 BP 153 / 99; Pulse 66; Resp 16 S; Pulse Ox 100% on R/A; kc6 16:36 BP 132 / 83; Pulse 74; Resp 18 S; Pulse Ox 99% on R/A; Pain 7/10; kc6 18:25 BP 143 / 82; Pulse 76; Resp 16 S; Pulse Ox 100% on R/A; kc6 13:38 Body Mass Index 21.46 (56.70 kg, 162.56 cm) tm6 13:38 Pain Scale: Adult tm6 16:36 Pain Scale: Adult kc6 MDM: 13:44 Medical Screening Exam initiated 17:30 Data reviewed: vital signs, nurses notes, lab test result(s), EKG, radiologic studies, cp CT scan, plain films. 17:30 I considered the following discharge prescriptions or medication management in the emergency department Medications were administered in the Emergency Department. See MAR. Independent interpretation of the following test(s) in the Emergency Department EKG: See my EKG interpretation above. Counseling: I had a detailed discussion with the patient and/or guardian regarding the historical points, exam findings, and any diagnostic results supporting the discharge/admit diagnosis, lab results, radiology results, to return to the emergency department if symptoms worsen or persist or if there are any questions or concerns that arise at home. Response to treatment: the patient's symptoms have markedly improved after treatment, and as a result, I will discharge patient. ED course: VSS. Discussed results of today's testing to include CT chest that was negative for PE and pneumonia. Cardiac enzymes negative. concern about patient frequent requests for pain medications. will discharge home with RX for NSAIDS for pain control. patient has prescribed antibiotic, steroids and cough medicine. 06/25 13:48 Order name: Basic Metabolic Panel; Complete Time: 15:10 06/25 15:10 Interpretation: Normal except: K 3.2; CL 110; GFR 70. 06/25 13:48 Order name: CBC with Diff; Complete Time: 14:51 06/25 14:52 Interpretation: Normal except: RBC 5.13; MCH 26.1; RDW 15.6; MN% 12.9. 06/25 13:48 Order name: LFT's; Complete Time: 15:10 06/25 15:10 Interpretation: Normal except: AST 14; IBILI, CALC 0.1; TP 8.4; GLOB 4.3; A/G 1.0. 06/25 13:48 Order name: Magnesium; Complete Time: 15:10 06/25 15:11 Interpretation: Reviewed. 06/25 13:48 Order name: Troponin HS; Complete Time: 15:10 06/25 17:29 Interpretation: Reviewed. 06/25 13:48 Order name: SARS RAPID; Complete Time: 15:10 06/25 13:48 Order name: Influenza Screen (a \T\ B); Complete Time: 15:10 06/25 13:48 Order name: RSV; Complete Time: 15:10 06/25 14:15 Order name: Urinalysis w/ reflexes; Complete Time: 16:10 06/25 16:10 Interpretation: Normal except: UPH 8.0; UUROB 1+. 06/25 14:15 Order name: Test, Urine; Complete Time: 16:10 06/25 16:10 Interpretation: Reviewed. 06/25 15:43 Order name: Troponin HS; Complete Time: 17:00 06/25 17:00 Interpretation: Reviewed. 06/25 14:15 Order name: XRAY Chest Pa And Lat (2 Views); Complete Time: 15:10 06/25 16:20 Order name: CT Chest For PE Angio; Complete Time: 17:28 06/25 17:29 Interpretation: Report reviewed. 06/25 13:48 Order name: EKG; Complete Time: 13:48 06/25 13:48 Order name: Cardiac monitoring; Complete Time: 14:15 06/25 13:48 Order name: EKG - Nurse/Tech; Complete Time: 14:15 06/25 13:48 Order name: IV Saline Lock; Complete Time: 14:15 06/25 13:48 Order name: Labs collected and sent; Complete Time: 14:15 06/25 13:48 Order name: O2 Per Protocol; Complete Time: 13:54 06/25 13:48 Order name: O2 Sat Monitoring; Complete Time: 13:54 06/25 14:34 Order name: EKG - Nurse/Tech; Complete Time: 15:01 cp EC:05 Rate is 108 beats/min. Rhythm is regular. ND interval is normal. QRS interval is cp normal. QT interval is normal. Interpreted by me. Reviewed by me. Administered Medications: 14:15 Drug: Ketorolac IVP 15 mg IVP once Route: IVP; Site: left antecubital; kc6 14:44 Follow up: Response: No adverse reaction kc6 14:15 Drug: NS 0.9% IV 500 ml IV at bolus once; to be given as a bolus over 30 minutes Route: kc6 IV; Rate: bolus; Site: left antecubital; 15:44 Follow up: Response: No adverse reaction; IV Status: Completed infusion; IV Intake: kc6 500ml 14:15 Drug: MethylPrednisoLONE IVP 80 mg IVP once Route: IVP; Site: left antecubital; kc6 14:44 Follow up: Response: No adverse reaction kc6 14:24 Drug: Diazepam IVP 2 mg IVP once Route: IVP; Site: left antecubital; kc6 14:44 Follow up: Response: No adverse reaction; Anxiety unchanged; RASS: Restless (+1) kc6 15:37 Drug: fentaNYL (PF) IVP 25 mcg IVP once Route: IVP; Site: left antecubital; kc6 16:22 Follow up: Response: No adverse reaction; Pain is unchanged, physician notified kc6 15:37 Drug: Diazepam IVP 2 mg IVP once Route: IVP; Site: left antecubital; kc6 16:21 Follow up: Response: No adverse reaction; Anxiety decreased; RASS: Alert and Calm (0) kc6 15:37 Drug: Potassium PO Effervescent Tablet 50 mEq PO once; dissolve in 4 ounces of water or kc6 juice Route: PO; 16:21 Follow up: Response: No adverse reaction kc6 16:36 Drug: morphine IVP or IV 4 mg IVP once over 4 mins Route: IVP; Infused Over: 4 mins; kc6 Site: left antecubital; 17:36 Follow up: Response: No adverse reaction; Pain is decreased kc6 18:14 Not Given (Physician Discretion): ativan1 mg IVP once cp 18:24 Drug: Diazepam IVP 5 mg IVP once Route: IVP; Site: left antecubital; kc6 18:47 Follow up: Response: No adverse reaction; Anxiety decreased; RASS: Alert and Calm (0) kc6 Disposition Summary: 06/25/24 17:54 Discharge Ordered Notes: Location: Home cp Problem: new cp Symptoms: have improved cp Condition: Stable cp Diagnosis - Chest pain, unspecified cp - Cough cp Followup: cp - With: Private Physician - When: 2 - 3 days - Reason: Recheck today's complaints Discharge Instructions: - Discharge Summary Sheet cp - Nonspecific Chest Pain, Adult cp - Cool Mist Vaporizer cp - Aspirin and Your Heart cp - Cough, Adult cp Forms: - Medication Reconciliation Form cp - Antibiotic Education cp - Prescription Opioid Use cp - Patient Portal Instructions cp - Leadership Thank You Letter cp Prescriptions: - Diclofenac Sodium 75 mg Oral Tablet Sustained Release - take 1 tablet ORAL route 2 times per day; 30 tablet; Refills: 0, Product cp Selection Permitted Signatures: Dispatcher [employer] EDRyder Kirkpatrick PA PA cp Campbell, Kaitlyn, RN RN kc6 Donnie Sy RN RN tm6
--- NOTE | 2024-06-25 17:54 | ER ---
Nurse's Notes [facility] Name: Stephanie Espinoza Age: 48 yrs Sex: Female : 1975 Arrival Date: 06/25/2024 Time: 13:26 Bed 16 Private MD: Diagnosis: Chest pain, unspecified;Cough Presentation: 06/25 13:39 Chief complaint: Patient states: I haven't felt well in a couple of days. It hurts to tm6 breathe. I went to the doctor and she said I had bronchitis and strep and gave me antibiotics and breathing treatments. Today I am shaking, having pains, it hurts to breathe. Coronavirus screen: Client denies travel out of the [place] in the last 14 days. Ebola Screen: Patient negative for fever greater than or equal to 101.5 degrees Fahrenheit, and additional compatible Ebola Virus Disease symptoms Patient denies exposure to infectious person. Patient denies travel to an Ebola-affected area in the 21 days before illness onset. No symptoms or risks identified at this time. Initial Sepsis Screen: Does the patient meet any 2 criteria? RR > 20 per min. HR > 90 bpm. No. Patient's initial sepsis screen is negative. Does the patient have a suspected source of infection? No. Patient's initial sepsis screen is negative. Risk Assessment: Do you want to hurt yourself or someone else? Patient reports no desire to harm self or others. Onset of symptoms was June 22, 2024. 13:39 Method Of Arrival: Ambulatory tm6 13:39 Acuity: AI 3 tm6 Triage Assessment: 13:40 General: Appears uncomfortable, Behavior is cooperative. Pain: Complains of pain in tm6 chest, body Pain currently is 9 out of 10 on a pain scale. Quality of pain is described as tightness, shaking Pain began 2-3 days ago. EENT:. Neuro: Level of Consciousness is awake, alert, obeys commands. Cardiovascular: Patient's skin is warm and dry. Respiratory: Reports cough that is pain with respiration Airway is patent Respiratory effort is labored, Respiratory pattern is regular, symmetrical. GI: No signs and/or symptoms were reported involving the gastrointestinal system. Abdomen is flat, non-distended. : No signs and/or symptoms were reported regarding the genitourinary system. Derm: No signs and/or symptoms reported regarding the dermatologic system. Musculoskeletal: Reports body tightness and aching. Historical: - Allergies: 13:40 Levaquin; tm6 13:40 Sulfa (Sulfonamide Antibiotics); tm6 13:40 tramadol; tm6 - PMHx: 13:40 Hypothyroidism; Migraines; tm6 - PSHx: 13:40 hysterectomy; tm6 - Immunization history:: Client reports receiving the 2nd dose of the Covid vaccine. - Infectious Disease History:: Denies. - Social history:: Smoking status: Patient denies any tobacco usage or history of. Screenin:16 [facility] ED Fall Risk Assessment (Adult) History of falling in the last 3 months, kc6 including since admission No falls in past 3 months (0 pts) Confusion or Disorientation No (0 pts) Intoxicated or Sedated No (0 pts) Impaired Gait No (0 pts) Mobility Assist Device Used No (0 pt) Altered Elimination No (0 pt) Score/Fall Risk Level 0 - 2 = Low Risk Oriented to surroundings, Maintained a safe environment. Abuse screen: Denies threats or abuse. Denies injuries from another. Nutritional screening: No deficits noted. Tuberculosis screening: No symptoms or risk factors identified. Assessment: 14:16 General: Appears distressed, uncomfortable, well groomed, well developed, Behavior is kc6 anxious, crying, restless, Reports feeling ill for > 3 days. Pain: Complains of pain in chest Pain does not radiate. Pain currently is 10 out of 10 on a pain scale. Noted to be crying, resistant to movement. Neuro: Level of Consciousness is awake, alert, obeys commands, Oriented to person, place, time, situation, Appropriate for age. Cardiovascular: Reports chest pain, Capillary refill < 3 seconds Rhythm is regular. Respiratory: Reports shortness of breath at rest on exertion pain with respiration Airway is patent Trachea midline Respiratory effort is even, labored, with nasal flaring, pursed lip, Respiratory pattern is symmetrical, hyperventilation. GI: No signs and/or symptoms were reported involving the gastrointestinal system. : No signs and/or symptoms were reported regarding the genitourinary system. EENT: No signs and/or symptoms were reported regarding the EENT system. Derm: No signs and/or symptoms reported regarding the dermatologic system. Skin is intact, is healthy with good turgor, Skin is pink, warm \T\ dry. Musculoskeletal: No signs and/or symptoms reported regarding the musculoskeletal system. Circulation, motion, and sensation intact. Capillary refill < 3 seconds, Range of motion: intact in all extremities. 15:45 Reassessment: Patient appears in no apparent distress at this time. No changes from kc6 previously documented assessment. Patient and/or family updated on plan of care and expected duration. Pain level reassessed. Patient is alert, oriented x 3, equal unlabored respirations, skin warm/dry/pink. Patient states feeling better. Patient states symptoms have improved. 17:36 Reassessment: Patient appears in no apparent distress at this time. No changes from kc6 previously documented assessment. Patient and/or family updated on plan of care and expected duration. Pain level reassessed. Patient is alert, oriented x 3, equal unlabored respirations, skin warm/dry/pink. 18:25 Reassessment: Patient appears in no apparent distress at this time. No changes from kc6 previously documented assessment. Patient and/or family updated on plan of care and expected duration. Pain level reassessed. Patient is alert, oriented x 3, equal unlabored respirations, skin warm/dry/pink. d/c pending ride home. pt states is on his way. Vital Signs: 13:38 BP 119 / 88; Pulse 108; Resp 25; Temp 97.6(O); Pulse Ox 100% on R/A; MAP 100 mmHg; tm6 Weight 56.7 kg; Height 5 ft. 4 in. ; Pain 9/10; 14:25 Pulse 69; Resp 20 S; Pulse Ox 100% on R/A; kc6 15:45 BP 153 / 99; Pulse 66; Resp 16 S; Pulse Ox 100% on R/A; kc6 16:36 BP 132 / 83; Pulse 74; Resp 18 S; Pulse Ox 99% on R/A; Pain 7/10; kc6 18:25 BP 143 / 82; Pulse 76; Resp 16 S; Pulse Ox 100% on R/A; kc6 13:38 Body Mass Index 21.46 (56.70 kg, 162.56 cm) tm6 13:38 Pain Scale: Adult tm6 16:36 Pain Scale: Adult kc6 ED Course: 13:28 Patient arrived in ED. mr 13:29 [facility]cht [facility]. cp 13:32 Ryder Harding MD is Attending Physician. cp 13:40 Triage completed. tm6 13:40 Arm band placed on right wrist. tm6 13:53 Andreina Jarmaillo, RN is Primary Nurse. kc6 14:16 Patient has correct armband on for positive identification. Bed in low position. Call kc6 light in reach. Side rails up X 1. geometry professor on. Pulse ox on. NIBP on. Door closed. Noise minimized. Lights dimmed. Warm blanket given. Pillow given. 14:16 Inserted saline lock: 20 gauge in left antecubital area, using aseptic technique. Blood kc6 collected. Flushed with 10 mL NS. Patient maintains SpO2 saturation greater than 95% on room air. 14:56 XRAY Chest Pa And Lat (2 Views) In Process Unspecified. EDMS 17:15 CT Chest For PE Angio In Process Unspecified. EDMS 18:47 No provider procedures requiring assistance completed. IV discontinued, intact, kc6 bleeding controlled, No redness/swelling at site. Pressure dressing applied. Administered Medications: 14:15 Drug: Ketorolac IVP 15 mg IVP once Route: IVP; Site: left antecubital; kc6 14:44 Follow up: Response: No adverse reaction kc6 14:15 Drug: NS 0.9% IV 500 ml IV at bolus once; to be given as a bolus over 30 minutes Route: kc6 IV; Rate: bolus; Site: left antecubital; 15:44 Follow up: Response: No adverse reaction; IV Status: Completed infusion; IV Intake: kc6 500ml 14:15 Drug: MethylPrednisoLONE IVP 80 mg IVP once Route: IVP; Site: left antecubital; kc6 14:44 Follow up: Response: No adverse reaction kc6 14:24 Drug: Diazepam IVP 2 mg IVP once Route: IVP; Site: left antecubital; kc6 14:44 Follow up: Response: No adverse reaction; Anxiety unchanged; RASS: Restless (+1) kc6 15:37 Drug: fentaNYL (PF) IVP 25 mcg IVP once Route: IVP; Site: left antecubital; kc6 16:22 Follow up: Response: No adverse reaction; Pain is unchanged, physician notified kc6 15:37 Drug: Diazepam IVP 2 mg IVP once Route: IVP; Site: left antecubital; kc6 16:21 Follow up: Response: No adverse reaction; Anxiety decreased; RASS: Alert and Calm (0) kc6 15:37 Drug: Potassium PO Effervescent Tablet 50 mEq PO once; dissolve in 4 ounces of water or kc6 juice Route: PO; 16:21 Follow up: Response: No adverse reaction kc6 16:36 Drug: morphine IVP or IV 4 mg IVP once over 4 mins Route: IVP; Infused Over: 4 mins; kc6 Site: left antecubital; 17:36 Follow up: Response: No adverse reaction; Pain is decreased kc6 18:14 Not Given (Physician Discretion): ativan1 mg IVP once cp 18:24 Drug: Diazepam IVP 5 mg IVP once Route: IVP; Site: left antecubital; kc6 18:47 Follow up: Response: No adverse reaction; Anxiety decreased; RASS: Alert and Calm (0) kc6 Medication: 18:48 VIS not applicable for this client. kc6 Intake: 15:44 IV: 500ml; Total: 500ml. kc6 Outcome: 17:54 Discharge ordered by MD. cp 18:48 Discharged to home ambulatory, with significant other, kc6 18:48 Condition: improved 18:48 Discharge instructions given to patient, Instructed on discharge instructions, follow up and referral plans. no drinking with medication, no driving heavy equipment, medication usage, Demonstrated understanding of instructions, follow-up care, medications, Prescriptions given X 1, 18:48 Patient left the ED. kc6 Signatures: Dispatcher [employer] EDMI Cheri Jung, Tyr[place] Reg mr Ryder Albrecht PA PA cp Campbell, Kaitlyn, RN RN kc6 Donnie Sy RN RN tm6 Corrections: (The following items were deleted from the chart) 18:25 18:25 Reassessment: Patient appears in no apparent distress at this time. No changes kc6 from previously documented assessment. Patient and/or family updated on plan of care and expected duration. Pain level reassessed. Patient is alert, oriented x 3, equal unlabored respirations, skin warm/dry/pink. kc6
[2024-06-25] MEDS ORDERED: LORazepam 2 MG/ML VIAL ONE (18:15)
[2024-06-25 21:48] VITALS: TEMP 97.6
[2024-06-25 21:53] VITALS: BP 143/82; O2SAT 100
--- NOTE | 2024-06-29 12:08 | EKG ---
Test Date: 2024-06-25 Test Time: 13:58:56 Validation Technician: YO MEASUREMENT RESULTS: Intervals: Rate: 108 OR: 118 QRSD: 64 QT: 332 QTc: 444 [place]: P: 81 OR: 118 QRS: 84 T: 61 INTERPRETIVE STATEMENTS: Sinus tachycardia Biatrial enlargement ST & T wave abnormality, consider inferior ischemia Abnormal ECG Compared to ECG 10/04/2021 21:03:02 Atrial abnormality now present ST (T wave) deviation now present Possible ischemia now present Sinus bradycardia no longer present Electronically Signed On 06-29-24 12:03:21 [facility] by Isaías Cook
== END 2024-06-25 18:48 | disposition home or self-care (01) ==
LOC: ER 13:26
DX: R07.89 Other chest pain (principal); R05.9 Cough, unspecified; Z11.52 Encounter for screening for COVID-19
CPT/HCPCS: 96361; 85025; 80048; 36415; 83735; 81025; 80076; 81003; 84484 ×2; 87807; 87804 ×2; 71275; 71046; 96375; 96374; 99285; 87811; Q9967; J3360 ×3; J3010; J7040; J2919; 93005

== ENCOUNTER 2024-10-14 17:34 | Emergency (ER) | payer BC ==
--- OUTSIDE RECORDS SUMMARY | 2024-10-14 17:38 | XMS REPORT | Continuity of Care Document ---
Author Name Unknown Address [address] [facility] [place] [address] Organization [facility] [place] Address [address] [facility] [place] [address] Care Team Providers Care Ham Sawyer Name Role Phone PCP, PATIENT DOES NOT HAVE A Primary Care Physic chanda Unavailable Corinna Cooley Attending Clinician Un available [email or web address]_Lenora_S Attending Clinician SCOOTER Morris Attending Clinician Unavail able SCOOTER BUCKLEY Attending Clinician Unavail able Scooter Buckley MD Attending Clinician [facility] Eeg Attending Clinician Unavailable Doctor Unassigned, [place] Attending Clinician U Carlos Jenkins Admitting Clinician Unavailable [email or web address]_Maggya_S Admitting Clinician SCOOTER Morris Admitting Clinician Unavail able Payers Payer Name Policy Type Policy Number Effective Date Expirati on Date Source [place] [facility] (PPO) [id number] 2020 00:00:00 2023 00:00:00 [id number] 2020 00:00:00 Problems Condition Name Condition Details Condition Category Status Onset Date Resolution Date Last Treatment Date Treating Clinician Comments Source No known active problems No known active problems Disease [facility] [place] Allergies, Adverse Reactions, Alerts Allergy Name Allergy Type Status Severity Reaction(s) Onset Date Inactive Date Treating Clinician Comments Source Sulfa (Sulfona mide Antibiot ics) DA Active SV 05-04 00:00: 00 [facility] tramadol DA Active SV 05-04 00:00: 00 [facility] levoflox acin DA Active SV 05-04 00:00: 00 [facility] Sulfa (Sulfona mide Antibiot ics) DA Active SV rash 05-04 00:00: 00 [facility] tramadol DA Active SV dont feel like my self 05-04 00:00: 00 [facility] levoflox acin DA Active SV rash 05-04 00:00: 00 [facility] LEVOFLOX ACIN DRUG INGREDI Active Unknown-Cmnt 02-04 00:00: 00 [facility] SULFA (SULFONA MIDE ANTIBIOT ICS) Drug Class Active Unknown-Cmnt 02-04 00:00: 00 [facility] Levoflox acin Propensi ty to adverse reaction s Active Unknown - See comments 02-04 00:00: 00 [facility] Sulfa (Sulfona mide Antibiot ics) Propensi ty to adverse reaction s Active Unknown - See comments 02-04 00:00: 00 [facility] Social History Social Habit Start Date Stop Date Quantity Comments Source Exposure to SARS-CoV-2 (event) Not sure [facility] Sex Assigned At 1975 00:00:00 1975 00:00:00 [facility] Smoking Status Start Date Stop Date Source Unknown if ever smoked [facility] Medications Ordered Medication Name Filled Medication Name Start Date Stop Date Current Medication? Ordering Clinician Indication Dosage Frequency Signature (SIG) Comments Components Source proMETHazin e 25 mg tablet 10-03 00:00: 00 Yes TAKE 1-2 TABLETS BY MOUTH EVERY 6 HOURS NEEDED FOR NAUSEA AND VOMITING [facility] ondansetron 8 mg disintegrat ing tablet 10-03 00:00: 00 Yes TAKE 1 TABLET BY MOUTH EVERY 8 HOURS NEEDED FOR NAUSEA AND VOMITING [facility] butalbital- acetaminoph en-caff 50-325-40 mg tablet -24 00:00: 00 Yes TAKE 1 TABLET BY MOUTH TWICE DAILY NEEDED [facility] lisinopriL 5 mg tablet 09-21 00:00: 00 Yes 5mg Take 5 mg by mouth daily. [facility] levothyroxi ne 100 mcg tablet 09-21 00:00: 00 Yes TAKE 1 TABLET BY MOUTH EVERY MORNING ON AN EMPTY STOMACH [facility] gabapentin 600 mg tablet 09-21 00:00: 00 Yes 600mg Take 600 mg by mouth 2 (two) times daily. [facility] DULoxetine 30 mg capsule 09-21 00:00: 00 Yes 30mg Take 30 mg by mouth daily. [facility] fluconazole 150 mg tablet 09-08 00:00: 00 Yes [facility] amoxicillin -clavulanat e 875-125 mg per tablet - 00:00: 00 Yes [facility] estradioL 1 mg tablet 1- 00:00: 00 Yes [facility] cyclobenzap rine 5 mg tablet 08-16 00:00: 00 Yes [facility] methylPREDN ISolone 4 mg tablets 2020-08- 00:00: 00 Yes [facility] cyclobenzap rine 10 mg tablet 2020-08- 00:00: 00 Yes TAKE ONE TABLET BY MOUTH EVERY 12 HOURS NEEDED FOR MUSCLE SPAMS [facility] No known medications 02-04 21:46: 47 No [facility] Procedures Procedure Date / Time Performed Performing Clinicia n Source ASSIGNMENT OF BENEFITS 2021-10-06 14:17:55 Docto r Unassigned, [place] [facility] Encounters Start Date/Time End Date/Time Encounter Type Admission Type Attending Clinicians Care Facility Care Department Encounter ID Source 2020-05-04 11:00:00 Inpatient Corinna Addison [facility] [id number] [address] [facility] 2023-07-24 00:00:00 2023-07-24 00:00:00 Outpatient GC_GCBZW_Ka diyala_S PRIV PRIV [id number] [facility] 2023-05-02 00:00:00 2023-05-02 00:00:00 Outpatient GC_GCBZW_Ka diyala_S PRIV PRIV [id number] [facility] 2023-03-07 00:00:00 2023-03-07 00:00:00 Outpatient GC_GCBZW_Ka diyala_S PRIV PRIV [id number] [facility] 2021-10-17 10:38:56 2021-10-17 23:59:00 Outpatient SCOOTER [facility] [id number] [facility] 2021-10-17 10:38:56 2021-10-17 23:59:00 Hospital Encounter Scooter Buckley [facility] 1..840.114 [id number] [facility] 2021-10-09 00:00:00 2021-10-09 00:00:00 Telephone Scooter Buckley [facility] 1..840.114 [id number] [facility] 2021-10-06 08:40:00 2021-10-06 11:07:18 Outpatient SCOOTER [facility] [id number] [facility] 2021-10-06 00:00:00 2021-10-06 00:00:00 Orders Only Doctor Unassigned, [place] [facility] 1..840.114 [id number] [facility] Results Test Description Test Time Test Comments Results Result Co mments Source SURG 2020-05-11 14:36:00 --------RUN DATE: 05/11/20 [facility] PAGE 1 RUN TIME: 1436 Specimen Inquiry RUN USER: INTERFACE --------PATIENT: MODESTO STEWART LOC: SINA U #: [id number] AGE/SX: 44/F ROOM: RE05/05/20REG DR: Corinna Cooley : 77 BED: DIS: STATUS: [facility] TLOC: -------- SPEC #: [id number] RECD: 05/06/20 STATUS: BIRGIT REQ #: [id number] NIMCO: 05/05/[address]: Corinna Cooley MD ENTERED: 05/06/20 SP TYPE: SURG OTHR DR: Carlos Ji Jr, MD ORDERED: SURG PATH LVL 5 COPIES TO: Carlos Ji Jr, MD [address] [place] [address] [address] [facility] [id number] Corinna Cooley MD [address] [place] [address] HISTOLOGY: TISSUE ID BLK PCS HENOK LEV PROCEDURE DISPOSITION ____ ___ ___ ___ UTERUS, NOS A 1 1 PROCEDURES: SURG PATH LVL 5 (05/06/20-104) TISSUES: A. UTERUS, NOS - UTERUS, CERVIX AND BILATERAL TUBES CLINICAL HISTORY PAIN - R10.2; ANEMIA - D50.9; EXCESSIVE/FREQUENT MENSES - N92.0 CPT CODES CPT CODE(S): 12706 , , , , , , FINAL DIAGNOSIS Uterus, cervix and bilateral fallopian tubes, hysterectomy and bilateral salpingectomy: CHRONIC CERVICITIS NABOTHIAN CYST ADENOMYOSIS BILATERAL FALLOPIAN TUBES WITH PARATUBAL CYSTS CONTINUED ON NEXT PAGE --------RUN DATE: 05/11/20 [facility] PAGE 2 RUN TIME: 1436 Specimen Inquiry RUN USER: INTERFACE --------SPEC #: R [facility]:[id number] PATIENT: MODESTO STEWART #[id number] (Continued) GROSS DESCRIPTION Uterus, cervix and bilateral [...] a patent lumen and is grossly unremarkable. Bunch Breaker sections are submitted. ba/nr Section code: A1 Anterior cervix A2 Posterior cervix A3-A4 Anterior endometrium/myometriu m A5-A6 Posterior endometrium/myometriu m A7 Serosa (posterior cul-de-sac) A8 Fimbria - Longer fallopian tube A9 Cross-sections of Longer fallopian tube paratubal cyst A10 Fimbria - [place] fallopian tube A11 Cross-sections of [place] fallopian tube Grossing performed at [facility] Pathology, [address] [place] [address], [address], [place], [place] [address]. Taproom Attendant: Alexey Song M.D. MICROSCOPIC DESCRIPTION Uterus, cervix and bilateral fallopian tubes. Sections demonstrate squamous ectocervix and glandular endocervix. Nabothian cysts and chronic cervicitis are identified. Sections of endometrium demonstrate secretory phase endometrium. The myometrium demonstrates adenomyosis. Sections of the fallopian demonstrate unremarkable fallopian tube with paratubal cysts. Signed SIGNATURE ON FILE Chip Zhang 05/11/20 1436 -------- END OF REPORT URINALYSIS [id number] 12:15:00* Test Item Value Reference Range Interpretation [...] NEGATIVE Urine Specimen Type: Clean CatchUR HCG [id number] 12:15:00* Test Item Value Reference Range Interpretation Comme nts UR HCG QUAL (test code = HCGQLU) NEGATIVE Urine Specimen Type: Clean CatchURINALYSIS [id number] 12:15:00* Test Item Value Reference Range Interpretation [...] NEGATIVE Urine Specimen Type: Clean CatchUR HCG [id number] 12:15:00* Test Item Value Reference Range Interpretation Comme nts UR HCG QUAL (test code = HCGQLU) NEGATIVE NEGATIVE Urine Specimen Type: Clean CatchCBC W/AUTO [id number] 12:11:00* Test Item Value Reference Range Interpretation [...] Notes Date/Time Note Provider Source 2020-05-05 16:57:00 [id number] [address] PATIENT NAME: MODESTO STEWART ADMIT DATE: 05/05/20 ACCOUNT NO: [id number] ROOM NO: AGE: 44 REPORT TYPE: OPERATIVE [...] bladder adhesions, cystoscopy. SURGEON: Corinna Cooley MD TAX EXPERT: Rigo Samano ANESTHESIA: General endotracheal. COMPLICATIONS: No [...] angles, tied outside the angle and 3 ggddci-ss-ceuyy in the center for very good closure, [...] performed with 30-degree lens, normal saline, and 21-Hebrew sheath. There was no evidence of any [...] By: Corinna Cooley MD WT: OP:DURGA/JAX/HORACIO Conf#: [id number]/DID#: [id number] Authenticated by Corinna Cooley MD On 05/26/2020 03:50:48 PM at 1551 PATIENT NAME: MODESTO STEWART [facility] 2020-05-05 16:41:00 [facility] Brief Op Note REPORT#:[id number] REPORT STATUS: Signed DATE:05/05/20 TIME:164 PATIENT: MODESTO STEWART UNIT #: [id number] ROOM/BED: : 76 AGE: 44 SEX: F [...] bladder adhesions >50% time Primary Surgeon: lenora Repairer Maintenance Building(s): [facility] Anesthesia: general anesthesia Findings: bladder adhesions to uterus, ovaries normal Complications: none Estimated blood loss in ml's: 50 Specimens removed/altered: uterus bilateral tubes Drain(s): None Urine output: 100 Approach: laparoscopic Wound class: clean-contaminated Disposition: plan to D/C home Dictation number: [id number] at 1659 RPT #: [id number] END OF REPORT HCAPM
[2024-10-14] MEDS ORDERED: HYDROCODONE/APAP 5/325 MG TAB ONE (18:32)
[2024-10-14] MEDS ORDERED: ONDANSETRON 4 MG/2 ML VIAL ONE (18:32)
[2024-10-14] MEDS ORDERED: DIAZEPAM 5 MG TABLET ONE (18:33)
[2024-10-14 18:40] LABS: Absolute Lymphocytes (CBC) 0.7 K/uL (0.7-4.9); Absolute Monocytes 0.1 K/uL (0.1-1.3); Absolute Neutrophil 4.1 K/uL (1.8-8.0); Basophils % 0.4 % (0-1.3); Hematocrit 39.8 % (36.0-45.0); Hemoglobin 12.8 g/dL (12.0-15.0); Lymphocytes % 13.8 % (15.3-44.8); MCH 27.1 pg (27.0-35.0); MCHC 32.2 g/dL (32.0-36.0); MPV 8.9 fL (7.6-11.3); Monocytes % 2.5 % (3.3-12.3); Neutrophils % 83.3 % (41.7-73.7); Nucleated Red Blood Cells % 0.2 % (0-0); Platelets 247 thou/uL (152-406); RBC Red Blood Cell Count 4.73 M/uL (3.86-4.86); Red Cell Distribution Width 16.5 % (12.1-15.2)
[2024-10-14 18:54] LABS: ALT/SGPT 25 U/L (13-56); AST/SGOT 34 U/L (15-37); Alkaline Phosphatase 92 U/L (45-117); Anion Gap 11.7 mEq/L (5.0-15.0); BUN Blood Urea Nitrogen 15 mg/dL (7-18); Bicarbonate 22 mEq/L (21-32); Bilirubin Total 0.2 mg/dL (0.2-1.0); Creatine Phosphokinase 447 U/L (26-192); Glomerular Filtration Rate 61 ml/min (=/>90); Glucose Level 192 mg/dL (74-106); Potassium 3.7 mEq/L (3.5-5.1); Sodium Level 138 mEq/L (136-145); Troponin High Sensitivity 3.3 pg/mL (<58.9)
[2024-10-14 18:59] LABS: Bilirubin Direct < 0.2 mg/dL (0-0.2)
--- NOTE | 2024-10-14 19:21 | RAD REPORT ---
EXAMINATION: ONE VIEW CHEST XR CLINICAL INDICATION: Female, 49 years old.,CHEST PAIN TECHNIQUE: Frontal chest projection is submitted. Examination is limited by patient positioning and t echnique. COMPARISON: 06/25/2024 FINDINGS: The lungs are well inflated and clear. No pneumothorax or sizable effusion. The heart is normal in s ize. Mediastinal contours are unremarkable. IMPRESSION: No acute intrathoracic abnormalities.
[2024-10-14] MEDS ORDERED: NA CHLORIDE 0.9% 1,000 ML ONE ×2 (19:32→20:55)
[2024-10-14] MEDS ORDERED: KETOROLAC 30 MG/ML INJ ONE (20:55)
--- NOTE | 2024-10-14 21:53 | EDPHYS ---
Physician Documentation [facility] Name: Stephanie Espinoza Age: 49 yrs Sex: Female : 1975 Arrival Date: 10/14/2024 Time: 17:34 Bed 20 Private MD: ED Physician Seven Hung HPI: 10/14 21:55 This 49 yrs old Female presents to ER via Ambulatory with complaints of Chest kb Tightness, Breathing Difficulty. 21:55 Pt is a 49 year old female who presents for chest tightness, shortness of breath, kb bodyaches, and shaking all over that started at 1200 today. States she had an iron transfusion at 1000 today where they premedicated with steroids. States she had an infusion last week without problems, but this was the first time she had the steroid. . Historical: - Allergies: 18:04 Levaquin; ph 18:04 Sulfa (Sulfonamide Antibiotics); ph 18:04 tramadol; ph - PMHx: 18:04 Hypothyroidism; Migraines; ph - PSHx: 18:04 hysterectomy; ph - Immunization history:: Adult Immunizations unknown. - Infectious Disease History:: Denies. - Social history:: Smoking status: Patient denies any tobacco usage or history of. ROS: 18:59 Constitutional: As per HPI kb Exam: 18:03 Constitutional: This is a well developed, well nourished patient who is awake, alert, kb and in no acute distress. Head/Face: Normocephalic, atraumatic. ENT: Moist Mucous membranes Cardiovascular: Regular rate Respiratory: Respirations even and unlabored. No increased work of breathing. Talking in full sentences Abdomen/GI: Soft, non-tender. No distention Skin: Warm, dry with normal turgor. Normal color. MS/ Extremity: Pulses equal, no cyanosis. Neurovascular intact. Full, normal range of motion. Neuro: Awake and alert, GCS 15, oriented to person, place, time, and situation. 18:03 ECG was reviewed by the Attending Physician. Vital Signs: 18:03 BP 152 / 86; Pulse 82; Resp 18; Temp 98; Pulse Ox 100% on R/A; Weight 60.33 kg; Height ph 5 ft. 4 in. ; 19:30 BP 142 / 93; Pulse 71; Resp 20; Pulse Ox 99% on R/A; ay 20:00 BP 138 / 88; Pulse 63; Resp 19; Pulse Ox 100% on R/A; ay 18:03 Body Mass Index 22.83 (60.33 kg, 162.56 cm) ph MDM: 17:41 Medical Screening Exam initiated kb 20:57 Data reviewed: vital signs, nurses notes. kb 21:54 Differential diagnosis: rhabdomyolysis, arrhythmia, acute mi, allergic reaction. kb Management of patient was discussed with the following: Dr Berumen. Counseling: I had a detailed discussion with the patient and/or guardian regarding the historical points, exam findings, and any diagnostic results supporting the discharge/admit diagnosis, lab results, radiology results, the need for outpatient follow up, a family practitioner, to return to the emergency department if symptoms worsen or persist or if there are any questions or concerns that arise at home. 21:57 ED course: Pt reports resolution of symptoms after toradol. kb 10/14 17:56 Order name: Basic Metabolic Panel; Complete Time: 19:10 kb 10/14 17:56 Order name: CBC with Diff; Complete Time: 18:54 kb 10/14 17:56 Order name: LFT's; Complete Time: 19:10 kb 12 17:56 Order name: Magnesium; Complete Time: 19:10 kb 12 17:56 Order name: Troponin HS; Complete Time: 19:10 kb 12 17:56 Order name: CPK; Complete Time: 19:10 kb 12 17:56 Order name: XRAY Chest (1 view); Complete Time: 19:22 kb 10/14 17:56 Order name: Cardiac monitoring; Complete Time: 18:30 kb 10/14 17:56 Order name: EKG - Nurse/Tech; Complete Time: 18:05 kb 10/14 17:56 Order name: IV Saline Lock; Complete Time: 18:30 kb 12 17:56 Order name: Labs collected and sent; Complete Time: 18:30 kb 12 17:56 Order name: O2 Per Protocol; Complete Time: 18:06 kb 12 17:56 Order name: O2 Sat Monitoring; Complete Time: 18:06 kb EC:03 Rate is 78 beats/min. Rhythm is regular. QRS [place] is Normal. MN interval is normal at kb 118 msec. QRS interval is normal at 76 msec. QT interval is normal at 456 msec. Administered Medications: 18:35 Drug: Ondansetron IVP 4 mg IVP once; over 2 minutes Route: IVP; Site: right antecubital;kc6 19:16 Follow up: Response: No adverse reaction kc6 18:35 Drug: HYDROcodone-acetaminophen PO 5 mg-325 mg 1 tabs PO once Route: PO; kc6 19:15 Follow up: Response: No adverse reaction kc6 18:35 Drug: Diazepam PO 5 mg PO once Route: PO; kc6 19:15 Follow up: Response: No adverse reaction kc6 19:37 Drug: NS 0.9% IV 1000 ml IV at 1000 ml once; to be given as a bolus over 60 minutes ay Route: IV; Rate: 1000 ml; Site: right antecubital; 22:09 Follow up: IV Status: Completed infusion ay 21:00 Drug: NS 0.9% IV 1000 ml IV at 1000 ml once; to be given as a bolus over 60 minutes ay Route: IV; Rate: 1000 ml; Site: right antecubital; 22:09 Follow up: IV Status: Completed infusion ay 21:00 Drug: Ketorolac IVP 15 mg IVP once Route: IVP; Site: right antecubital; ay 22:09 Follow up: Response: No adverse reaction ay Disposition: 10/15 07:38 Co-signature as Attending Physician, Seven Hung MD I reviewed the patient's care rn provided by the Advanced Practice Provider and agree with the diagnosis and treatment plan. Disposition Summary: 10/14/24 21:53 Discharge Ordered Notes: Location: Home(10/14/24 21:53) Condition: Stable(10/14/24 21:53) kb Diagnosis - Rhabdomyolysis kb Followup: kb - With: Emergency Department - When: As needed - Reason: Worsening of condition Followup: kb - With: Private Physician - When: 2 - 3 days - Reason: Recheck today's complaints, Continuance of care, Re-evaluation by your physician Discharge Instructions: - Discharge Summary Sheet kb - Rhabdomyolysis kb Forms: - Medication Reconciliation Form kb - Antibiotic Education kb - Prescription Opioid Use kb - Patient Portal Instructions kb - Leadership Thank You Letter kb Prescriptions: - Diclofenac Sodium 75 mg Oral tablet, delayed release (enteric coated) - take 1 tablet ORAL route 2 times per day As needed; 30 tablet; Refills: 0, kb Product Selection Permitted - orphenadrine citrate 100 mg Oral Tablet Sustained Release - take 1 tablet ORAL route 2 times per day As needed; 20 tablet; Refills: 0, kb Product Selection Permitted Signatures: Dispatcher [employer] EDMS Maureen Dickerson, PLASMA PROCESSING TECHNICIAN-C PLASMA PROCESSING TECHNICIAN-Ckb Seven Hung MD MD rn Hall, Patricia, RN RN Jaramillo, Andreina RN RN kc6 Marcel Hall RN RN ay Corrections: (The following items were deleted from the chart) 10/14 17:56 17:56 BASIC METABOLIC PANEL+C.LAB.BRZ ordered. EDMS EDMS 17:56 17:56 CBC+H.LAB.BRZ ordered. EDMS EDMS 17:56 17:56 HEPATIC FUNCTION+C.LAB.BRZ ordered. EDMS EDMS 17:56 17:56 MAGNESIUM+C.LAB.BRZ ordered. EDMS EDMS 17:56 17:56 Troponin High Sensitivity+C.LAB.BRZ ordered. EDMS EDMS 17:56 17:56 CREATINE PHOSPHOKINASE+C.LAB.BRZ ordered. EDMS EDMS 17:56 17:56 Chest Single View+RAD.RAD.BRZ ordered. EDMS EDMS 21:03 21:03 Home kb kb 21:03 21:03 Stable kb kb 21:03 21:03 Abnormal results of liver function studies kb kb 21:03 21:03 Upper abdominal pain, unspecified kb kb
--- NOTE | 2024-10-14 21:53 | ER ---
Nurse's Notes [facility] Name: Stephanie Espinoza Age: 49 yrs Sex: Female : 1975 Arrival Date: 10/14/2024 Time: 17:34 Bed 20 Private MD: Diagnosis: Rhabdomyolysis Presentation: 10/14 18:03 Chief complaint: Patient states: Chest pain and SOB after IV iron infusion. Coronavirus ph screen: Vaccine status: Patient reports being unvaccinated. Ebola Screen: No symptoms or risks identified at this time. Initial Sepsis Screen: Does the patient meet any 2 criteria? No. Patient's initial sepsis screen is negative. Does the patient have a suspected source of infection? No. Patient's initial sepsis screen is negative. Risk Assessment: Do you want to hurt yourself or someone else? Patient reports no desire to harm self or others. Onset of symptoms was October 14, 2024. 18:03 Method Of Arrival: Ambulatory ph 18:03 Acuity: AI 2 ph Triage Assessment: 18:05 General: Appears in no apparent distress. uncomfortable, Behavior is cooperative, ph anxious. Pain: Complains of pain in chest. Cardiovascular: Reports chest pain, shortness of breath. Historical: - Allergies: 18:04 Levaquin; ph 18:04 Sulfa (Sulfonamide Antibiotics); ph 18:04 tramadol; ph - PMHx: 18:04 Hypothyroidism; Migraines; ph - PSHx: 18:04 hysterectomy; ph - Immunization history:: Adult Immunizations unknown. - Infectious Disease History:: Denies. - Social history:: Smoking status: Patient denies any tobacco usage or history of. Screenin:30 [facility] ED Fall Risk Assessment (Adult) History of falling in the last 3 months, kc6 including since admission No falls in past 3 months (0 pts) Confusion or Disorientation No (0 pts) Intoxicated or Sedated No (0 pts) Impaired Gait No (0 pts) Mobility Assist Device Used No (0 pt) Altered Elimination No (0 pt) Score/Fall Risk Level 0 - 2 = Low Risk Oriented to surroundings, Maintained a safe environment, Educated pt \T\ family on fall prevention, incl call for assistance when getting out of bed. Abuse screen: Denies threats or abuse. Denies injuries from another. Nutritional screening: No deficits noted. Tuberculosis screening: No symptoms or risk factors identified. Assessment: 18:30 General: Appears distressed, uncomfortable, well groomed, well developed, Behavior is kc6 cooperative, restless. Pain: Complains of pain in mid-sternal area Pain does not radiate. Quality of pain is described as burning, sharp, stabbing, Pain began suddenly, Is continuous, Noted to be crying, grimacing, guarding, restless. Neuro: Level of Consciousness is awake, alert, obeys commands, Oriented to person, place, time, situation, Appropriate for age. Cardiovascular: Reports chest pain, Heart tones S1 S2 present Capillary refill < 3 seconds Rhythm is regular. Respiratory: Airway is patent Trachea midline Respiratory effort is even, unlabored, Respiratory pattern is regular, symmetrical. GI: No signs and/or symptoms were reported involving the gastrointestinal system. : No signs and/or symptoms were reported regarding the genitourinary system. EENT: No signs and/or symptoms were reported regarding the EENT system. Derm: No signs and/or symptoms reported regarding the dermatologic system. Skin is intact, is healthy with good turgor, Skin is pink, warm \T\ dry. Musculoskeletal: No signs and/or symptoms reported regarding the musculoskeletal system. Circulation, motion, and sensation intact. Range of motion: intact in all extremities. 19:18 General: Appears uncomfortable, Behavior is cooperative, crying. Pain: Complains of ay pain in generalised body pain Pain currently is 8 out of 10 on a pain scale. Quality of pain is described as Noted to be crying, grimacing. Neuro: Level of Consciousness is awake, alert, obeys commands, Oriented to person, place, time, situation, Speech is normal. Cardiovascular: Denies chest pain, nausea, shortness of breath, Rhythm is sinus rhythm. Respiratory: Airway is patent Respiratory effort is even, unlabored, Respiratory pattern is regular, symmetrical. GI: No signs and/or symptoms were reported involving the gastrointestinal system. : No signs and/or symptoms were reported regarding the genitourinary system. Vital Signs: 18:03 BP 152 / 86; Pulse 82; Resp 18; Temp 98; Pulse Ox 100% on R/A; Weight 60.33 kg; Height ph 5 ft. 4 in. ; 19:30 BP 142 / 93; Pulse 71; Resp 20; Pulse Ox 99% on R/A; ay 20:00 BP 138 / 88; Pulse 63; Resp 19; Pulse Ox 100% on R/A; ay 18:03 Body Mass Index 22.83 (60.33 kg, 162.56 cm) ph ED Course: 17:39 Patient arrived in ED. cj3 17:40 Maureen Dickerson FNP-C is [facility]. kb 17:41 Seven Hung MD is Attending Physician. kb 18:04 Triage completed. ph 18:05 Arm band placed on. EKG completed in triage. Results shown to MD. ph 18:11 XRAY Chest (1 view) In Process Unspecified. EDMS 18:16 Andreina Jaramillo, CHARLI is Primary Nurse. kc6 18:30 Initial lab(s) drawn, by me, sent to lab. Inserted saline lock: 20 gauge in right kc6 antecubital area, using aseptic technique. Blood collected. Flushed with 10 mL NS. Patient maintains SpO2 saturation greater than 95% on room air. 18:31 Patient has correct armband on for positive identification. Placed in gown. Bed in low kc6 position. Call light in reach. Side rails up X 1. monitor worker on. Pulse ox on. NIBP on. Door closed. Noise minimized. Lights dimmed. Warm blanket given. Pillow given. Verbal reassurance given. 19:00 Report given to CHARLI Rod. kc6 22:07 IV discontinued, intact, bleeding controlled, No redness/swelling at site. Pressure ay dressing applied. Administered Medications: 18:35 Drug: Ondansetron IVP 4 mg IVP once; over 2 minutes Route: IVP; Site: right antecubital;kc6 19:16 Follow up: Response: No adverse reaction kc6 18:35 Drug: HYDROcodone-acetaminophen PO 5 mg-325 mg 1 tabs PO once Route: PO; kc6 19:15 Follow up: Response: No adverse reaction kc6 18:35 Drug: Diazepam PO 5 mg PO once Route: PO; kc6 19:15 Follow up: Response: No adverse reaction kc6 19:37 Drug: NS 0.9% IV 1000 ml IV at 1000 ml once; to be given as a bolus over 60 minutes ay Route: IV; Rate: 1000 ml; Site: right antecubital; 22:09 Follow up: IV Status: Completed infusion ay : Drug: NS 0.9% IV 1000 ml IV at 1000 ml once; to be given as a bolus over 60 minutes ay Route: IV; Rate: 1000 ml; Site: right antecubital; : Follow up: IV Status: Completed infusion ay : Drug: Ketorolac IVP 15 mg IVP once Route: IVP; Site: right antecubital; ay : Follow up: Response: No adverse reaction ay Outcome: 21:03 Discharge ordered by . kb 21:53 Discharge ordered by . akiko 22: Discharged to home ambulatory, ay : Condition: stable 22:07 Discharge instructions given to patient, Instructed on discharge instructions, follow up and referral plans. Demonstrated understanding of instructions, follow-up care, medications, Prescriptions given X 2, 22:08 Patient left the ED. ay Signatures: Dispatcher [employer] EDMS Maureen Dickerson, AUTO BENCH MECHANIC-C AUTO BENCH MECHANIC-Ernestine Arroyo RN RN Andreina Pierce RN RN kc6 Marcel Hall RN Maya Vidal 3
[2024-10-14 22:12] VITALS: TEMP 98
[2024-10-14 22:15] VITALS: BP 138/88; O2SAT 100
--- NOTE | 2024-10-16 14:45 | EKG ---
Test Date: 2024-10-14 Test Time: 18:00:31 Discotheque Dancer: PH MEASUREMENT RESULTS: Intervals: Rate: 78 NV: 118 QRSD: 76 QT: 400 QTc: 456 [place]: P: 64 NV: 118 QRS: 76 T: 46 INTERPRETIVE STATEMENTS: Normal sinus rhythm Normal ECG Compared to ECG 06/25/2024 13:58:56 Sinus tachycardia no longer present Atrial abnormality no longer present ST (T wave) deviation no longer present Possible ischemia no longer present Electronically Signed On 10-16-24 14:41:33 CDT by sIaías Cook
== END 2024-10-14 22:08 | disposition home or self-care (01) ==
LOC: ER 17:34
DX: M62.82 Rhabdomyolysis (principal)
CPT/HCPCS: 96361; 93005; 85025; 80048; 36415; 83735; 82550; 80076; 84484; 71045; 96375; 96374; 99285; J2405; J7030 ×2

== ENCOUNTER 2025-03-03 06:33 | Inpatient (IN) | payer BC ==
--- OUTSIDE RECORDS SUMMARY | 2025-03-03 06:37 | XMS REPORT | Continuity of Care Document ---
Author Name Unknown Address [address] [facility] [address] [place] [address] [facility] [address] [facility] [place] [address] Care Team Providers Care [employer] Lease Pumper Name Role Phone PCP, PATIENT DOES NOT HAVE A Primary Care Physic chanda Unavailable Corinna Cooley Attending Clinician Un available SCOOTER BUCKLEY Attending Clinician Unavail able SCOOTER BUCKLEY Attending Clinician Unavail able Scooter Buckley MD Attending Clinician [phone] [facility] Eeg Attending Clinician Unavailable Doctor Unassigned, Perla Attending Clinician U Carlos Jenkins Admitting Clinician Unavailable SCOOTER BUCKLEY Admitting Clinician Unavail able Payers Payer Name Policy Type Policy Number Effective Date Expirati on Date Source [facility] [id number] 2020 00:00:00 Problems Condition Name Condition Details Condition Category Status Onset Date Resolution Date Last Treatment Date Treating Clinician Comments Source No known active problems No known active problems Disease [facility] Allergies, Adverse Reactions, Alerts Allergy Name Allergy Type Status Severity Reaction(s) Onset Date Inactive Date Treating Clinician Comments Source Sulfa (Sulfona mide Antibiot ics) DA Active SV 05-04 00:00: 00 [facility] tramadol DA Active SV 05-04 00:00: 00 [facility] levoflox acin DA Active SV 05-04 00:00: 00 [facility] Sulfa (Sulfona mide Antibiot ics) DA Active SV rash 05-04 00:00: 00 [facility] tramadol DA Active SV dont feel like my self 05-04 00:00: 00 [facility] levoflox acin DA Active SV rash 05-04 00:00: 00 [facility] LEVOFLOX ACIN DRUG INGREDI Active Unknown-Cmnt 02-04 00:00: 00 [facility] SULFA (SULFONA MIDE ANTIBIOT ICS) Drug Class Active Unknown-Cmnt 02-04 00:00: 00 [facility] Levoflox acin Propensi ty to adverse reaction s Active Unknown - See comments 02-04 00:00: 00 [facility] Sulfa (Sulfona mide Antibiot ics) Propensi ty to adverse reaction s Active Unknown - See comments 02-04 00:00: 00 [facility] Social History Social Habit Start Date Stop Date Quantity Comments Source Exposure to SARS-CoV-2 (event) Not sure [facility] Sex Assigned At 1975 00:00:00 1975 00:00:00 [facility] Smoking Status Start Date Stop Date Source Unknown if ever smoked [facility] Medications Ordered Medication Name Filled Medication Name Start Date Stop Date Current Medication? Ordering Clinician Indication Dosage Frequency Signature (SIG) Comments Components Source proMETHazin e 25 mg tablet 10-03 00:00: 00 Yes TAKE 1-2 TABLETS BY MOUTH EVERY 6 HOURS NEEDED FOR NAUSEA AND VOMITING [facility] ondansetron 8 mg disintegrat ing tablet 10-03 00:00: 00 Yes TAKE 1 TABLET BY MOUTH EVERY 8 HOURS NEEDED FOR NAUSEA AND VOMITING [facility] butalbital- acetaminoph en-caff 50-325-40 mg tablet 2-24 00:00: 00 Yes TAKE 1 TABLET BY MOUTH TWICE DAILY NEEDED [facility] lisinopriL 5 mg tablet 2022-0 2-17 00:00: 00 Yes 5mg Take 5 mg by mouth daily. [facility] levothyroxi ne 100 mcg tablet 09-21 00:00: 00 Yes TAKE 1 TABLET BY MOUTH EVERY MORNING ON AN EMPTY STOMACH [facility] gabapentin 600 mg tablet 09-21 00:00: 00 Yes 600mg Take 600 mg by mouth 2 (two) times daily. [facility] DULoxetine 30 mg capsule 09-21 00:00: 00 Yes 30mg Take 30 mg by mouth daily. [facility] fluconazole 150 mg tablet 09-08 00:00: 00 Yes [facility] amoxicillin -clavulanat e 875-125 mg per tablet 08-31 00:00: 00 Yes [facility] estradioL 1 mg tablet 08-17 00:00: 00 Yes [facility] cyclobenzap rine 5 mg tablet 08-16 00:00: 00 Yes [facility] methylPREDN ISolone 4 mg tablets 2020-08 00:00: 00 Yes [facility] cyclobenzap rine 10 mg tablet 2020-08 00:00: 00 Yes TAKE ONE TABLET BY MOUTH EVERY 12 HOURS NEEDED FOR MUSCLE SPAMS [facility] No known medications 02-04 21:46: 47 No [facility] Procedures Procedure Date / Time Performed Performing Clinicia n Source ASSIGNMENT OF BENEFITS 2021-10-06 14:17:55 Docto r Unassigned, Perla [facility] Encounters Start Date/Time End Date/Time Encounter Type Admission Type Attending Clinicians Care Facility Care Department Encounter ID Source 2020-05-04 11:00:00 Inpatient Corinna Addison [facility] [id number] 90 [facility] 2021-10-17 10:38:56 2021-10-17 23:59:00 Outpatient SCOOTER [facility] [id number] [facility] 2021-10-17 10:38:56 2021-10-17 23:59:00 Hospital Encounter Scooter Buckley [facility] Eeg HERMINIA TRAVIS ANNEX [id number] [facility] 2021-10-09 00:00:00 2021-10-09 00:00:00 Telephone Scooter Buckley [facility] [id number] [id number] [facility] 2021-10-06 08:40:00 2021-10-06 11:07:18 Outpatient SCOOTER WEINER [facility] [id number] [facility] 2021-10-06 00:00:00 2021-10-06 00:00:00 Orders Only Doctor Unassigned, Perla [facility] [id number] [facility] Results Test Description Test Time Test Comments Results Result Co mments Source SURG 2020-05-11 14:36:00 --------RUN DATE: 05/11/20 [facility] PAGE 1 RUN TIME: 1436 Specimen Inquiry RUN USER: INTERFACE --------PATIENT: MODESTO STEWART LOC: SINA U #: [id number] AGE/SX: 44/F ROOM: RE05/05/20[facility] DR: Corinna Cooley : 77 BED: DIS: STATUS: [facility] TLOC: -------- SPEC #: [id number] RECD: 05/06/20 STATUS: BIRGIT RE #: [id number] NIMCO: 05/05/[address]: Corinna Cooley MD ENTERED: 05/06/20 SP TYPE: SURG OTHR DR: Carlos Ji Jr, MD ORDERED: SURG PATH LVL 5 COPIES TO: Carlos Ji Jr, MD [address] [facility] [address] [place] [address] Corinna Cooley MD [address] [facility] [address] [place] [address] HISTOLOGY: TISSUE ID BLK PCS HENOK LEV PROCEDURE DISPOSITION ____ ___ ___ ___ UTERUS, NOS A 1 1 PROCEDURES: SURG PATH LVL 5 (05/06/20) TISSUES: A. UTERUS, NOS - UTERUS, CERVIX AND BILATERAL TUBES CLINICAL HISTORY PAIN - R10.2; ANEMIA - D50.9; EXCESSIVE/FREQUENT MENSES - N92.0 CPT CODES CPT CODE(S): 02910 , , , , , , FINAL DIAGNOSIS Uterus, cervix and bilateral fallopian tubes, hysterectomy and bilateral salpingectomy: CHRONIC CERVICITIS NABOTHIAN CYST ADENOMYOSIS BILATERAL FALLOPIAN TUBES WITH PARATUBAL CYSTS CONTINUED ON NEXT PAGE --------RUN DATE: 05/11/20 [facility] PAGE 2 RUN TIME: 1436 Specimen Inquiry RUN USER: INTERFACE --------SPEC #: [id number] PATIENT: MODESTO STEWART #[id number] (Continued) GROSS DESCRIPTION Uterus, cervix and bilateral [...] a patent lumen and is grossly unremarkable. Housing Specialist sections are submitted. ba/nr Section code: A1 Anterior cervix A2 Posterior cervix A3-A4 Anterior endometrium/myometriu m A5-A6 Posterior endometrium/myometriu m A7 Serosa (posterior cul-de-sac) A8 Fimbria - Longer fallopian tube A9 Cross-sections of Longer fallopian tube paratubal cyst A10 Fimbria - [place] fallopian tube A11 Cross-sections of [place] fallopian tube Grossing performed at [facility], [address] [place] [address], [address], [place] [address]. Dehairer: Alexey Song M.D. MICROSCOPIC DESCRIPTION Uterus, cervix and bilateral fallopian tubes. Sections demonstrate squamous ectocervix and glandular endocervix. Nabothian cysts and chronic cervicitis are identified. Sections of endometrium demonstrate secretory phase endometrium. The myometrium demonstrates adenomyosis. Sections of the fallopian demonstrate unremarkable fallopian tube with paratubal cysts. Signed SIGNATURE ON FILE Chip Zhang 05/11/20 1436 -------- END OF REPORT URINALYSIS [id number] 12:15:00* Test Item Value Reference Range Interpretation [...] NEGATIVE Urine Specimen Type: Clean CatchUR HCG [id number] 12:15:00* Test Item Value Reference Range Interpretation Comme nts UR HCG QUAL (test code = HCGQLU) NEGATIVE Urine Specimen Type: Clean CatchURINALYSIS [id number] 12:15:00* Test Item Value Reference Range Interpretation [...] NEGATIVE Urine Specimen Type: Clean CatchUR HCG [id number] 12:15:00* Test Item Value Reference Range Interpretation Comme nts UR HCG QUAL (test code = HCGQLU) NEGATIVE NEGATIVE Urine Specimen Type: Clean CatchCBC W/AUTO [id number] 12:11:00* Test Item Value Reference Range Interpretation [...] Notes Date/Time Note Provider Source 2020-05-05 16:57:00 [id number] [address] PATIENT NAME: MODESTO STEWART ADMIT DATE: 05/05/20 ACCOUNT NO: [id number] ROOM NO: AGE: 44 REPORT TYPE: OPERATIVE [...] bladder adhesions, cystoscopy. SURGEON: Corinna Cooley MD COURT ADVOCATE: Rigo Samano ANESTHESIA: General endotracheal. COMPLICATIONS: No [...] angles, tied outside the angle and 3 [id number] in the center for very good closure, [...] performed with 30-degree lens, normal saline, and 21-Spanish sheath. There was no evidence of any [...] condition. Dictated By: Corinna Cooley MD WT: OP:LANAMIKA/JAX/HORACIO Conf#: [id number]/DID#: [id number] Authenticated by Corinna Cooley MD On 05/26/2020 03:50:48 PM at 1551 PATIENT NAME: MODESTO STEWART [facility] 2020-05-05 16:41:00 [facility] ([facility] Brief Op Note REPORT#:[id number] REPORT STATUS: Signed DATE:05/05/20 TIME:164 PATIENT: MODESTO STEWART UNIT #: [id number] ROOM/BED: : 76 AGE: 44 SEX: F ATTEND: Corinna Cooley MD ADM AUTHOR: Corinna Cooley MD * ALL edits or amendments must be made on the electronic/computer document * Op/Inv Proc Note - Brief Pre-procedure diagnosis: pelvic pain AUB-O/A Post-procedure diagnosis: same as pre procedure dx, extensive bladder adhesions Procedures performed: TLH bilateral salpingectomy extensive lysis of bladder adhesions >50% time Primary Surgeon: samia Operating System Programmer(s): bradley lange Anesthesia: general anesthesia Findings: bladder adhesions to uterus, ovaries normal Complications: none Estimated blood loss in ml's: 50 Specimens removed/altered: uterus bilateral tubes Drain(s): None Urine output: 100 Approach: laparoscopic Wound class: clean-contaminated Disposition: plan to D/C home Dictation number: [id number] at 1659 RPT #: [id number] END OF REPORT [facility]
[2025-03-03 07:24] LABS: Absolute Lymphocytes (CBC) 0.4 K/uL (0.7-4.9); Hematocrit 40.9 % (36.0-45.0); Hemoglobin 14.1 g/dL (12.0-15.0); MCH 32.1 pg (27.0-35.0); MCHC 34.4 g/dL (32.0-36.0); MCV 93.2 fL (80-100); MPV 8.6 fL (7.6-11.3); Nucleated RBC Absolute Count 0.0 (0-0); Nucleated Red Blood Cells % 0.1 % (0-0); RBC Red Blood Cell Count 4.38 M/uL (3.86-4.86); White Blood Count 7.80 thou/uL (4.3-10.9)
[2025-03-03 07:29] LABS: PT Prothrombin Time 14.8 SECONDS (10-13.0); Protime INR 1.32
[2025-03-03] MEDS ORDERED: ONDANSETRON 4 MG/2 ML VIAL ONE (07:32)
[2025-03-03] MEDS ORDERED: ASPIRIN 81 MG CHEWABLE TABLET ONE (07:32)
[2025-03-03] MEDS ORDERED: MORPHINE 4 MG/ML SYR ONE (07:33)
[2025-03-03] MEDS ORDERED: FAMOTIDINE 20 MG/2 ML VIAL IV ONE (07:33)
[2025-03-03] MEDS ORDERED: NA CHLORIDE 0.9% 2,000 ML ONE (07:33)
--- NOTE | 2025-03-03 07:47 | RAD REPORT ---
EXAM: Angio Aorta For Dissection CLINICAL INDICATION: Female, 49 years ABD PAIN TECHNIQUE: CTA of the aorta was obtained including the chest, abdomen and pelvis, with IV contrast, a s per department protocol. Axial, sagittal and coronal reconstructions were obtained. Post-processing was applied at the acquisition scanner with concurrent physician supervision which in cludes 3D reconstructions, MIPs, volume rendered images and/or shaded surface rendering. One or more of the following dose reduction techniques were used: Automated exposure control, adjustment of the mA and/or kV according to the patient size, and/or iterative reconstruction. Unless otherwise specified, incidental findings do not require dedicated imaging follow-up. [id number]. COMPARISON: 06/25/2024 FINDINGS: ---THORAX--- LOWER NECK AND CHEST WALL: Visualized thyroid gland and soft tissues are normal. MEDIASTINUM AND LYMPH NODES: No mediastinal mass or fluid collection. Normal size mediastinal, hilar, and axillary lymph nodes. THORACIC AORTA: No thoracic aortic aneurysm. PULMONARY ARTERIES: Caliber is within normal limits. No pulmonary emboli identified. HEART: Normal heart size. Moderate coronary calcifications in the LAD.No significant pericardial effu sidney. LUNGS AND AIRWAYS: Airways are clear. No evidence of airspace or interstitial process. No suspicious and/or stable pulmonary nodules. PLEURA: No pleural effusion. No pneumothorax. ---ABDOMEN/PELVIS--- UPPER GI: No significant abnormality. LIVER: No significant focal abnormality. GALLBLADDER/BILE DUCTS: Cholecystectomy. Mild extra-hepatic biliary ductal dilatation is likely relat ed to the post-cholecystectomy state. Consider correlating with LFT's.? PANCREAS: No mass, ductal dilation, or cheryl-pancreatic fluid. SPLEEN: Unremarkable. ADRENALS: No adrenal masses. KIDNEYS AND URETERS: No hydronephrosis.No suspicious renal mass.No renal calculi.No ureteral calculi. ABDOMINAL AORTA AND OTHER VESSELS: Normal caliber aorta and IVC. PERITONEUM: No abnormal free fluid. No free air. LYMPH NODES: No pathologic lymphadenopathy. ABDOMINAL WALL: Unremarkable SMALL BOWEL/COLON: Mild diffuse colonic wall thickening. The ileum is also thickened and enhancing.No rmal appendix. URINARY BLADDER: Underdistended but grossly unremarkable. REPRODUCTIVE ORGANS: No pathologic process. ---COMBINED--- MUSCULOSKELETAL: No acute or suspicious osseous abnormality. ADDITIONAL FINDINGS: None. IMPRESSION: No aortic aneurysm or dissection. No pulmonary embolus. Findings consistent with enterocolitis. Coronary artery disease with moderate LAD calcifications.
--- NOTE | 2025-03-03 07:51 | RAD REPORT ---
EXAM: Chest Single View HISTORY: 49 years Female PAIN COMPARISON: No prior exams FINDINGS: LUNGS/PLEURA: The lungs are clear. No pleural effusions or pneumothorax. No pulmonary edema. CARDIAC/MEDIASTINUM: The cardiac silhouette is within normal limits. UPPER ABDOMEN: No significant abnormality. BONES: No acute abnormality. LINES/TUBES/OTHER: N/A IMPRESSION: No evidence of acute cardiopulmonary disease.
[2025-03-03 07:55] LABS: ALT/SGPT 20 U/L (13-56); AST/SGOT 24 U/L (15-37); Albumin 3.9 g/dL (3.4-5.0); Albumin/Globulin Ratio 1.1 (1.1-1.8); Alkaline Phosphatase 71 U/L (45-117); Anion Gap 13.7 mEq/L (5.0-15.0); BUN Blood Urea Nitrogen 10 mg/dL (7-18); Globulin 3.5 g/dL (2.3-3.5); Glucose Level 188 mg/dL (74-106); Lipase 31 U/L (13-75); Magnesium 1.3 mg/dL (1.6-2.4); NT PRO-BNP 326 pg/mL (<125); Potassium 2.7 mEq/L (3.5-5.1); Troponin High Sensitivity 7.6 pg/mL (<58.9)
[2025-03-03 07:56] LABS: Bilirubin Indirect, Calculated 0.2 mg/dL (0.2-0.8)
[2025-03-03] MEDS ORDERED: CEFTRIAXONE 1000 MG/VIAL ONE (08:00)
[2025-03-03 08:58] LABS: Urine Microscopic Reflex YN NO UMIC
[2025-03-03 09:10] LABS: Blood Morphology Comment NOT SEEN (NOT SEEN); Differential Total Cells Count 100; Segmented Neutrophils 77 % (40-80)
--- NOTE | 2025-03-03 09:24 | EDPHYS ---
Physician Documentation [facility] Name: Stephanie Espinoza Age: 49 yrs Sex: Female : 1975 Arrival Date: 03/03/2025 Time: 06:33 Bed 6 Private MD: ED Physician Seven Hung HPI: 03/03 07:01 This 49 yrs old Female presents to ER via Ambulatory with complaints of brittany Nausea/Vomiting/Diarrhea, Fever, Weakness. 07:01 The patient presents to the emergency department with nausea, vomiting. Onset: The brittany symptoms/episode began/occurred 2 day(s) ago. Possible causes: unknown. 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 - Infectious Disease History:: Denies. - Social history:: Smoking status: Patient denies any tobacco usage or history of. ROS: 07:04 Constitutional: Negative for fever, chills, and weight loss, Eyes: Negative for injury, brittany pain, redness, and discharge, ENT: Negative for injury, pain, and discharge, Neck: Negative for injury, pain, and swelling, Respiratory: Negative for shortness of breath, cough, wheezing, and pleuritic chest pain, Back: Negative for injury and pain, : Negative for injury, bleeding, discharge, and swelling, MS/Extremity: Negative for injury and deformity, Skin: Negative for injury, rash, and discoloration, Neuro: Negative for headache, weakness, numbness, tingling, and seizure, Psych: Negative for depression, anxiety, suicide ideation, homicidal ideation, and hallucinations, Allergy/Immunology: Negative for hives, rash, and allergies, Endocrine: Negative for neck swelling, polydipsia, polyuria, polyphagia, and marked weight changes, Hematologic/Lymphatic: Negative for swollen nodes, abnormal bleeding, and unusual bruising, 07:04 Constitutional: Positive for fatigue, malaise, 07:04 Cardiovascular: Positive for chest pain, of the chest, 07:04 Abdomen/GI: Positive for abdominal pain, nausea and vomiting, diarrhea, abdominal cramps, 07:04 MS/extremity: Negative for acute changes, Exam: 07:04 Constitutional: This is a well developed, well nourished patient who is awake, alert, brittany and in no acute distress. Head/Face: Normocephalic, atraumatic. Eyes: Pupils equal round and reactive to light, extra-ocular motions intact. Lids and lashes normal. Conjunctiva and sclera are non-icteric and not injected. Cornea within normal limits. Periorbital areas with no swelling, redness, or edema. ENT: Nares patent. No nasal discharge, no septal abnormalities noted. Tympanic membranes are normal and external auditory canals are clear. Oropharynx with no redness, swelling, or masses, exudates, or evidence of obstruction, uvula midline. Mucous membranes moist. Neck: Trachea midline, no thyromegaly or masses palpated, and no cervical lymphadenopathy. Supple, full range of motion without nuchal rigidity, or vertebral point tenderness. No Meningismus. Chest/axilla: Normal chest wall appearance and motion. Nontender with no deformity. No lesions are appreciated. Respiratory: Lungs have equal breath sounds bilaterally, clear to auscultation and percussion. No rales, rhonchi or wheezes noted. No increased work of breathing, no retractions or nasal flaring. Back: No spinal tenderness. No costovertebral tenderness. Full range of motion. Skin: Warm, dry with normal turgor. Normal color with no rashes, no lesions, and no evidence of cellulitis. MS/ Extremity: Pulses equal, no cyanosis. Neurovascular intact. Full, normal range of motion., bilateral aka Neuro: Awake and alert, GCS 15, oriented to person, place, time, and situation. Cranial nerves II-XII grossly intact. Motor strength 5/5 in all extremities. Sensory grossly intact. Cerebellar exam normal. Normal gait. Psych: Awake, alert, with orientation to person, place and time. Behavior, mood, and affect are within normal limits. 07:04 Chest/axilla: Inspection: normal, Palpation: is normal, Axilla: are normal, Breasts: are normal, Lymph nodes: lymphadenopathy is not appreciated, 07:04 ECG was reviewed by the Attending Physician. Vital Signs: 06:51 BP 151 / 88; Pulse 134; Resp 20; Temp 98.6(O); Pulse Ox 100% on R/A; Weight 62.6 kg; al5 Height 5 ft. 4 in. ; Pain 10/10; 07:03 BP 128 / 80; Pulse 108; Resp 16; Pulse Ox 98% ; bp 08:51 BP 131 / 81; Pulse 81; Resp 17 S; Pulse Ox 100% on R/A; kc6 11:00 BP 129 / 70; Pulse 98; Resp 21; Pulse Ox 99% ; bp 13:00 BP 144 / 62; Pulse 109; Resp 22; Pulse Ox 100% ; bp 06:51 Body Mass Index 23.69 (62.60 kg, 162.56 cm) al5 06:51 Pain Scale: Adult al5 MDM: 06:39 Medical Screening Exam initiated brittany 07:14 Differential diagnosis: gastritis, viral gastroenteritis, gastroenteritis, bacterial brittany infection, URI. Differential Diagnosis sepsis, flu. HEART Score: History: Moderately Suspicious (1), ECG: Non specific repolarization disturbance / LBTB / PM (1), Age: > 45 and < 65 years (1), Risk Factors: 1 or 2 risk factors (1), [+ Family HX]. The patient was given aspirin in the Emergency Department. Data reviewed: vital signs, nurses notes, lab test result(s), EKG, radiologic studies, CT scan, plain films. Independent interpretation of the following test(s) in the Emergency Department EKG: See my EKG interpretation above. 09:22 Counseling: I had a detailed discussion with the patient and/or guardian regarding the rn historical points, exam findings, and any diagnostic results supporting the discharge/admit diagnosis, lab results, radiology results, the need for further work-up and treatment in the hospital. Response to treatment: the patient's symptoms have mildly improved after treatment, and as a result, I will admit patient. ED course: CT showing enterocolitis, patient still having intermittent chest pain with nausea. ECG shows ST depressions in inferior lateral leads. Consulted will Dr. Cook and will consult on patient. Will admit to hospitalist service.. 03/03 06:53 Order name: Basic Metabolic Panel; Complete Time: 07:57 brittany 03/03 06:53 Order name: CBC with Diff; Complete Time: 09:18 [facility] 03/03 06:53 Order name: LFT's; Complete Time: 07:57 [facility] 03/03 06:53 Order name: Magnesium; Complete Time: 07:57 [facility] 03/03 06:53 Order name: NT PRO-BNP; Complete Time: 07:57 [facility] 03/03 06:53 Order name: PT-INR; Complete Time: 07:57 [facility] 03/03 06:53 Order name: Troponin HS; Complete Time: 07:57 [facility] 03/03 06:53 Order name: Lipase; Complete Time: 07:57 [facility] 03/03 06:53 Order name: UA Rfx Rylan Cult if indicated; Complete Time: 09:05 [facility] 03/03 06:53 Order name: Blood Culture Adult (2) [facility] 03/03 06:53 Order name: Lactate w/ 2H reflex if indic.; Complete Time: 07:57 [facility] 03/03 07:41 Order name: Fecal Leukocyte Stain [facility] 03/03 07:41 Order name: Stool Culture [facility] 03/03 07:43 Order name: Ghost Lactate-NO COLLECT Timer [facility] 03/03 09:11 Order name: Manual Differential; Complete Time: 09:18 [facility] 03/03 09:32 Order name: Lactate w/ 2H reflex if indic. [facility] 03/03 09:32 Order name: Magnesium [facility] 03/03 09:32 Order name: Phosphorus [facility] 03/03 09:32 Order name: Protime (+INR) [facility] 03/03 09:32 Order name: PTT, Activated Partial Thromb [facility] 03/03 09:32 Order name: CBC with Automated Diff ED[facility] 03/03 09:32 Order name: CBC with Automated Diff [facility] 03/03 09:32 Order name: Comprehensive Metabolic Panel [facility] 03/03 09:32 Order name: Comprehensive Metabolic Panel ED[facility] 03/03 09:32 Order name: Troponin High Sensitivity [facility] 03/03 09:32 Order name: Troponin High Sensitivity EDMS 03/03 09:32 Order name: Troponin High Sensitivity EDMS 03/03 09:32 Order name: Troponin High Sensitivity EDMS 03/03 09:32 Order name: Troponin High Sensitivity EDMS 03/03 10:36 Order name: Phosphorus EDMS 03/03 10:36 Order name: Magnesium EDMS 03/03 10:36 Order name: Lactate Sepsis 2 HR Follow-up EDMS 03/03 06:53 Order name: XRAY Chest (1 view); Complete Time: 07:57 [facility] 03/03 06:53 Order name: CT Aorta for Dissection; Complete Time: 07:57 [facility] 03/03 09:32 Order name: Echo with Doppler [facility] 03/03 06:53 Order name: Cardiac monitoring; Complete Time: 07:04 [facility] 03/03 06:53 Order name: EKG - Nurse/Tech; Complete Time: 07:04 [facility] 03/03 06:53 Order name: IV Saline Lock; Complete Time: 07:04 [facility] 03/03 06:53 Order name: Labs collected and sent; Complete Time: 07:04 [facility] 03/03 06:53 Order name: O2 Per Protocol; Complete Time: 07:04 [facility] 03/03 06:53 Order name: O2 Sat Monitoring; Complete Time: 07:04 [facility] EC:04 Rate is 117 beats/min. Rhythm is regular. QRS [place] is Normal. OK interval is normal. brittany QRS interval is normal. QT interval is normal. No Q waves. T waves are Normal. No ST changes noted. Clinical impression: Sinus tachycardia. Interpreted by me. Reviewed by me. Administered Medications: 06:59 CANCELLED (Duplicate Order): aspirinchewable tablet 81 mg PO once [facility] 07:30 Drug: Aspirin PO Chewable Tablet 324 mg PO once; 81 mg tablets x 4 Route: PO; bp 13:44 Follow up: Response: No adverse reaction bp 07:44 Drug: morphine IVP or IV 2 mg IVP once over 4 mins Route: IVP; Infused Over: 4 mins; bp Site: right forearm; 13:44 Follow up: Response: No adverse reaction bp 07:44 Drug: morphine IVP or IV 2 mg IVP once over 4 mins Route: IVP; Infused Over: 4 mins; bp Site: right forearm; 13:44 Follow up: Response: No adverse reaction bp 07:45 Drug: NS 0.9% IV (30 ml/kg) 30 ml/kg IV at bolus once; Sepsis Protocol; to be given as bp a bolus over 90 minutes Route: IV; Rate: bolus; Site: right forearm; 13:44 Follow up: IV Status: Completed infusion bp 07:45 Drug: Famotidine IVP 20 mg IVP once; dilute with 10 mL 0.9% NaCl; give over 2 minutes bp Route: IVP; Site: right forearm; 13:44 Follow up: Response: No adverse reaction bp 07:45 Drug: Ondansetron IVP 8 mg IVP once; over 2 minutes Route: IVP; Site: right forearm; bp 13:44 Follow up: Response: No adverse reaction bp 07:58 Not Given (Duplicate Order): Heparin ([place]-Bolus No thrombolytic) - [id number] units/kg rn IVP once; Max 5000 units 07:58 Not Given (Duplicate Order): Heparin ([place] Drip) - ([id number] units, m0l109 ml) 12 rn units/kg/hr IV at calculated rate Per protocol; Max initial rate 1000 units/hr 07:58 Not Given (Duplicate Order): [id number] mg PO once rn 08:04 Drug: Rocephin IV 1 grams IV at per protocol once; Given slow IV push per pharmacy bp instructions Route: IV; Rate: per protocol; Site: right forearm; 13:43 Follow up: IV Status: Completed infusion bp 09:26 Not Given (Duplicate Order): ondansetron 4 mg IVP once; over 2 minutes rn 09:41 Drug: Promethazine IM 12.5 mg IM once Route: IM; Site: affected area; bp 13:43 Follow up: Response: No adverse reaction bp Disposition Summary: 03/03/25 09:24 Hospitalization Ordered Notes: Hospitalization Status: Observation rn Provider: Prince Karthikeyan rn Condition: Stable rn Problem: new rn Symptoms: have improved rn Bed/Room Type: Standard rn Location: Telemetry/MedSurg (Inpatient)(03/03/25 17:04) [facility] Room Assignment: [facility](03/03/25 17:04) [facility] Diagnosis - Chest pain, unspecified rn - Infectious gastroenteritis and colitis, unspecified rn Forms: - Medication Reconciliation Form rn - SBAR form rn - Leadership Thank You Letter rn Signatures: Dispatcher [employer] EDMS Zayda Stiles Corey, MD MD cha Nieto, Roman, MD MD rn Blanchard, Shelby, RN RN Alan Stewart RN RN Kori Pretty 6 Rochelle Mccollum RN RN al5 Corrections: (The following items were deleted from the chart) 06:54 06:54 BASIC METABOLIC PANEL+C.LAB.BRZ ordered. EDMS EDMS 06:54 06:54 CBC+H.LAB.BRZ ordered. EDMS EDMS 06:54 06:54 HEPATIC FUNCTION+C.LAB.BRZ ordered. EDMS EDMS 06:54 06:54 MAGNESIUM+C.LAB.BRZ ordered. EDMS EDMS 06:54 06:54 PROBNP+C.LAB.BRZ ordered. EDMS EDMS 06:54 06:54 PROTIME (+INR)+COAG.LAB.BRZ ordered. EDMS EDMS 06:54 06:54 Troponin High Sensitivity+C.LAB.BRZ ordered. EDMS EDMS 06:54 06:54 LIPASE+C.LAB.BRZ ordered. EDMS EDMS 06:54 06:54 UA Rfx Rylan Cult if indicated+U.LAB.BRZ ordered. EDMS EDMS 06:54 06:54 BLOOD CULTURE*+BA.LAB.BRZ ordered. EDMS EDMS 06:54 06:54 LACTATE+C.LAB.BRZ ordered. EDMS EDMS 06:54 06:54 Chest Single View+RAD.RAD.BRZ ordered. EDMS EDMS 06:54 06:54 Angio Aorta For Dissection+CT.RAD.BRZ ordered. EDMS EDMS 06:59 06:53 Aspirin PO Chewable Tablet 81 mg PO once ordered. brittany brittany 11:15 09:24 Telemetry/MedSurg (observation) rn bd 11:15 09:24 rn bd 13:15 11:15 [facility] ER HOLD bd bd 13:15 11:15 ERHOLD- bd bd 14:10 13:15 Telemetry/MedSurg (observation) bd bc6 14:10 13:15 413 bd bc6 14:35 14:10 [facility] ER HOLD bc6 ss 14:35 14:10 bc6 ss 14:37 14:35 Telemetry/MedSurg (observation) ss bc6 14:37 14:35 222 ss bc6 16:38 14:37 bc6 bp 16:56 14:37 [facility] ER HOLD bc6 ss 16:56 16:38 ERHOLD- bp ss 16:56 16:56 Telemetry/MedSurg (observation) ss bc6 16:56 16:56 222 ss bc6 17:04 16:56 [facility] ER HOLD bc6 bc6 17:04 16:56 bc6 bc6
--- NOTE | 2025-03-03 09:24 | ER ---
Nurse's Notes [facility] Name: Stephanie Espinoza Age: 49 yrs Sex: Female : 1975 Arrival Date: 03/03/2025 Time: 06:33 Bed 6 Private MD: Diagnosis: Chest pain, unspecified;Infectious gastroenteritis and colitis, unspecified Presentation: 03/03 06:51 Chief complaint: Patient states: states she was here last night for chest pain, was al5 given medications and discharged home. since then, patient has been experiencing n/v/d, weakness and fever. Coronavirus screen: At this time, the client does not indicate any symptoms associated with coronavirus-19. Ebola Screen: No symptoms or risks identified at this time. Initial Sepsis Screen: Does the patient meet any 2 criteria? HR > 90 bpm. Does the patient have a suspected source of infection? No. Patient's initial sepsis screen is negative. Risk Assessment: Do you want to hurt yourself or someone else? Patient reports no desire to harm self or others. Onset of symptoms was March 03, 2025. 06:51 Method Of Arrival: Ambulatory al5 06:51 Acuity: AI 3 al5 Triage Assessment: 06:52 General: Appears in no apparent distress. uncomfortable, ill, well groomed, well al5 developed, Behavior is calm, cooperative, fussy. Pain: Complains of pain in epigastric area and umbilical area Pain currently is 10 out of 10 on a pain scale. EENT: No signs and/or symptoms were reported regarding the EENT system. Neuro: Level of Consciousness is awake, alert, obeys commands, Oriented to person, place, time, situation. Cardiovascular: Capillary refill < 3 seconds Patient's skin is warm and dry. Respiratory: Airway is patent Respiratory effort is even, unlabored, Respiratory pattern is regular, symmetrical. GI: Abdomen is flat, non-distended, Abd is soft X 4 quads Abdomen is tender to palpation in epigastric area, umbilical area, right lower quadrant and left lower quadrant Reports lower abdominal pain, upper abdominal pain, diarrhea, nausea, vomiting. : No signs and/or symptoms were reported regarding the genitourinary system. Derm: Skin is intact, is healthy with good turgor, Skin is pink, warm \T\ dry. normal. Musculoskeletal: No signs and/or symptoms reported regarding the musculoskeletal system. Circulation, motion, and sensation intact. Range of motion: intact in all extremities. 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 - Infectious Disease History:: Denies. - Social history:: Smoking status: Patient denies any tobacco usage or history of. Screenin:55 [facility] ED Fall Risk Assessment (Adult) History of falling in the last 3 months, al5 including since admission No falls in past 3 months (0 pts) Confusion or Disorientation No (0 pts) Intoxicated or Sedated Impaired Gait No (0 pts) Mobility Assist Device Used No (0 pt) Altered Elimination No (0 pt) Score/Fall Risk Level 0 - 2 = Low Risk Oriented to surroundings, Maintained a safe environment, Hourly rounding (assess needs \T\ fall precautionary measures) done. Abuse screen: Denies threats or abuse. Denies injuries from another. Nutritional screening: No deficits noted. Tuberculosis screening: No symptoms or risk factors identified. Assessment: 06:55 Reassessment: see triage assessment. al5 07:03 Reassessment: No changes from previously documented assessment. Patient is alert, bp oriented x 3, equal unlabored respirations, skin warm/dry/pink. 07:39 GI: Pt is actively vomiting. kc6 Vital Signs: 06:51 BP 151 / 88; Pulse 134; Resp 20; Temp 98.6(O); Pulse Ox 100% on R/A; Weight 62.6 kg; al5 Height 5 ft. 4 in. ; Pain 10/10; 07:03 BP 128 / 80; Pulse 108; Resp 16; Pulse Ox 98% ; bp 08:51 BP 131 / 81; Pulse 81; Resp 17 S; Pulse Ox 100% on R/A; kc6 11:00 BP 129 / 70; Pulse 98; Resp 21; Pulse Ox 99% ; bp 13:00 BP 144 / 62; Pulse 109; Resp 22; Pulse Ox 100% ; bp 06:51 Body Mass Index 23.69 (62.60 kg, 162.56 cm) al5 06:51 Pain Scale: Adult al5 ED Course: 06:38 Patient arrived in ED. [email or web address] 06:39 Ryder Harding MD is Attending Physician. brittany 06:52 Triage completed. al5 06:52 Arm band placed on right wrist. Patient placed in the treatment room, in view of staff al5 members, on cardiac cath lab radiology technologist, on pulse oximetry. 06:55 Patient has correct armband on for positive identification. Bed in low position. Call al5 light in reach. Side rails up X 1. Provided Education on: plan of care. 06:55 No provider procedures requiring assistance completed. Inserted saline lock: 22 gauge al5 in left antecubital area, using aseptic technique. Blood collected. Flushed with 10 mL NS. 07:03 Alan Mistry, RN is Primary Nurse. bp 07:21 CT Aorta for Dissection In Process Unspecified. EDMS 07:25 XRAY Chest (1 view) In Process Unspecified. EDMS 07:59 Attending Physician role handed off by Ryder Harding MD rn 07:59 Seven Hung MD is Attending Physician. rn 09:23 Prince Napier MD is Hospitalizing Provider. rn 13:42 Patient admitted, IV remains in place. bp Administered Medications: 06:59 CANCELLED (Duplicate Order): aspirinchewable tablet 81 mg PO once brittany 07:30 Drug: Aspirin PO Chewable Tablet 324 mg PO once; 81 mg tablets x 4 Route: PO; bp 13:44 Follow up: Response: No adverse reaction bp 07:44 Drug: morphine IVP or IV 2 mg IVP once over 4 mins Route: IVP; Infused Over: 4 mins; bp Site: right forearm; 13:44 Follow up: Response: No adverse reaction bp 07:44 Drug: morphine IVP or IV 2 mg IVP once over 4 mins Route: IVP; Infused Over: 4 mins; bp Site: right forearm; 13:44 Follow up: Response: No adverse reaction bp 07:45 Drug: NS 0.9% IV (30 ml/kg) 30 ml/kg IV at bolus once; Sepsis Protocol; to be given as bp a bolus over 90 minutes Route: IV; Rate: bolus; Site: right forearm; 13:44 Follow up: IV Status: Completed infusion bp 07:45 Drug: Famotidine IVP 20 mg IVP once; dilute with 10 mL 0.9% NaCl; give over 2 minutes bp Route: IVP; Site: right forearm; 13:44 Follow up: Response: No adverse reaction bp 07:45 Drug: Ondansetron IVP 8 mg IVP once; over 2 minutes Route: IVP; Site: right forearm; bp 13:44 Follow up: Response: No adverse reaction bp 07:58 Not Given (Duplicate Order): Heparin ([place]-Bolus No thrombolytic) - [id number] units/kg rn IVP once; Max 5000 units 07:58 Not Given (Duplicate Order): Heparin ([place] Drip) - ([id number] units, p4s616 ml) 12 rn units/kg/hr IV at calculated rate Per protocol; Max initial rate 1000 units/hr 07:58 Not Given (Duplicate Order): mg PO once rn 08:04 Drug: Rocephin IV 1 grams IV at per protocol once; Given slow IV push per pharmacy bp instructions Route: IV; Rate: per protocol; Site: right forearm; 13:43 Follow up: IV Status: Completed infusion bp 09:26 Not Given (Duplicate Order): ondansetron 4 mg IVP once; over 2 minutes rn 09:41 Drug: Promethazine IM 12.5 mg IM once Route: IM; Site: affected area; bp 13:43 Follow up: Response: No adverse reaction bp Medication: 06:55 VIS not applicable for this client. al5 Outcome: 09:24 Decision to Hospitalize by Provider. rn 13:42 Admitted to ER Hold. Please see [facility] for further documentation. bp 13:42 Condition: stable 13:42 Instructed on the need for admit, 18:37 Patient left the ED. bp Signatures: Dispatcher [employer] EDRyder Barfield MD MD cha Nieto, Roman, MD MD rn Peltier, Brian, RN RN Orquidea Mc Kaitlyn, RN RN [id number] Rochelle Mccollum RN RN al5
[2025-03-03] MEDS ORDERED: IPRATROPIUM BROM 0.5MG/2.5ML NEB PRN (09:27)
[2025-03-03] MEDS ORDERED: NITROGLYCERIN 0.4 MG/TAB SL PRN (09:27)
[2025-03-03] MEDS ORDERED: ALBUTEROL 2.5 MG/3 ML NEB SOL NEB PRN (09:27)
[2025-03-03] MEDS ORDERED: PROMETHAZINE INJ 25 MG/ML AMP ONE (09:28)
--- NOTE | 2025-03-03 09:34 | P.HP ---
Certification for Inpatient Patient admitted to: Observation With expected LOS: <2 Midnights Practitioner: I am a practitioner with admitting privileges, knowledge of patient current condition, hospital course, and medical plan of care. Services: Services provided to patient in accordance with Admission requirements found in Title 42 Section 412.3 of the Code of Federal Regulations Patient History Date of Service: 03/03/25 Reason for admission: Chest pain/enterocolitis History of Present Illness: Patient is a 49-year-old female currently on her second visit to the ER for ch est pain. She returned to the ER complaining of chest and abdominal pain and vomiting. Her troponin is negative. EKG shows ST depression in inferior and lateral leads. CT chest revealed enterocolitis. Patient has a history of migraine headache and hypothyroidism. Otherwise, no significant cardiopulmonary disease. Her basic labs are unremarkable except for lactic acid of 2.5. Allergies levofloxacin [From Levaquin] Allergy (Verified 12/31/19 22:22) Rash Sulfa (Sulfonamide Antibiotics) Allergy (Verified 12/31/19 22:22) unknown tramadol Adverse Reaction (Verified 12/31/19 22:23) "makes me crazy" Home Medications: Butalb/Acetaminophen/Caffeine [Dgtrsa-Kgfzwrjs-Hvhd 50-325-40] 1 tab PO BID 12/31/19 Levothyroxine Sodium [Levothyroxine] 100 mcg PO DAILY 11/15/20 - Past Medical/Surgical History Diabetic: No -: migraines -: hypothyroidism -: -: cholecystectomy - Social History Alcohol use: No CD- Drugs: Yes Caffeine use: Yes Physical Examination - Physical Exam General: Acute distress HEENT: Atraumatic, Normocephalic Respiratory: Clear to auscultation bilaterally, Normal air movement Cardiovascular: No edema, Normal pulses, Regular rate/rhythm, Normal S1 S2 Gastrointestinal: Soft and benign, Non-distended, Tenderness Neurological: Normal speech - Studies Laboratory Data (last 24 hrs) 03/03/25 03/03/25 03/03/25 07:15 07:15 07:15 WBC 7.80 Hgb 14.1 Hct 40.9 Plt Count 183 PT 14.8 H INR 1.32 Sodium 136 Potassium 2.7 L D BUN 10 Creatinine 1.08 H Glucose 188 H Magnesium 1.3 L Total Bilirubin 0.4 AST 24 ALT 20 Alkaline Phosphatase 71 Lipase 31 Assessment and Plan - Plan Assessment 49-year-old female who returns to the hospital complaining of chest pain. First troponin is negative. EKG shows ST depression in inferior and lateral leads. CT reveals coronary artery disease with moderate LAD calcification. Additional findings on CT scan show enterocolitis. Chest pain Coronary artery disease with moderate LAD calcificationsas per CT scan Enterocolitis Lactic acidosis Hypokalemia Hypothyroidism Plan: Will admit under observation with telemetry Trend troponin and EKG 2D echo and cardiology consult Replace potassium Check magnesium level Continuous IV fluid infusion and empiric antibiotics with Zosyn Trend lactic acid Antiemetics and GI prophylaxis DVT prophylaxis - Advance Directives Does patient have a Living Will: No Does patient have a Durable POA for Healthcare: No
[2025-03-03] MEDS: PIPER TAZO 3.375 GM in NA CHLORIDE 0.9% 100 ML IV SCH (09:50)
[2025-03-03] MEDS: NA CHLORIDE 0.9% 1,000 ML IV SCH (10:00)
[2025-03-03] MEDS: KCL 20 MEQ/100 mL IVPB 100 ML IV SCH (10:00)
[2025-03-03 10:20] LABS: PT Prothrombin Time 14.3 SECONDS (10-13.0); PTT, Activated Partial Thromb 23.4 SECONDS (27.2-37.4); Protime INR 1.27
[2025-03-03 10:36] LABS: Magnesium 1.4 mg/dL (1.6-2.4); Troponin High Sensitivity 11.5 pg/mL (<58.9)
[2025-03-03] MEDS ORDERED: NA CHLORIDE 0.9% 100 ML ONE ×2 (12:19→17:28)
[2025-03-03] MEDS ORDERED: NA CHLORIDE 0.9% 1,000 ML ONE (12:19)
[2025-03-03] MEDS ORDERED: KCL 20 MEQ/100 mL IVPB 200 ML IV ONE (12:19)
[2025-03-03] MEDS ORDERED: PIPERACIL/TAZO 3.375 GM VIAL IV ONE ×2 (12:20→17:28)
[2025-03-03 12:49] VITALS: BMI 23.6
[2025-03-03] MEDS: Magnesium Sulfate 2gm IVPB 2 G/50 ML BAG IV ONE (17:07)
[2025-03-03] MEDS ORDERED: Magnesium Sulfate 2gm IVPB 2 G/50 ML BAG IV ONE (17:28)
[2025-03-03] MEDS ORDERED: ACETAMINOPHEN 325 MG TABLET ONE (17:28)
[2025-03-03] MEDS: ACETAMINOPHEN 325 MG TABLET PO PRN (17:30)
[2025-03-03] MEDS: ONDANSETRON 4 MG/2 ML VIAL IV PRN (19:37)
[2025-03-03] MEDS: MORPHINE 2 MG/ML SYR IV PRN (20:13)
[2025-03-03] MEDS: ACETAMINOPHEN 325 MG TABLET PO ONE (22:28)
[2025-03-03] MEDS: KETOROLAC 30 MG/ML INJ IV ONE (22:48)
[2025-03-03] MEDS: KCL 20 MEQ/100 mL IVPB 20 MEQ/100 ML BAG IV SCH (22:49)
[2025-03-04] MEDS ORDERED: ACETAMIN/CAFFEINE/BUTALB TAB PO PRN (06:40)
[2025-03-04] MEDS ORDERED: HOME MED 1 EA UNK (Magnesium Oxide [Magnesium] 250 MG Tablet) PO SCH (09:00)
[2025-03-04] MEDS: VITAMIN D 1000 UNIT TAB PO SCH (09:00)
[2025-03-04 09:16] LABS: Absolute Lymphocytes (CBC) 0.3 K/uL (0.7-4.9); Hematocrit 36.4 % (36.0-45.0); Hemoglobin 12.4 g/dL (12.0-15.0); MCH 32.0 pg (27.0-35.0); MCHC 34.2 g/dL (32.0-36.0); MCV 93.4 fL (80-100); MPV 8.4 fL (7.6-11.3); Nucleated RBC Absolute Count 0.0 (0-0); Nucleated Red Blood Cells % 0.1 % (0-0); RBC Red Blood Cell Count 3.89 M/uL (3.86-4.86); White Blood Count 4.50 thou/uL (4.3-10.9)
[2025-03-04] MEDS: THYROID 30 MG TAB PO SCH (09:29)
[2025-03-04] MEDS: LEVOTHYROXINE SOD 0.05 MG TABLET PO SCH (09:29)
[2025-03-04] MEDS: ASPIRIN EC 81 MG TAB PO SCH (09:30)
[2025-03-04] MEDS: MAGNESIUM OXIDE 400 MG TAB PO SCH (09:30)
[2025-03-04] MEDS: ENOXAPARIN 40 MG/0.4 ML SQ SCH (09:30)
[2025-03-04 09:35] LABS: ALT/SGPT 17.0 U/L (13-56); AST/SGOT 23.0 U/L (15-37); Albumin 3.0 g/dL (3.4-5.0); Albumin/Globulin Ratio 1.0 (1.1-1.8); Alkaline Phosphatase 49.0 U/L (45-117); Anion Gap 10.5 mEq/L (5.0-15.0); BUN Blood Urea Nitrogen 8.0 mg/dL (7-18); Globulin 3.1 g/dL (2.3-3.5); Glucose Level 79.0 mg/dL (74-106); Magnesium 1.7 mg/dL (1.6-2.4); Potassium 3.5 mEq/L (3.5-5.1); Troponin High Sensitivity 13.0 pg/mL (<58.9)
--- NOTE | 2025-03-04 09:37 | P.PN ---
Subjective Date of Service: 03/04/25 Chief Complaint: Chest pain/enterocolitis Subjective: No new changes (Patient continues to have abdominal pain and diarrhea. She spiked a fever of 103 degrees yesterday afternoon. She is unable to tolerate oral fluid.) Physical Examination - Vital Signs Temperature: 99.2 F Blood Pressure: 135/74 Pulse: 98 Respirations: 24 Pulse Ox (%): 98 - Physical Exam General: Acute distress HEENT: Atraumatic, Normocephalic Respiratory: Other (Speaking in full sentences) Neurological: Normal speech Assessment And Plan - Plan Assessment 49-year-old female who returns to the hospital complaining of chest pain. First troponin is negative. EKG shows ST depression in inferior and lateral leads. CT reveals coronary artery disease with moderate LAD calcification. Additional findings on CT scan show enterocolitis. She is still having nausea, vomiting and diarrhea. Chest pain Coronary artery disease with moderate LAD calcificationsas per CT scan Enterocolitisrule out sepsis Hypoglycemia Lactic acidosisresolved Hypokalemia Hypothyroidism Plan: Change normal saline to D5 base infusion due to hypoglycemia and poor oral inta ke Continue supportive care with Zosyn and IV fluid infusion Currently on clear liquid diet. Advance diet as tolerated Continue PPI and antiemetics Replace electrolytes as needed Follow stool cultures due to persistent fever 2D echo and cardiology consult DVT prophylaxis
[2025-03-04] MEDS: D5 0.9 NS 1,000 ML IV SCH (09:38)
[2025-03-04 11:09] LABS: Thyroid Stimulating Hormone 2.91 uIU/mL (0.358-3.740)
[2025-03-04] MEDS: ESZOPICLONE 1 MG TAB PO SCH (20:21)
--- NOTE | 2025-03-04 21:28 | CON ---
Date of Consultation: 03/04/2025 Reason For Consultation: Chest pain. History Of Present Illness: A 49-year-old female, history of migraine, presented to the emergency ro om with chest pain retrosternal, no radiation. Mild dyspnea on exertion, but then she started having abdominal pain, nausea, vomiting, and some diarrhea. At the present time, she said her chest pain i s completely resolved. No known history of cardiac disease. Past Medical History: Migraine, hypothyroidism. Past Surgical History: and cholecystectomy. Medications: Refer to reconciliation sheet for detailed list. Allergies: LEVAQUIN AND SULFA. Family History: No premature coronary artery disease or cancer. Social History: She does not smoke or drink or use any drugs. Review of Systems: All systems reviewed and they were negative except as mentioned in the HPI. Physical Examination: Vital Signs: Reviewed. Head and Neck: Pupils are equal, reactive to light. Intact eye movements. No JVD. No cervical lym phadenopathy. Neck is supple. Thyroid is not enlarged. Lungs: Clear to auscultation bilaterally. No rhonchi, wheezing, or crackles. No accessory muscle u se. Heart: Regular rate and rhythm. No extra sounds. Abdomen: Soft, nontender. Bowel sounds positive. No organomegaly. No masses or hernia. No rigidi ty or rebound. Extremities: No clubbing or cyanosis. Intact pulses. Skin: No rash. No nodules. Neurologic: Alert and awake, oriented x3. No acute focal deficits appreciated. Investigations: Troponin x3 are negative, BUN is 8 and creatinine 0.75 and hemoglobin 12.4. Echo sh owed normal heart function, normal diastolic function. No abnormalities. Assessment And Recommendations: 1. Chest pain. She had a CT scan of the chest that showed moderate LAD calcification, but cardiac en zymes are normal. At this moment, no further cardiac workup will be done as an inpatient. Once the patient's gastrointestinal tract issue is resolved, the patient can be released and she will follow u p as an outpatient. We will obtain cardiac stress test on her and her echo was entirely normal. 2. Vomiting, abdominal pain, diarrhea, likely gastroenteritis, being managed with antibiotics and hyd ration. 3. Hypothyroidism, on thyroid medicine. TSH is normal. 4. Coronary artery calcification in the LAD and cardiac enzymes are negative. Plan for outpatient ca rdiac stress test. SR/MODL Voice ID: [id number] Report ID: [id number]
[2025-03-05 05:55] LABS: Anion Gap 7.8 mEq/L (5.0-15.0); BUN Blood Urea Nitrogen 3.0 mg/dL (7-18); Glucose Level 111.0 mg/dL (74-106); Potassium 2.8 mEq/L (3.5-5.1)
[2025-03-05] MEDS: Magnesium Sulfate 2gm IVPB 2 G/50 ML BAG IV ONE (05:55)
--- NOTE | 2025-03-05 08:51 | ECHO ---
HEIGHT: 5 ft 4 in WEIGHT: 138 lb 0 oz DATE OF STUDY: 03/04/[address]: Prince Karla Napier MD 2-DIMENSIONAL: YES M.MODE: YES DOPPLER: YES COLOR FLOW: YES TDS: NO PORTABLE: YES DEFINITY: NO BUBBLE STUDY: NO DIAGNOSIS: CHEST PAIN CARDIAC HISTORY: CATHERIZATION: NO SURGERY: NO PROSTHETIC VALVE: NO PACEMAKER: NO MEASUREMENTS (cm) DIASTOLIC (NORMALS) SYSTOLIC (NORMALS) IVSd 0.9 (0.6-1.2) LA Diam 2.9 (1.9-4.0) LVEF 60-65% LVIDd 4.4 (3.5-5.7) LVIDs 2.9 (2.0-3.5) %FS 33% LVPWd 0.9 (0.6-1.2) Ao Diam 2.6 (2.0-3.7) 2 DIMENSIONAL ASSESSMENT: RIGHT ATRIUM: NORMAL LEFT ATRIUM: NORMAL RIGHT VENTRICLE: NORMAL LEFT VENTRICLE: NORMAL TRICUSPID VALVE: NORMAL MITRAL VALVE: NORMAL PULMONIC VALVE: NORMAL AORTIC VALVE: NORMAL PERICARDIAL EFFUSION: NONE AORTIC ROOT: NORMAL LEFT VENTRICULAR WALL MOTION: NORMAL. DOPPLER/COLOR FLOW: NORMAL. COMMENTS: 1. NORMAL LEFT VENTRICULAR EJECTION FRACTION 60-65%. 2. NORMAL WALL MOTION. 3. NORMAL DIASTOLIC FUNCTION. TECHNOLOGIST: JASON LOFTON
[2025-03-05] MEDS: KCL 20 MEQ/100 mL IVPB 20 MEQ/100 ML BAG IV SCH (11:00)
[2025-03-05] MEDS: PIPER TAZO 3.375 GM in NA CHLORIDE 0.9% 100 ML IV SCH (12:18)
[2025-03-05] MEDS: CEFTRIAXONE 2,000 MG in NA CHLORIDE 0.9% 100 ML IV SCH (12:51)
--- NOTE | 2025-03-05 13:03 | P.PN ---
Subjective Date of Service: 03/05/25 Chief Complaint: Chest pain/enterocolitis Subjective: No new changes (Patient continues to have multiple fever spikes, abdominal pain, nausea and diarrhea. She will benefit from infectious disease consult. Blood culture negative to date. Stool culture still pending.) Physical Examination - Vital Signs Temperature: 97.9 F Blood Pressure: 123/73 Pulse: 67 Respirations: 16 Pulse Ox (%): 97 - Physical Exam General: Acute distress HEENT: Atraumatic, Normocephalic Respiratory: Clear to auscultation bilaterally, Normal air movement Cardiovascular: No edema, Normal pulses, Regular rate/rhythm, Normal S1 S2 Gastrointestinal: Soft and benign, Non-distended, Tenderness Neurological: Normal speech Assessment And Plan - Plan Assessment 49-year-old female who returns to the hospital complaining of chest pain. First troponin is negative. EKG shows ST depression in inferior and lateral leads. CT reveals coronary artery disease with moderate LAD calcification. Additional findings on CT scan show enterocolitis. She is still having nausea, vomiting and diarrhea. Chest pain Coronary artery disease with moderate LAD calcificationsas per CT scan Enterocolitisrule out sepsis Hypoglycemia Lactic acidosisresolved Hypokalemia Hypothyroidism Plan: No significant improvement since admission Patient continues to have persistent fever spikes, nausea and diarrhea Blood and stool cultures negative to date Change antibiotics from Zosyn to Cipro/Flagyl as per ID recommendation Continue volume repletion Replace potassium and magnesium Currently on clear liquid diet. Advance diet as tolerated Continue PPI and antiemetics DVT prophylaxis Note, patient complained of chest pain as well when she came in. She has moderate coronary disease on CT chest. Cardiology recommends outpatient stress test
[2025-03-05] MEDS: CIPROFLOXACIN 400mg IV 400 MG/200 ML BAG IV SCH (13:48)
[2025-03-05] MEDS: METRONIDAZOLE 500mg IVPB 500 MG/100 ML BAG IV SCH (13:48)
--- NOTE | 2025-03-05 15:19 | P.CNS ---
Date of Consult: 03/05/25 Reason for consult: fever and History of Present Illness: Patient is a 49-year-old female here at the ER due to chest pain. Pt report had constant vomiting since 3 days ago. denied fever at the time but she has had persistent fever for the last few days. report abdominal pain as well. Her troponin is negative. EKG shows ST depression in inferior and lateral leads. CT chest revealed CT reveals coronary artery disease with moderate LAD calcification and enterocolitis. wbc is WNL. Pt had a fever today at 100.9 this morning. stool culture pending. pt is currently on cipro and flagyl. pt report watery stool x 5 times today. patient also had watery stool yday as well. Allergies levofloxacin [From Levaquin] Allergy (Verified 12/31/19 22:22) Rash Sulfa (Sulfonamide Antibiotics) Allergy (Verified 12/31/19 22:22) unknown tramadol Adverse Reaction (Verified 12/31/19 22:23) "makes me crazy" Current Medications Acetaminophen (Acetaminophen 325 Mg Tablet) 650 mg PO Q6H PRN PRN Reason: TEMP > 100' F Last Admin: 03/05/25 09:38 Dose: 650 mg Acetaminophen/Butalbital/Caffeine (Acetamin/Caffeine/Butalb Tab) 1 tab PO QIDP PRN PRN Reason: migraines Albuterol Sulfate (Albuterol 2.5 Mg/3 Ml Neb Humaira) 2.5 mg NEB Q6HP PRN PRN Reason: SHORTNESS OF BREATH Aspirin (Aspirin Ec 81 Mg Tab) 81 mg PO DAILY [facility] Last Admin: 03/05/25 09:37 Dose: 81 mg Cholecalciferol (Vitamin D 1000 Unit Tab) 1,000 unit PO DAILY [facility] Last Admin: 03/05/25 09:00 Dose: 1,000 unit Enoxaparin Sodium (Enoxaparin 40 Mg/0.4 Ml) 40 mg SQ DAILY [facility] Last Admin: 03/05/25 09:00 Dose: Not Given Eszopiclone (Eszopiclone 1 Mg Tab) 2 mg PO BEDTIME [facility] Last Admin: 03/04/25 20:21 Dose: 2 mg Dextrose/Sodium Chloride (D5w Ns 1-Liter Bag) 1,000 mls @ 100 mls/hr IV .Q10H [facility] Last Admin: 03/05/25 13:48 Dose: 1,000 mls Metronidazole/Sodium Chloride (Flagyl 500mg/100 Ml Iv Premix) 500 mg in 100 mls @ 200 mls/hr IV Q8HR [facility]; Protocol Last Admin: 03/05/25 13:48 Dose: 100 mls Ciprofloxacin/Dextrose (Cipro 400 Mg/200 Ml Ivpb (Premix)) 400 mg in 200 mls @ 200 mls/hr IV Q12HR [facility]; Protocol Last Admin: 03/05/25 13:48 Dose: 200 mls Ipratropium Perry (Ipratropium Brom 0.5mg/2.5ml) 0.5 mg NEB Q6HP PRN PRN Reason: SHORTNESS OF BREATH Levothyroxine Sodium (Levothyroxine Sod 0.05 Mg Tablet) 0.15 mg PO ACB [facility] Last Admin: 03/05/25 09:37 Dose: 0.15 mg Magnesium Oxide (Magnesium Oxide 400 Mg Tab) 400 mg PO DAILY [facility] Last Admin: 03/05/25 09:37 Dose: 400 mg Morphine Sulfate (Morphine 2 Mg/Ml Syr) 2 mg IV Q4H PRN PRN Reason: Pain scale 5-7 (Moderate) Last Admin: 03/05/25 12:12 Dose: 2 mg Nitroglycerin (Nitroglycerin 0.4 Mg/Tab) 0.4 mg SL UD PRN PRN Reason: Pain scale 2-4 (Mild) Ondansetron HCl (Ondansetron 4 Mg/2 Ml Vial) 4 mg IV Q6HP PRN PRN Reason: NAUSEA / VOMITING Last Admin: 03/05/25 12:45 Dose: 4 mg Thyroid (Thyroid 30 Mg Tab) 60 mg PO ACB [facility] Last Admin: 03/05/25 09:37 Dose: 60 mg - Past Medical/Surgical History Diabetic: No -: migraines -: hypothyroidism -: -: cholecystectomy - Social History Alcohol use: No CD- Drugs: Yes Caffeine use: Yes Objective Temp Pulse Resp BP Pulse Ox 97.9 F 67 16 123/73 97 03/05/25 13:05 03/05/25 13:05 03/05/25 13:05 03/05/25 13:05 03/05/25 13:05 Physical Examination - Physical Exam General: Acute distress HEENT: Atraumatic, Normocephalic Respiratory: Clear to auscultation bilaterally, Normal air movement Cardiovascular: No edema, Normal pulses, Regular rate/rhythm, Normal S1 S2 Gastrointestinal: Soft and benign, Non-distended, Tenderness on palpation Neurological: Normal speech Microbiology 03/03/25 07:15 Blood - Blood Aerobic Blood Culture - Preliminary No growth in 24 hours. 03/03/25 07:15 Blood - Blood Anaerobic Blood Culture - Preliminary No growth in 24 hours. 03/03/25 07:00 Blood - Blood Aerobic Blood Culture - Preliminary No growth in 24 hours. 03/03/25 07:00 Blood - Blood Anaerobic Blood Culture - Preliminary No growth in 24 hours. Labs: 4.5 wbc, Hgb 12.4, plt count 129, bun 3, cr 0.60, albumin 3.0 Assessment and Planning 1. fever secondary to enterocolitis 2. persistent diarrhea 3. moderate protein calorie malnourishment 4. coronary artery disease with moderate LAD calcification 5. thrombocytopenia continue cipro and flagyl x 7 days blood culture neg stool culture pending order c diff and H pylori recommend to increase water intake will continue to monitor for infection with wbc and fever trend thank you for the consult case discussed and in agreement with Dr kurtz
[2025-03-05] MEDS: POTASSIUM 25 MEQ EFFERV TAB PO ONE (18:33)
[2025-03-05 22:00] VITALS: O2SAT 96
[2025-03-06 06:22] LABS: Anion Gap 6.0 mEq/L (5.0-15.0); Glucose Level 117 mg/dL (74-106); Magnesium 1.8 mg/dL (1.6-2.4); Potassium 3.0 mEq/L (3.5-5.1)
[2025-03-06 06:24] LABS: BUN Blood Urea Nitrogen < 3 mg/dL (7-18)
[2025-03-06] MEDS ORDERED: ALBUTEROL 2.5 MG/3 ML NEB SOL NEB PRN (07:33)
[2025-03-06] MEDS ORDERED: IPRATROPIUM BROM 0.5MG/2.5ML NEB PRN (07:34)
[2025-03-06] MEDS: POTASS/SODIUM PHOSPHATE 1 PKT POWD.PACK PO SCH (08:30)
[2025-03-06] MEDS: POTASSIUM 25 MEQ EFFERV TAB PO ONE (08:30)
[2025-03-06] MEDS: POTASSIUM CL SA 10 MEQ TAB PO ONE (08:34)
[2025-03-06] MEDS: POTASSIUM CL 40 MEQ in NA CHLORIDE 0.9% 500 ML IV SCH (08:38)
[2025-03-06] MEDS: POTASSIUM PHOS 30 MM in NA CHLORIDE 0.9% 500 ML IV ONE (11:37)
[2025-03-06 14:29] LABS: White Blood Count 3.00 thou/uL (4.3-10.9)
[2025-03-06 14:40] LABS: Anion Gap 11.3 mEq/L (5.0-15.0); Glucose Level 106 mg/dL (74-106); Magnesium 2.0 mg/dL (1.6-2.4); Potassium 4.3 mEq/L (3.5-5.1)
[2025-03-06 14:41] LABS: BUN Blood Urea Nitrogen < 3 mg/dL (7-18)
[2025-03-06 15:05] LABS: Absolute Lymphocytes (CBC) 0.8 K/uL (0.7-4.9); Hematocrit 34.4 % (36.0-45.0); Hemoglobin 12.1 g/dL (12.0-15.0); MCH 31.8 pg (27.0-35.0); MCHC 35.2 g/dL (32.0-36.0); MCV 90.3 fL (80-100); MPV 8.6 fL (7.6-11.3); Nucleated RBC Absolute Count 0.0 (0-0); Nucleated Red Blood Cells % 0.3 % (0-0); RBC Red Blood Cell Count 3.81 M/uL (3.86-4.86)
--- NOTE | 2025-03-06 15:22 | P.DS ---
Admission Date: 03/04/25 Discharge Date: 03/06/25 Disposition: ROUTINE DISCHARGE Discharge Condition: GOOD Reason for Admission: Chest pain/enterocolitis Brief History of Present Illness: Patient is a 49-year-old female currently on her second visit to the ER for chest pain. She returned to the ER complaining of chest and abdominal pain and vomiting. Her troponin is negative. EKG shows ST depression in inferior and lateral leads. CT chest revealed enterocolitis. Patient has a history of migraine headache and hypothyroidism. Otherwise, no significant cardiopulmonary disease. Her basic labs are unremarkable except for lactic acid of 2.5. Hospital Course: Patient stayed in the hospital for enterocolitis. She had to be placed on antibiotics due to persistent fever and concern for sepsis. Her symptoms persisted despite Zosyn. Antibiotics were changed to Cipro and Flagyl as per ID recommendations as she continued to spike high-grade fever. She is doing well for the first time. She is able to tolerate diet. Her nausea, vomiting and diarrhea have subsided. She remained in the hospital for electrolyte replacement. At this time, she is medically cleared for discharge. Vital Signs/Physical Exam: Temp Pulse Resp BP Pulse Ox 97.7 F 70 18 132/74 99 03/06/25 12:00 03/06/25 12:00 03/06/25 12:00 03/06/25 12:00 03/06/25 12:00 General: Alert, In no apparent distress, Cooperative HEENT: Atraumatic, Normocephalic Respiratory: Clear to auscultation bilaterally, Normal air movement Cardiovascular: No edema, Normal pulses, Regular rate/rhythm, Normal S1 S2 Gastrointestinal: Soft and benign, Non-distended Neurological: Normal speech Laboratory Data at Discharge: WBC 4.50 thou/uL (4.3-10.9) 03/04/25 08:48 Hgb 12.4 g/dL (12.0-15.0) D 03/04/25 08:48 Hct 36.4 % (36.0-45.0) 03/04/25 08:48 Plt Count 129 thou/uL (152-406) L D 03/04/25 08:48 PT 14.3 SECONDS (10-13.0) H 03/03/25 09:57 INR 1.27 03/03/25 09:57 APTT 23.4 SECONDS (27.2-37.4) L 03/03/25 09:57 Sodium 140 mEq/L (136-145) 03/06/25 14:10 Potassium 4.3 mEq/L (3.5-5.1) 03/06/25 14:10 Potassium 4.3 mEq/L (3.5-5.1) D 03/06/25 14:10 BUN < 3 mg/dL (7-18) L 03/06/25 14:10 Creatinine 0.33 mg/dL (0.55-1.02) L 03/06/25 14:10 Glucose 106 mg/dL (74-106) 03/06/25 14:10 Phosphorus 3.6 mg/dL (2.5-4.9) 03/06/25 14:10 Magnesium 2.0 mg/dL (1.6-2.4) 03/06/25 14:10 Total Bilirubin 0.3 mg/dL (0.2-1.0) 03/04/25 08:48 AST 23 U/L (15-37) 03/04/25 08:48 ALT 17 U/L (13-56) 03/04/25 08:48 Alkaline Phosphatase 49 U/L (45-117) D 03/04/25 08:48 Lipase 31 U/L (13-75) 03/03/25 07:15 Home Medications: Butalb/Acetaminophen/Caffeine [Qckqzy-Scdpubce-Mcrw 50-325-40] 1 tab PO QIDP PRN 12/31/19 Levothyroxine Sodium 150 mcg PO DAILY 11/15/20 Cholecalciferol (Vitamin D3) [Vitamin D3] 1 tab PO DAILY 03/03/25 Eszopiclone [Lunesta] 2 mg PO BEDTIME 03/03/25 Magnesium Oxide [Magnesium] 250 mg PO DAILY 03/03/25 Thyroid,Pork [Thyroid] 60 mg PO DAILY 03/03/25 Ciprofloxacin HCl [Cipro 500 MG Tablet] 500 mg PO BID #14 tab 03/06/25 metroNIDAZOLE [Flagyl] 500 mg PO Q8H #15 tab 03/06/25 New Medications: Ciprofloxacin HCl [Cipro 500 MG Tablet] 500 mg PO BID #14 tab metroNIDAZOLE [Flagyl] 500 mg PO Q8H #15 tab Followup: Maggie Becker NP [Primary Care Provider] -
[2025-03-06 16:29] VITALS: BP 147/72; TEMP 97.8
== END 2025-03-06 16:52 | disposition home or self-care (01) | DRG 872 ==
LOC: ER 06:33 → ERHOLD 09:27 → 2ND 17:22 → OBSVTOIN 03-04 12:34
PROVIDERS: ADMIT Internal Medicine; ATTEND Internal Medicine
PROC: 02HV33Z Insertion of Infusion Device into Superior Vena Cava, Percutaneous Approach (ICD-10-PCS; principal; 2025-03-05)
DX: A41.9 Sepsis, unspecified organism (principal); A09 Infectious gastroenteritis and colitis, unspecified; E87.20 Acidosis, unspecified; E44.0 Moderate protein-calorie malnutrition; E87.6 Hypokalemia; D69.6 Thrombocytopenia, unspecified; E03.9 Hypothyroidism, unspecified; E16.2 Hypoglycemia, unspecified; I25.10 Atherosclerotic heart disease of native coronary artery without angina pectoris; Z88.2 Allergy status to sulfonamides; Z88.5 Allergy status to narcotic agent; Z88.1 Allergy status to other antibiotic agents; Z68.23 Body mass index [BMI] 23.0-23.9, adult; Z90.710 Acquired absence of both cervix and uterus; Z79.890 Hormone replacement therapy; Z79.899 Other long term (current) drug therapy
CPT/HCPCS: 36415; 71045; 71275; 74175; 80048; 80053; 80076; 81003; 82947; 83605; 83690; 83735; 83880; 84100; 84132; 84439; 84443; 84481; 84484; 85025; 85610; 85730; 87040; 87338; 93005; 93306; 96365; 96366; 96372; 96375; 99285; G0378; J0696; J0744; J1650; J2270; J2405; J2543; J2550; J3475; J3480; J7030; J7040; J7042; Q9967